=== PATIENT | male | born 1960 | race Caucasian/White ===

== ENCOUNTER 2020-02-23 20:24 | Emergency (ER) | payer OTHER, SELFPAY ==
[2020-02-23 20:25] VITALS: BP 137/79; PULSE 87; RESP 18; TEMP 38.1; O2SAT 95; BMI 30.8
--- NOTE | 2020-02-23 20:51 | ED.DCSUM_ITS ---
- ER Visit Summary Date of Service: 02/23/20 Chief Complaint: Shortness of breath History of Present Illness: The patient is a 60 M who presents with shortness of breath that has been constant for the past week. Patient states he feels like he has a tightness in his chest. Patient states it is worse with coughing and with deep breathing. Patient states he has been exposed to COVID-19. Patient denies any sputum production. Patient admits to a occasional episode of nausea and vomiting. Patient states he had a temperature at home of 101. Patient also admits to loss of smell. Physical Examination: Vital signs are stable. Patient does have a temperature of 100.5 here. Patient is in no acute distress. Oral mucosa is pink and moist. Neck is supple. Trachea is midline. There is no JVD. Heart was regular rate and rhythm. Lungs are clear and equal bilaterally. Abdomen is soft. Bowel sounds are normal. There is no tenderness. Cranial nerves II through XII are intact. There are no focal motor or sensory deficits. Test Results: CBC and comprehensive metabolic profile were obtained and were within normal limits. Verbal chest x-ray was obtained. There is interstitial infiltrates in the lungs bilaterally. There is questionable early groundglass infiltrates. Blood cultures were obtained and are pending. COVID-19 and respiratory panel were obtained and are pending. Emergency Department Course and Treatment: Patient was given albuterol inhaler here. Patient's pulse oximeter remained above 91% on room air. Patient was advised to get an [id number] pulse oximeter monitor. Patient was instructed to use his inhaler as needed. Patient was instructed to follow-up with his primary care physician in 3 to 5 days. Patient was instructed return if any worsening shortness of breath, chest pain, or worse in any way. Patient understood and was agreeable with the plan. All questions were answered. Disposition: Discharge home Impression: 1. Pneumonia 2. Likely COVID-19 This note was generated with Uniph[employer] dictation software. It may contain incorrect words, spelling, and punctuation that were not noted in review of the chart prior to signing ED Disposition - Plan for ED Patient: Disposition: Home or Assisted Living Diagnosis: Pneumonia, Suspected COVID-19 virus infection Instructions: ED PNEUMONITIS Adult Referrals: Brown Brady MD [NON-STAFF] - 3-5 Days Additional Instructions: Get an [id number] pulse oximeter monitor and check your oxygen level 3-4 times per day. Return if your oxygen level is below 90 %. Return to the emergency department if any more difficulty breathing or if you are worse in any way.
[2020-02-23] MEDS: Acetaminophen 500 MG Tablet 1000 MG PO (21:09)
--- NOTE | 2020-02-23 21:10 | RAD_ITS ---
STUDY: X-RAY CHEST REASON FOR EXAM: Male, 60 years old. Shortness of breath since yesterday. Fever and cough. Loss of smell. Body aches. TECHNIQUE: Single AP portable view of the chest. COMPARISON: None. FINDINGS: The lungs are well expanded. There is vague interstitial densities throughout both lungs which may represent early groundglass infiltrates. There is no demonstrated pleural abnormality. Normal size heart. Normal mediastinum and demarcus. Normal visualized pulmonary arteries. Normal visualized aortic arch and descending thoracic aorta. The thoracic spine is obscured by the mediastinum. Normal visualized ribs, clavicles, and shoulders. There is no demonstrated abnormality of the visualized soft tissue structures of the upper abdomen. RAD/Chest 1 View (Portable) IMPRESSION: Interstitial infiltrates in lungs. Question early groundglass infiltrates. Electronically Signed: Donald Noble DO at 21:38 EST Tel [phone], Service support ,
[2020-02-23 21:14] LABS: Absolute Lymphocyte Count 1.82 X10^3/uL (0.83-4.51); Absolute Neutrophil Count 4.9 X10^3/uL (2.0-7.7); Basophil# 0.01 X10^3/uL; Basophil% 0.1 % (0-1); Eosinophils% 1.4 % (0-5); Hematocrit 43.7 % (40-54); Hemoglobin 14.6 g/dL (13.0-16.5); Lymphocyte # 1.82 X10^3/ul (4.0); Lymphocyte % 25.5 % (19-41); Mean Corp Hgb Conc 33.4 g/dL (32-36); Mean Corpuscular Hgb 30.7 pg (27.0-32.0); Mean Platelet Vol. 10.1 fl (6.2-12.0); Monocyte# 0.25 X10^3/uL; Monocyte% 3.5 % (0-10); NRBC Flagged by Analyzer 0 % (0-5); Neutrophil # 4.93 X10^3/uL (2.7-7.7); Neutrophil % 69.2 % (47-70); POSITIVE MORPHOLOGY YES; Platelet Count 209 K/mm3 (150-450); RBC Distribution Width CV 11.7 % (11.6-14.6); RBC Distribution Width SD 39.5 fl (35.1-43.9); Red Blood Count 4.75 M/mm3 (4.6-6.2); White Blood Count 7.1 K/mm3 (4.4-11.0)
[2020-02-23 21:20] VITALS: BP 141/73; PULSE 87; RESP 18; TEMP 37.5; O2SAT 93
[2020-02-23 21:30] LABS: ALB/GLOB Ratio 0.9 RATIO (0.9-2.4); AST(SGOT) 36 U/L (15-37); Alanine Aminotransfer ALT/SGPT 53 U/L (16-61); Albumin, Serum 3.3 g/dL (3.2-5.0); Alkaline Phosphatase 90 U/L (45-117); Anion Gap 7 (5-15); BUN 13 mg/dL (7-18); BUN/Creat Ratio 12.4 RATIO (10-20); Calcium,Total 8.2 mg/dL (8.5-10.1); Chloride 103 mmol/L (98-107); Creatinine, Serum 1.05 mg/dL (0.70-1.30); Differential Indicated SCAN CRITERIA MET; EST Glomerular Filtration Rate 77 mL/min (>60); Est Glom Filt Rate - Afr Amer 93 mL/min (>60); Estimated Creatinine Clearance 83.14 ml/min; Globulin 3.7 g/dL (2.2-4.2); Glucose 133 mg/dL (74-106); Potassium 3.5 mmol/L (3.5-5.1); Sodium Level 137 mmol/L (136-145)
[2020-02-23 21:42] LABS: Differential Comment SCANNED
[2020-02-23 22:36] VITALS: BP 102/72; PULSE 80; RESP 16; TEMP 37.3; O2SAT 92
[2020-02-23 23:08] VITALS: BP 102/72; PULSE 80; RESP 16; TEMP 37.3; O2SAT 92
== END 2020-02-23 23:09 | disposition home or self-care (01) ==
PROVIDERS: Emergency Provider Emergency Medicine
DX: U07.1 COVID-19 (principal); J12.89 Other viral pneumonia
CPT/HCPCS: 71045; 80053; 85025; 87040; 87633; 87635; 99284; A4216; U0003

== ENCOUNTER 2020-02-26 10:38 | Inpatient (IN) | payer OTHER, SELFPAY ==
[2020-02-26] VITALS (8 sets, daily range): BP systolic 115–131; BP diastolic 70–79; PULSE 74–81; RESP 15–22; TEMP 37.2–37.7; O2SAT 88–97; BMI 30.7; BMI 29.2
--- NOTE | 2020-02-26 10:54 | EKG12_ITS ---
Test Reason : SOB Blood Pressure : / mmHG Vent. Rate : 079 BPM Atrial Rate : 079 BPM P-R Int : 138 ms QRS Dur : 092 ms QT Int : 370 ms P-R-T Axes : 027 016 016 degrees QTc Int : 424 ms Normal sinus rhythm Low voltage QRS (Limb Leads) Confirmed by LENNOX SERRATO, LATRICIA ([id number]), production editor GOMEZ CASTANEDA ([id number]) on 02/28/2020 12:56:03 PM Referred By: CHAMP/BRENDA Confirmed By:LATRICIA HIGH MD
--- NOTE | 2020-02-26 10:56 | ED.VISSUMM ---
- ER Visit Summary Date of Service: 02/26/20 Chief Complaint: Shortness of breath, low pulse ox History of Present Illness: The patient is a 60 M who complains of shortness of breath. Patient was seen here 3 days ago for concerns for coronavirus. His lab work looks fantastic but his chest x-ray showed some interstitial infiltrates. Coronavirus test was sent out but is not resulted yet. He returns today because of continued shortness of breath. His pulse ox was 84% on room air. He has been using an albuterol inhaler at home. He denies a history of asthma or COPD. He is a non-smoker. He is not on home oxygen. He has no chest pain. He has been having fevers at home. He has had a cough that is productive of sputum intermittently. He has no other health issues. Physical Examination: Vital signs reviewed. His pulse ox is 92% on 2 L nasal cannula. HEENT exam unremarkable. Heart is regular rate and rhythm without murmurs. Lungs have rhonchorous breath sounds bilaterally. Abdomen is soft and nontender. Extremities reveal no edema. Skin exam normal. Neurologic exam normal. Test Results: EKG is sinus rhythm with no ischemic changes. White blood cell count is increased to 12.9. Glucose 113. Troponin normal. Lactate 2.5. Chest x-ray shows worsening bilateral infiltrates Emergency Department Course and Treatment: I reviewed the patient's visit from February 22. His coronavirus test is still pending but given his symptomatology and chest x-ray findings it is fairly certain that this patient has coronavirus. He is still requiring oxygen at 2 L nasal cannula he is 92 to 93% on this. I discussed with the hospitalist for admission due to his hypoxia. She requested that we send a rapid test for confirmation. This will be performed the patient will be admitted to the Covid unit Treatment Plan: [] Disposition: Admit Impression: COVID-19, hypoxia, severe sepsis due to a viral source This note was generated with ViewRayation software. It may contain incorrect words, spelling, and punctuation that were not noted in review of the chart prior to signing ED Disposition - Plan for ED Patient: Referrals: Care Physician,No Primary [Primary Care Provider] -
--- NOTE | 2020-02-26 11:11 | RAD_ITS ---
STUDY: X-RAY CHEST REASON FOR EXAM: Male, 60 years old. patient was tested for covid, no results yet, cough, sob x 9 days TECHNIQUE: Single AP portable view of the chest. COMPARISON: 02/23/2020 FINDINGS: Increase in alveolar densities in both lungs consistent with worsening bilateral pneumonia. Azygos fissure consistent with an azygos lobe which is normal variant. Normal size heart. Normal mediastinum and demarcus. Normal visualized pulmonary arteries. Normal visualized aortic arch and descending thoracic aorta. Normal visualized thoracic spine. Normal visualized ribs, clavicles, and shoulders. There is no demonstrated abnormality of the visualized soft tissue structures of the upper abdomen. RAD/Chest 1 View (Portable) IMPRESSION: Worsening bilateral pneumonia. Electronically Signed: Ernst Fuentes MD at 11:43 EST Tel , Service support ,
[2020-02-26 11:54] LABS: Absolute Lymphocyte Count 2.68 X10^3/uL (0.83-4.51); Absolute Neutrophil Count 9.9 X10^3/uL (2.0-7.7); Basophil# 0.02 X10^3/uL; Basophil% 0.2 % (0-1); Hemoglobin 14.3 g/dL (13.0-16.5); Lymphocyte # 2.68 X10^3/ul (4.0); Lymphocyte % 20.8 % (19-41); Mean Corp Hgb Conc 33.3 g/dL (32-36); Mean Corpuscular Hgb 30.9 pg (27.0-32.0); Mean Corpuscular Volume 92.9 fL (80-94); Mean Platelet Vol. 10.4 fl (6.2-12.0); Monocyte# 0.27 X10^3/uL; Monocyte% 2.1 % (0-10); NRBC Flagged by Analyzer 0 % (0-5); Neutrophil # 9.85 X10^3/uL (2.7-7.7); Neutrophil % 76.4 % (47-70); Platelet Count 284 K/mm3 (150-450); RBC Distribution Width CV 11.9 % (11.6-14.6); RBC Distribution Width SD 41.1 fl (35.1-43.9); Red Blood Count 4.63 M/mm3 (4.6-6.2); White Blood Count 12.9 K/mm3 (4.4-11.0)
[2020-02-26 11:58] LABS: International Normalized Ratio 1.1; Prothrombin Time (Protime)PT. 13.5 SECONDS (11.7-14.9)
[2020-02-26 11:59] LABS: Partial Thromboplast Time 34.6 Seconds (24.1-36.2)
[2020-02-26 12:07] LABS: ALB/GLOB Ratio 0.6 RATIO (0.9-2.4); AST(SGOT) 39 U/L (15-37); Alanine Aminotransfer ALT/SGPT 41 U/L (16-61); Albumin, Serum 2.8 g/dL (3.2-5.0); Alkaline Phosphatase 87 U/L (45-117); Anion Gap 8 (5-15); BUN 13 mg/dL (7-18); Calcium,Total 8.7 mg/dL (8.5-10.1); Chloride 106 mmol/L (98-107); EST Glomerular Filtration Rate 82 mL/min (>60); Est Glom Filt Rate - Afr Amer 99 mL/min (>60); Globulin 4.4 g/dL (2.2-4.2); Glucose 113 mg/dL (74-106); Potassium 3.5 mmol/L (3.5-5.1); Protein, Total 7.2 g/dL (6.4-8.2); Sodium Level 139 mmol/L (136-145)
[2020-02-26 12:30] LABS: Lactic Acid 2.5 mmol/L (0.4-1.9)
[2020-02-26 12:34] LABS: Mucous, Urine 0 SEEN /hpf (<or=2+); Squamous Epithelial Cells - UA 0 SEEN /hpf (0-5)
[2020-02-26 12:36] LABS: Color, Urine Yellow (Yellow); Glucose, Dipstick Normal (Normal); Ketone-Dipstick 50 mg/dl (Negative); Leukocyte Esterase-Dipstick 25 /ul (Negative); Nitrite-Dipstick Negative (Negative); Occult Blood-Urine 10 /ul (Negative); Protein-Dipstick 30 mg/dl (Negative); Specific Gravity, Urine 1.015 (1.002-1.030); Urine Bilirubin Dipstick Negative (Negative); Urine Clarity Clear (Clear); Urine Urobilinogen 4 mg/dl (Normal); Urine pH 6.5 (5.0 - 8.0)
--- NOTE | 2020-02-26 12:40 | HP.PCM_ITS ---
Problem List (1) Hypoxia Status: Acute (2) COVID-19 Status: Acute (3) Lactic acid acidosis Status: Acute (4) Leucocytosis Status: Acute Qualifiers: Leukocytosis type: unspecified Qualified Code(s): D72.829 - Elevated white blood cell count, unspecified History of Present Illness Date of Admission: 02/26/20 Chief Complaint: SOB, cough, fever - 9 days The patient is a 60 year old M no significant past medical history who comes in with complaints of shortness of breath that started about 9 to 10 days ago. Patient was seen in the emergency department on 02/23/20 fever and worsening shortness of breath. He was discharged home on an inhaler continuous pulse oximeter remained above 91%. An outpatient test was sent out. Patient admitted that he might have been exposed on 02/10/20 at an [facility] wedding. He admits to not wearing a mask. He however has not been quarantining and because he said nobody told him to quarantine. He complains of progressive shortness of breath and fevers at home. Vitals in the ED showed temp 100.5F, HR 87, BP 137/79, RR 18, SpO2 95%. WBC count is 12.9, hemoglobin 14.3, platelet count is 284, INR 1.1, CMP is unremarkable. Lactic acid 2.5, UA unremarkable. COVID-19 PCR positive. Admitting chest x-ray showed worsening bilateral pneumonia Past Medical History Allergies No Known Allergies Allergy (Verified 02/26/20 10:48) Home Medications: Ambulatory Orders Medication Instructions Recorded Albuterol IH (ProAir) [Proair Hfa 1 - 2 puff INHALATION Q4H PRN PRN 02/26/20 (SP)Vent Pts] Surgical History: no surgical history Psychiatric History: No pertinent psych hx Lives: Alone Smoking Status: Former smoker Tobacco Use: Non-smoker Alcohol: None Drugs: None - *Family History Maternal History Items: No pertinent history Paternal History Items: No pertinent history Review of Systems Constitutional: Reports: Fever, Malaise, Weakness, Fatigue. Denies: Anorexia, Chills, Weight Change Eyes: Denies: Blurred vision, Cataracts, Drainage, Eyelid Inflammation HEENT: Denies: Difficulty Hearing, Difficulty Swallowing, Head Aches, Hearing Changes, Nasal bleeding, Nasal Congestion, Sinus Congestion, Sinus Drainage Cardiovascular: Denies: Chest Pain, Claudication, Heaviness, Light Headedness, Palpitations Respiratory: Reports: Shortness of Breath, Shortness of breath at rest, Shortness of breath upon exertion. Denies: Cough, Sputum production Gastrointestinal: Denies: Abdominal Pain, Constipation, Hematemesis, Hematochezia, Nausea, Vomiting Genitourinary: Denies: Dysuria Musculoskeletal: Denies: Joint Pain, Joint stiffness, Joint swelling, Joint Tenderness Skin: Denies: Rash, Wounds Neurological: Denies: Numbness, Tingling, Focal weakness Psychiatric: Denies: Anxiety, Depression, Homicidal Ideations, Suicidal Ideations Hematologic/ Lymphatic: Denies: Easy Bruising, Easy Bleeding VTE Information - Inpt Only VTE Present on Admission: No VTE Pharm Prophylaxis ordered?: Yes Patient Problems: Active and Suspected Problems Hypoxia (Acute) COVID-19 (Acute) Lactic acid acidosis (Acute) Leucocytosis (Acute) - Physical Exam Vitals/I&O's: Vital Signs Temp Pulse Resp BP Pulse Ox 99.2 F H 81 21 H 117/71 92 02/26/20 11:01 02/26/20 10:46 02/26/20 10:46 02/26/20 10:46 02/26/20 10:46 Oxygen Flow Rate (L/min) 2 Oxygen Delivery Method Nasal Cannula Weight: 102.8 kg Body Mass Index (BMI) 30.7 General: Alert, Oriented x3, Cooperative, No apparent distress HEENT: Atraumatic, PERRLA, EOMI, Normocephalic Oral: Moist Mucosa Neck: Supple Lungs: Diminished Cardiovascular: Regular rate, Regular Rhythm, Normal S1, Normal S2, No murmurs Abdomen: Bowel Sounds Present, Soft, Non Tender, Non-Distended, No Hepato- splenomegaly Extremities: No edema Skin: No rashes Musculoskeletal: No Tenderness to Palpation of Joints or Extremities Lymphatic: No Cervical, Supraclavicular, or Inguinal Adenopathy Neurological: Cranial nerves II-XII grossly intact, Neuro grossly intact Psych/Mental Status: Normal Affect, Appropriate Laboratory Results 02/26/20 10:50: WBC 12.9 H, RBC 4.63, Hgb 14.3, Hct 43.0, MCV 92.9, MCH 30.9, MCHC 33.3, RDW Std Deviation 41.1, RDW Coeff of Soumya 11.9, Plt Count 284, MPV 10.4, Immature Gran % (Auto) 0.500, Neut % (Auto) 76.4 H, Lymph % (Auto) 20.8, Nuckolls % (Auto) 2.1, Eos % (Auto) 0.0, Baso % (Auto) 0.2, Absolute Neuts (auto) 9.9 H, Absolute Lymphs (auto) 2.68, Nucleated RBC % 0 02/26/20 10:50: PT 13.5, INR 1.1, APTT 34.6 02/26/20 10:50: Sodium 139, Potassium 3.5, Chloride 106, Carbon Dioxide 25.0, Anion Gap 8, BUN 13, Creatinine 1.00, Estim Creat Clear Calc 87.30, Est GFR (MDRD) Af Amer 99, Est GFR (MDRD) Non-Af 82, BUN/Creatinine Ratio 13.0, Glucose 113 H, Calcium 8.7, Total Bilirubin 0.70, AST 39 H, ALT 41, Alkaline Phosphatase 87, Troponin I < 0.015, Total Protein 7.2, Albumin 2.8 L, Globulin 4.4 H, Albumin/Globulin Ratio 0.6 L 02/26/20 10:50: Lactic Acid 2.5 H* 02/26/20 12:20: Urine Color Yellow, Urine Clarity Clear, Urine pH 6.5, Ur Specific [place] 1.015, Urine Protein 30 H, Urine Glucose (UA) Normal, Urine Ketones 50 H, Urine Occult Blood 10 H, Urine Nitrite Negative, Urine Bilirubin Negative, Urine Urobilinogen 4 H, Ur Leukocyte Esterase 25 H, Urine RBC Pending, Urine WBC Pending, Ur Squamous Epith Cells Pending, Urine Bacteria Pending, Urine Mucus Pending Assessment/Plan All Active Problems Hypoxia (Acute) COVID-19 (Acute) Lactic acid acidosis (Acute) Leucocytosis (Acute) 1. Acute hypoxic respiratory insufficiency secondary to acute COVID-19 infection Continue with breathing treatments, IV steroids, encourage use of incentive spirometer. Wean off oxygen for SPO2 more than 94% 2. Acute COVID-19 with hypoxia, Started on IV dexamethasone. Will check D-dimer ID and pulmo consulted 3. Lactic acidosis secondary to hypoxia 4. DVT PPx- Lovenox SC Inpatient E&M: [id number] Init Hosp L2
[2020-02-26 12:42] LABS: Bacteria 1+ /hpf (None Seen); Red Blood Cells-Urine 0-5 SEEN /hpf (0-5); White Blood Cells 0-5 SEEN /hpf (0-5)
[2020-02-26] MEDS: dexAMETHasone 10 MG/ML Vial IV (12:59)
[2020-02-26] MEDS: 0.9% Normal Saline 1,000 ML 150 ML IV (13:00)
[2020-02-26 14:07] LABS: Probe Check PASS; Specimen Processing Control PASS
[2020-02-26 15:34] LABS: Reflex Lactate? Y
[2020-02-26 17:17] LABS: D-Dimer Quantitative (DVT/PE) 0.84 FEU/ug/m (0.27-0.49)
[2020-02-26 17:26] LABS: Lactic Acid 1.3 mmol/L (0.4-1.9)
--- NOTE | 2020-02-26 18:50 | CT_ITS ---
STUDY: CTA CHEST REASON FOR EXAM: Male, 60 years old. SOB AND COUGH X 9-10 DAYS,+ COVID TEST RADIATION DOSAGE (If Supplied By Facility): CTDIvol = ( 13.84 ) mGy, DLP = ( 555.60 ) mGycm TECHNIQUE: The examination was performed with the intravenous administration of IV 100mL Isovue-370. Post-processing of the angiographic images was performed, with multiplanar reformation and 3D reconstruction. Individualized dose optimization techniques were used for this CT. COMPARISON: None. FINDINGS: Normal enhancement of the main pulmonary artery and right and left pulmonary arteries. Normal enhancement of the bilateral peripheral pulmonary arteries. There is no demonstrated pulmonary embolism. Normal thoracic aorta and visualized great vessels. There is no demonstrated aortic dissection. Normal heart and pericardium. Mild mediastinal adenopathy. Normal hilar regions. Normal visualized trachea and bronchi. The lungs are well expanded. Bilateral diffuse infiltrates. Normal chest wall structures. Degenerative vertebral changes. Small hiatal hernia. CT/CTA Chest W/WO Contrast IMPRESSION: No demonstrated pulmonary embolism or arterial dissection. Bilateral diffuse pulmonary infiltrates. Mild mediastinal adenopathy. Small hiatal hernia. Electronically Signed: Castro Cordon DO at 20:43 EST Tel [phone], Service support ,
[2020-02-26] MEDS: Enoxaparin 30 MG/0.3 ML Syringe SC (21:50)
[2020-02-27] VITALS (8 sets, daily range): BP systolic 115–128; BP diastolic 64–75; PULSE 67–84; RESP 18–20; TEMP 36.9–38.2; O2SAT 90–94
[2020-02-27] MEDS: Acetaminophen 325 MG Tablet 650 MG PO (00:22)
[2020-02-27 05:46] LABS: Absolute Lymphocyte Count 3.83 X10^3/uL (0.83-4.51); Absolute Neutrophil Count 12.1 X10^3/uL (2.0-7.7); Basophil# 0.01 X10^3/uL; Basophil% 0.1 % (0-1); Hemoglobin 13.7 g/dL (13.0-16.5); Lymphocyte # 3.83 X10^3/ul (4.0); Lymphocyte % 23.4 % (19-41); Mean Corp Hgb Conc 33.4 g/dL (32-36); Mean Corpuscular Hgb 30.9 pg (27.0-32.0); Mean Corpuscular Volume 92.6 fL (80-94); Mean Platelet Vol. 10.3 fl (6.2-12.0); Monocyte# 0.37 X10^3/uL; Monocyte% 2.3 % (0-10); NRBC Flagged by Analyzer 0 % (0-5); Neutrophil # 12.11 X10^3/uL (2.7-7.7); Neutrophil % 73.8 % (47-70); Platelet Count 342 K/mm3 (150-450); RBC Distribution Width CV 11.9 % (11.6-14.6); RBC Distribution Width SD 40.9 fl (35.1-43.9); Red Blood Count 4.43 M/mm3 (4.6-6.2); White Blood Count 16.4 K/mm3 (4.4-11.0)
[2020-02-27 06:12] LABS: ALB/GLOB Ratio 0.7 RATIO (0.9-2.4); AST(SGOT) 36 U/L (15-37); Alanine Aminotransfer ALT/SGPT 37 U/L (16-61); Albumin, Serum 2.6 g/dL (3.2-5.0); Alkaline Phosphatase 85 U/L (45-117); Anion Gap 8 (5-15); BUN 14 mg/dL (7-18); BUN/Creat Ratio 18.3 RATIO (10-20); Chloride 105 mmol/L (98-107); Creatinine, Serum 0.76 mg/dL (0.70-1.30); EST Glomerular Filtration Rate 111 mL/min (>60); Est Glom Filt Rate - Afr Amer 134 mL/min (>60); Estimated Creatinine Clearance 114.87 ml/min; Globulin 3.5 g/dL (2.2-4.2); Glucose 109 mg/dL (74-106); Protein, Total 6.1 g/dL (6.4-8.2); Sodium Level 138 mmol/L (136-145)
--- NOTE | 2020-02-27 07:59 | CON.PCM_ITS ---
Reason for Consult Date of Consultation: 02/27/20 Reason for Consultation: Acute hypoxemic respiratory failure secondary to Covid pneumonia History of Present Illness: The patient is a 60-year-old male, with a history as outlined below, who presented to the emergency department on February 25 with complaints of shortness of breath, fever, malaise and hypoxemia. The patient was just evaluated in the emergency department on February 22 under similar circumstances. A send out coronavirus test was obtained at that time. The patient reported that he likely contracted coronavirus when he was attending a wedding on February 09. He does report that his and son have also been ill recently, but neither of them have been tested for Covid. In general, the patient's symptoms have been present now for approximately 10 days. On presentation to the emergency department, the patient was noted to have a low-grade fever and was maintaining an oxygen saturation of 88% on room air. Laboratory evaluation revealed a mildly elevated white blood cell count to 13,000. D-dimer was mildly elevated to 0.84. Chemistry profile was unrevealing. Lactate was elevated to 2.5. Troponin was negative. Coronavirus PCR was positive. CTA chest revealed diffuse bilateral pulmonary infiltrates without pulmonary embolism. The patient was placed on Decadron and admitted to the coronavirus cohort unit for further management. Past Medical History Allergies No Known Allergies Allergy (Verified 02/26/20 10:48) Home Medications: Ambulatory Orders Medication Instructions Recorded Albuterol IH (ProAir) [Proair Hfa 1 - 2 puff INHALATION Q4H PRN PRN 02/26/20 (SP)Vent Pts] Surgical History: no surgical history Psychiatric History: No pertinent psych hx Lives: Alone Smoking Status: Former smoker Tobacco Use: Non-smoker Alcohol: None Drugs: None - *Family History Maternal History Items: No pertinent history Paternal History Items: No pertinent history Review of Systems Constitutional: Reports: Chills, Fever, Malaise, Fatigue Eyes: Denies: Blurred vision, Double vision HEENT: Denies: Head Aches, Sinus Congestion, Sinus Drainage Cardiovascular: Denies: Chest Pain, Palpitations Respiratory: Reports: Cough, Shortness of Breath Gastrointestinal: Denies: Abdominal Pain, Nausea, Vomiting Genitourinary: Denies: Dysuria Musculoskeletal: Denies: Joint Pain, Joint Tenderness Skin: Denies: Rash, Wounds Neurological: Denies: Numbness, Tingling, Focal weakness Psychiatric: Denies: Anxiety, Depression, Homicidal Ideations, Suicidal Ideations Hematologic/ Lymphatic: Denies: Easy Bruising, Easy Bleeding Patient Problems: Active and Suspected Problems Hypoxia (Acute) COVID-19 (Acute) Lactic acid acidosis (Acute) Leucocytosis (Acute) Objective: The patient's most recent lab work, culture data and imaging studies have all been personally reviewed. Coronavirus PCR was positive on February 25. - Physical Exam Vitals/I&O's: Vital Signs Temp Pulse Resp BP Pulse Ox 99.1 F 67 18 119/64 90 02/27/20 02:49 02/27/20 05:29 02/27/20 02:49 02/27/20 02:49 02/27/20 05:29 Oxygen Flow Rate (L/min) 5 Oxygen Delivery Method Nasal Cannula Weight: 216 lb Body Mass Index (BMI) 29.2 Intake and Output for Last 24 Hours 02/25/20 02/26/20 02/27/20 23:59 23:59 23:59 Intake Total 660 / 660 Balance 660 / 660 General: Alert, Oriented x3, Cooperative, No apparent distress HEENT: Atraumatic, PERRLA, Normocephalic Oral: No Gingival or Mucosal Lesions/ Ulcerations Neck: Supple, No Nodes, Trachea Midline Lungs: Diminished Cardiovascular: Regular rate, Regular Rhythm Abdomen: Bowel Sounds Present, Soft, Non Tender Extremities: No clubbing, No cyanosis, No edema Skin: No breakdown Musculoskeletal: No Muscle Wasting Lymphatic: No Cervical, Supraclavicular, or Inguinal Adenopathy Neurological: Cranial nerves II-XII grossly intact, Neuro grossly intact Psych/Mental Status: Normal Affect, Appropriate Labs (Last 48 Hours) 02/26/20 02/26/20 02/26/20 10:50 10:50 10:50 WBC 12.9 H RBC 4.63 Hgb 14.3 Hct 43.0 MCV 92.9 MCH 30.9 MCHC 33.3 RDW Std Deviation 41.1 RDW Coeff of Soumya 11.9 Plt Count 284 MPV 10.4 Immature Gran % (Auto) 0.500 Neut % (Auto) 76.4 H Lymph % (Auto) 20.8 [place] % (Auto) 2.1 Eos % (Auto) 0.0 Baso % (Auto) 0.2 Absolute Neuts (auto) 9.9 H Absolute Lymphs (auto) 2.68 Nucleated RBC % 0 PT 13.5 INR 1.1 APTT 34.6 D-Dimer Quant (PE/DVT) Sodium 139 Potassium 3.5 Chloride 106 Carbon Dioxide 25.0 Anion Gap 8 BUN 13 Creatinine 1.00 Estim Creat Clear Calc 87.30 Est GFR (MDRD) Af Amer 99 Est GFR (MDRD) Non-Af 82 BUN/Creatinine Ratio 13.0 Glucose 113 H Lactic Acid Calcium 8.7 Total Bilirubin 0.70 AST 39 H ALT 41 Alkaline Phosphatase 87 Troponin I < 0.015 Total Protein 7.2 Albumin 2.8 L Globulin 4.4 H Albumin/Globulin Ratio 0.6 L Urine Color Urine Clarity Urine pH Ur Specific [place] Urine Protein Urine Glucose (UA) Urine Ketones Urine Occult Blood Urine Nitrite Urine Bilirubin Urine Urobilinogen Ur Leukocyte Esterase Urine RBC Urine WBC Ur Squamous Epith Cells Urine Bacteria Urine Mucus COVID-19 (CRAIG) 02/26/20 02/26/20 02/26/20 10:50 12:20 12:53 WBC RBC Hgb Hct MCV MCH MCHC RDW Std Deviation RDW Coeff of Soumya Plt Count MPV Immature Gran % (Auto) Neut % (Auto) Lymph % (Auto) [place] % (Auto) Eos % (Auto) Baso % (Auto) Absolute Neuts (auto) Absolute Lymphs (auto) Nucleated RBC % PT INR APTT D-Dimer Quant (PE/DVT) Sodium Potassium Chloride Carbon Dioxide Anion Gap BUN Creatinine Estim Creat Clear Calc Est GFR (MDRD) Af Amer Est GFR (MDRD) Non-Af BUN/Creatinine Ratio Glucose Lactic Acid 2.5 H* Calcium Total Bilirubin AST ALT Alkaline Phosphatase Troponin I Total Protein Albumin Globulin Albumin/Globulin Ratio Urine Color Yellow Urine Clarity Clear Urine pH 6.5 Ur Specific [place] 1.015 Urine Protein 30 H Urine Glucose (UA) Normal Urine Ketones 50 H Urine Occult Blood 10 H Urine Nitrite Negative Urine Bilirubin Negative Urine Urobilinogen 4 H Ur Leukocyte Esterase 25 H Urine RBC 0-5 SEEN Urine WBC 0-5 SEEN Ur Squamous Epith Cells 0 SEEN Urine Bacteria 1+ Urine Mucus 0 SEEN COVID-19 (CRAIG) Positive 02/26/20 02/26/20 02/27/20 16:25 16:25 04:48 WBC 16.4 H RBC 4.43 L Hgb 13.7 Hct 41.0 MCV 92.6 MCH 30.9 MCHC 33.4 RDW Std Deviation 40.9 RDW Coeff of Soumya 11.9 Plt Count 342 MPV 10.3 Immature Gran % (Auto) 0.400 Neut % (Auto) 73.8 H Lymph % (Auto) 23.4 [place] % (Auto) 2.3 Eos % (Auto) 0.0 Baso % (Auto) 0.1 Absolute Neuts (auto) 12.1 H Absolute Lymphs (auto) 3.83 Nucleated RBC % 0 PT INR APTT D-Dimer Quant (PE/DVT) 0.84 H* Sodium Potassium Chloride Carbon Dioxide Anion Gap BUN Creatinine Estim Creat Clear Calc Est GFR (MDRD) Af Amer Est GFR (MDRD) Non-Af BUN/Creatinine Ratio Glucose Lactic Acid 1.3 Calcium Total Bilirubin AST ALT Alkaline Phosphatase Troponin I Total Protein Albumin Globulin Albumin/Globulin Ratio Urine Color Urine Clarity Urine pH Ur Specific [place] Urine Protein Urine Glucose (UA) Urine Ketones Urine Occult Blood Urine Nitrite Urine Bilirubin Urine Urobilinogen Ur Leukocyte Esterase Urine RBC Urine WBC Ur Squamous Epith Cells Urine Bacteria Urine Mucus COVID-19 (CRAIG) 02/27/20 04:48 WBC RBC Hgb Hct MCV MCH MCHC RDW Std Deviation RDW Coeff of Soumya Plt Count MPV Immature Gran % (Auto) Neut % (Auto) Lymph % (Auto) [place] % (Auto) Eos % (Auto) Baso % (Auto) Absolute Neuts (auto) Absolute Lymphs (auto) Nucleated RBC % PT INR APTT D-Dimer Quant (PE/DVT) Sodium 138 Potassium 4.0 Chloride 105 Carbon Dioxide 25.0 Anion Gap 8 BUN 14 Creatinine 0.76 Estim Creat Clear Calc 114.87 Est GFR (MDRD) Af Amer 134 Est GFR (MDRD) Non-Af 111 BUN/Creatinine Ratio 18.3 Glucose 109 H Lactic Acid Calcium 8.0 L Total Bilirubin 0.60 AST 36 ALT 37 Alkaline Phosphatase 85 Troponin I Total Protein 6.1 L Albumin 2.6 L Globulin 3.5 Albumin/Globulin Ratio 0.7 L Urine Color Urine Clarity Urine pH Ur Specific [place] Urine Protein Urine Glucose (UA) Urine Ketones Urine Occult Blood Urine Nitrite Urine Bilirubin Urine Urobilinogen Ur Leukocyte Esterase Urine RBC Urine WBC Ur Squamous Epith Cells Urine Bacteria Urine Mucus COVID-19 (CRAIG) Clinical Impression(s) from Imaging Studies Chest X-Ray 02/26/20 11:11 IMPRESSION: Worsening bilateral pneumonia. Electronically Signed: Ernst Fuentes MD at 11:43 EST Tel , Service support , Chest CTA 02/26/20 18:50 IMPRESSION: No demonstrated pulmonary embolism or arterial dissection. Bilateral diffuse pulmonary infiltrates. Mild mediastinal adenopathy. Small hiatal hernia. Electronically Signed: Castro Cordon DO at 20:43 EST Tel [phone], Service support , Current Medications Acetaminophen (Acetaminophen 325 Mg Tablet) 650 mg PO Q6H PRN PRN PRN Reason: Pain Score 1-10/Temp > 100.7 F Last Admin: 02/27/20 00:22 Dose: 650 mg Documented by: Al Hydroxide/Mg Hydroxide (Mag Hydrox/Al Hydrox/Simeth 30 Ml Udc) 30 ml PO Q6H PRN PRN PRN Reason: Gastric Burning Dexamethasone Sodium Phosphate (Dexamethasone 10 Mg/Ml Vial) 6 mg IV DAILY JOSE L Enoxaparin Sodium (Enoxaparin 30 Mg/0.3 Ml Syringe) 30 mg SC BID [facility] Last Admin: 02/26/20 21:50 Dose: 30 mg Documented by: Sodium Chloride () 250 mls @ 15 mls/hr IV .[id number] PRN PRN Reason: Saline Flush Sodium Chloride () 250 mls @ 15 mls/hr IV .[id number] PRN PRN Reason: Additional IVPB Infusion Ondansetron HCl (Ondansetron 4 Mg/2 Ml Vial) 4 mg IV Q8H PRN PRN PRN Reason: NAUSEA/VOMITING Psyllium Hydrophilic Mucilloid (Psyllium 1 Packet) 1 packet PO DAILY PRN PRN PRN Reason: Constipation Senna/Docusate Sodium (Senna/Docusate Sodium 1 Tablet) 2 tablet PO BID PRN PRN PRN Reason: Constipation Sodium Chloride (0.9% Saline Lock 10 Ml Syringe) 10 - 40 ml IV UD PRN PRN Reason: SALINE FLUSH Assessment/Plan All Active Problems Hypoxia (Acute) COVID-19 (Acute) Lactic acid acidosis (Acute) Leucocytosis (Acute) RECOMMENDATIONS: 1. Start remdesivir. Monitor liver and renal function accordingly. 2. Wean supplemental oxygen to maintain saturations at or above 90%. 3. Continue Decadron 6 mg daily x10 days. 4. Continue Lovenox as ordered. 5. Encourage incentive spirometer use and mobilize patient as tolerated. IMPRESSIONS: 1. Acute hypoxemic respiratory failure secondary to COVID-19 pneumonia Plan to continue current supportive measures with supplemental oxygen to maintain saturations at or above 90%. Liver and renal function are within normal limits. Remdesivir has been ordered. We will plan to hold off on convalescent plasma. Continue Lovenox for DVT prophylaxis is ordered. Continue Decadron 6 mg daily with plans to complete a 10-day treatment course. This note was generated with [employer] dictation software. It may contain incorrect words, spelling, and punctuation that were not noted in checking the note before signing. Inpatient E&M: 26667 Init Hosp L3
--- NOTE | 2020-02-27 08:06 | PCM.PN.HOSP ---
Patient Problems: Active and Suspected Problems Hypoxia (Acute) COVID-19 (Acute) Lactic acid acidosis (Acute) Leucocytosis (Acute) Reason for Visit: Acute COVID-19 bilateral pneumonia with hypoxemia Objective: The patient was admitted with acute hypoxic respiratory failure secondary to COVID-19 pneumonia with shortness of breath, low-grade fever and hypoxia. He attended admission pending on February 09. He does not wear a mask and has not been quarantining or isolating. Low-grade fever T-max 100.7 Fahrenheit. Heart rate and blood pressure is controlled. On 5 L of oxygen, pulse ox 90%. Patient is not having nausea, vomiting or diarrhea. No abdominal pain. Mild cough with purulent sputum. Physical exam General: Alert, Oriented x3, Cooperative HEENT: Atraumatic, PERRLA, EOMI, Normocephalic Oral: No Gingival or Mucosal Lesions/ Ulcerations Neck: Supple, No JVD, Negative Carotid Bruits Lungs: Air entry diminished in bilateral lung bases. Bilateral right lung base crepitation. Cardiovascular: Regular rate, Regular Rhythm, Normal S1, Normal S2, No murmurs Abdomen: Bowel Sounds Present, Soft, Non Tender, Non-Distended : No renal angle tenderness. No suprapubic tenderness. Extremities: No edema, Capillary Refill Less than 3 Seconds Skin: No rashes, No breakdown Musculoskeletal: No Tenderness to Palpation of Joints or Extremities Neurological: Cranial nerves II-XII grossly intact, Deep Tendon Reflexes 2+/4 and Symmetrical, Neuro grossly intact Psych/Mental Status: Normal Affect, Appropriate. Vitals/I&O's: Vital Signs Temp Pulse Resp BP Pulse Ox 99.1 F 67 18 119/64 90 02/27/20 02:49 02/27/20 05:29 02/27/20 02:49 02/27/20 02:49 02/27/20 05:29 Oxygen Flow Rate (L/min) 5 Oxygen Delivery Method Nasal Cannula Weight: 216 lb Body Mass Index (BMI) 29.2 Intake and Output for Last 24 Hours 02/25/20 02/26/20 02/27/20 23:59 23:59 23:59 Intake Total 660 / 660 Balance 660 / 660 Laboratory Results 02/26/20 10:50: WBC 12.9 H, RBC 4.63, Hgb 14.3, Hct 43.0, MCV 92.9, MCH 30.9, MCHC 33.3, RDW Std Deviation 41.1, RDW Coeff of Soumya 11.9, Plt Count 284, MPV 10.4, Immature Gran % (Auto) 0.500, Neut % (Auto) 76.4 H, Lymph % (Auto) 20.8, [place] % (Auto) 2.1, Eos % (Auto) 0.0, Baso % (Auto) 0.2, Absolute Neuts (auto) 9.9 H, Absolute Lymphs (auto) 2.68, Nucleated RBC % 0 02/26/20 10:50: PT 13.5, INR 1.1, APTT 34.6 02/26/20 10:50: Sodium 139, Potassium 3.5, Chloride 106, Carbon Dioxide 25.0, Anion Gap 8, BUN 13, Creatinine 1.00, Estim Creat Clear Calc 87.30, Est GFR (MDRD) Af Amer 99, Est GFR (MDRD) Non-Af 82, BUN/Creatinine Ratio 13.0, Glucose 113 H, Calcium 8.7, Total Bilirubin 0.70, AST 39 H, ALT 41, Alkaline Phosphatase 87, Troponin I < 0.015, Total Protein 7.2, Albumin 2.8 L, Globulin 4.4 H, Albumin/Globulin Ratio 0.6 L 02/26/20 10:50: Lactic Acid 2.5 H* 02/26/20 12:20: Urine Color Yellow, Urine Clarity Clear, Urine pH 6.5, Ur Specific [place] 1.015, Urine Protein 30 H, Urine Glucose (UA) Normal, Urine Ketones 50 H, Urine Occult Blood 10 H, Urine Nitrite Negative, Urine Bilirubin Negative, Urine Urobilinogen 4 H, Ur Leukocyte Esterase 25 H, Urine RBC 0-5 SEEN, Urine WBC 0-5 SEEN, Ur Squamous Epith Cells 0 SEEN, Urine Bacteria 1+, Urine Mucus 0 SEEN 02/26/20 12:53: COVID-19 (CRAIG) Positive 02/26/20 16:25: Lactic Acid 1.3 02/26/20 16:25: D-Dimer Quant (PE/DVT) 0.84 H* 02/27/20 04:48: WBC 16.4 H, RBC 4.43 L, Hgb 13.7, Hct 41.0, MCV 92.6, MCH 30.9, MCHC 33.4, RDW Std Deviation 40.9, RDW Coeff of Soumya 11.9, Plt Count 342, MPV 10.3, Immature Gran % (Auto) 0.400, Neut % (Auto) 73.8 H, Lymph % (Auto) 23.4, [place] % (Auto) 2.3, Eos % (Auto) 0.0, Baso % (Auto) 0.1, Absolute Neuts (auto) 12.1 H, Absolute Lymphs (auto) 3.83, Nucleated RBC % 0 02/27/20 04:48: Sodium 138, Potassium 4.0, Chloride 105, Carbon Dioxide 25.0, Anion Gap 8, BUN 14, Creatinine 0.76, Estim Creat Clear Calc 114.87, Est GFR (MDRD) Af Amer 134, Est GFR (MDRD) Non-Af 111, BUN/Creatinine Ratio 18.3, Glucose 109 H, Calcium 8.0 L, Total Bilirubin 0.60, AST 36, ALT 37, Alkaline Phosphatase 85, Total Protein 6.1 L, Albumin 2.6 L, Globulin 3.5, Albumin/Globulin Ratio 0.7 L Current Medications Acetaminophen (Acetaminophen 325 Mg Tablet) 650 mg PO Q6H PRN PRN PRN Reason: Pain Score 1-10/Temp > 100.7 F Last Admin: 02/27/20 00:22 Dose: 650 mg Documented by: Al Hydroxide/Mg Hydroxide (Mag Hydrox/Al Hydrox/Simeth 30 Ml Udc) 30 ml PO Q6H PRN PRN PRN Reason: Gastric Burning Dexamethasone Sodium Phosphate (Dexamethasone 10 Mg/Ml Vial) 6 mg IV DAILY [facility] Enoxaparin Sodium (Enoxaparin 30 Mg/0.3 Ml Syringe) 30 mg SC BID [facility] Last Admin: 02/26/20 21:50 Dose: 30 mg Documented by: Sodium Chloride () 250 mls @ 15 mls/hr IV .[id number] PRN PRN Reason: Saline Flush Sodium Chloride () 250 mls @ 15 mls/hr IV .[id number] PRN PRN Reason: Additional IVPB Infusion Ondansetron HCl (Ondansetron 4 Mg/2 Ml Vial) 4 mg IV Q8H PRN PRN PRN Reason: NAUSEA/VOMITING Psyllium Hydrophilic Mucilloid (Psyllium 1 Packet) 1 packet PO DAILY PRN PRN PRN Reason: Constipation Senna/Docusate Sodium (Senna/Docusate Sodium 1 Tablet) 2 tablet PO BID PRN PRN PRN Reason: Constipation Sodium Chloride (0.9% Saline Lock 10 Ml Syringe) 10 - 40 ml IV UD PRN PRN Reason: SALINE FLUSH STROKE Vital Signs/Narrative: Vital Signs Pulse Pulse Ox 02/27/20 05:29 67 90 Medical Necessity - Tobacco Use Smoking Status: Former smoker Tobacco Use: Non-smoker Assessment/Plan All Active Problems Hypoxia (Acute) COVID-19 (Acute) Lactic acid acidosis (Acute) Leucocytosis (Acute) 1. Acute hypoxic respiratory failure secondary to acute COVID-19 infection: Patient is still on 5 L of oxygen. On IV remdesivir. Stop date on 03/02/2020. Continue with breathing treatments, IV steroids, encourage use of incentive spirometer. PEP. Wean off oxygen for SPO2 more than 94%. D-dimer elevated 0.84. On Lovenox 30 mg subcu twice daily 2. Acute COVID-19 with hypoxia, Started on IV dexamethasone. ID and pulmo consulted. Discussed with ID 3. Lactic acidosis secondary to hypoxia 4. DVT PPx- Lovenox SC Clinical Impression(s) from Imaging Studies Chest X-Ray 02/26/20 11:11 IMPRESSION: Worsening bilateral pneumonia. Chest CTA 02/26/20 18:50 IMPRESSION: No demonstrated pulmonary embolism or arterial dissection. Bilateral diffuse pulmonary infiltrates. Mild mediastinal adenopathy. Small hiatal hernia. Laboratory Results 02/26/20 12:20: Urine RBC 0-5 SEEN, Urine WBC 0-5 SEEN, Ur Squamous Epith Cells 0 SEEN, Urine Bacteria 1+, Urine Mucus 0 SEEN 02/26/20 12:53: COVID-19 (CRAIG) Positive 02/26/20 16:25: Lactic Acid 1.3 02/26/20 16:25: D-Dimer Quant (PE/DVT) 0.84 H* 02/27/20 04:48: WBC 16.4 H, RBC 4.43 L, Hgb 13.7, Hct 41.0, MCV 92.6, MCH 30.9, MCHC 33.4, RDW Std Deviation 40.9, RDW Coeff of Soumya 11.9, Plt Count 342, MPV 10.3, Immature Gran % (Auto) 0.400, Neut % (Auto) 73.8 H, Lymph % (Auto) 23.4, [place] % (Auto) 2.3, Eos % (Auto) 0.0, Baso % (Auto) 0.1, Absolute Neuts (auto) 12.1 H, Absolute Lymphs (auto) 3.83, Nucleated RBC % 0 02/27/20 04:48: Sodium 138, Potassium 4.0, Chloride 105, Carbon Dioxide 25.0, Anion Gap 8, BUN 14, Creatinine 0.76, Estim Creat Clear Calc 114.87, Est GFR (MDRD) Af Amer 134, Est GFR (MDRD) Non-Af 111, BUN/Creatinine Ratio 18.3, Glucose 109 H, Calcium 8.0 L, Total Bilirubin 0.60, AST 36, ALT 37, Alkaline Phosphatase 85, Total Protein 6.1 L, Albumin 2.6 L, Globulin 3.5, Albumin/Globulin Ratio 0.7 L 02/27/20 04:48: Alkaline Phosphatase 81 Inpatient E&M: 28391 Subs Hosp L2
[2020-02-27] MEDS: dexAMETHasone 10 MG/ML Vial 6 MG IV (09:09)
[2020-02-27] MEDS: 0.9% Saline Lock 10 ML Syringe IV (09:10)
[2020-02-27] MEDS: Enoxaparin 30 MG/0.3 ML Syringe SC (09:11)
[2020-02-27 09:45] LABS: Alkaline Phosphatase 81 U/L (45-117)
--- NOTE | 2020-02-27 12:57 | PCM.HP.ID ---
Problem List (1) COVID-19 Status: Acute Reason for Consult: covid Consulted by: Dr. Galicia History of Present Illness: The patient is a 60 year old M who presented with sx since 02/16/20. Went to [facility] 02/09, did not wear a mask. Developed cough, fever, loss of smell, mild aches, mild nausea, fatigue. Smell and aches are improved. Lives with 3 others who are also sick but improving, have not been tested. Came to ED with weakness and dyspnea. Put on O2, dex, remdesivir. Full ROS performed and neg except as noted above. - Medical History Surgical History: reviewed Allergies/Adverse Reactions: Allergies No Known Allergies Allergy (Verified 02/26/20 10:48) Home Medications: Ambulatory Orders Medication Instructions Recorded Albuterol IH (ProAir) [Proair Hfa 1 - 2 puff INHALATION Q4H PRN PRN 02/26/20 (SP)Vent Pts] - Social History SMOKING STATUS:: Former smoker Vital Signs Temp Pulse Resp BP Pulse Ox 98.6 F 82 18 121/74 H 91 02/27/20 08:57 02/27/20 08:57 02/27/20 08:57 02/27/20 08:57 02/27/20 08:57 Oxygen Flow Rate (L/min) 5 Oxygen Delivery Method Nasal Cannula Weight: 97.976 kg Body Mass Index (BMI) 29.2 Laboratory Tests Past 24 Hrs 02/26/20 02/26/20 02/26/20 12:53 16:25 16:25 WBC RBC Hgb Hct MCV MCH MCHC RDW Std Deviation RDW Coeff of Soumya Plt Count MPV Immature Gran % (Auto) Neut % (Auto) Lymph % (Auto) [place] % (Auto) Eos % (Auto) Baso % (Auto) Absolute Neuts (auto) Absolute Lymphs (auto) Nucleated RBC % D-Dimer Quant (PE/DVT) 0.84 H* Sodium Potassium Chloride Carbon Dioxide Anion Gap BUN Creatinine Estim Creat Clear Calc Est GFR (MDRD) Af Amer Est GFR (MDRD) Non-Af BUN/Creatinine Ratio Glucose Lactic Acid 1.3 Calcium Total Bilirubin AST ALT Alkaline Phosphatase Total Protein Albumin Globulin Albumin/Globulin Ratio COVID-19 (CRAIG) Positive 11/16/20 11/16/20 11/16/20 04:48 04:48 04:48 WBC 16.4 H RBC 4.43 L Hgb 13.7 Hct 41.0 MCV 92.6 MCH 30.9 MCHC 33.4 RDW Std Deviation 40.9 RDW Coeff of Soumay 11.9 Plt Count 342 MPV 10.3 Immature Gran % (Auto) 0.400 Neut % (Auto) 73.8 H Lymph % (Auto) 23.4 [place] % (Auto) 2.3 Eos % (Auto) 0.0 Baso % (Auto) 0.1 Absolute Neuts (auto) 12.1 H Absolute Lymphs (auto) 3.83 Nucleated RBC % 0 D-Dimer Quant (PE/DVT) Sodium 138 Potassium 4.0 Chloride 105 Carbon Dioxide 25.0 Anion Gap 8 BUN 14 Creatinine 0.76 Estim Creat Clear Calc 114.87 Est GFR (MDRD) Af Amer 134 Est GFR (MDRD) Non-Af 111 BUN/Creatinine Ratio 18.3 Glucose 109 H Lactic Acid Calcium 8.0 L Total Bilirubin 0.60 AST 36 ALT 37 Alkaline Phosphatase 85 81 Total Protein 6.1 L Albumin 2.6 L Globulin 3.5 Albumin/Globulin Ratio 0.7 L COVID-19 (CRAIG) - Other Studies Radiology: [] reviewed Other Studies: [] Route of nutrition/ use of supplements: [] Nutritional Intake: [] IV Site: [] [place] Catheter: [] - Physical Exam General: Alert, Oriented x3, Cooperative HEENT: Atraumatic, PERRLA, EOMI Neck: Supple, No Nodes Lungs: Diminished Cardiovascular: Regular rate, Regular Rhythm Abdomen: Soft, Non Tender, Non-Distended Extremities: No edema Skin: No rashes IV Site: Peripheral, without redness Musculoskeletal: No Tenderness to Palpation of Joints or Extremities Neurological: Cranial nerves II-XII grossly intact - Assessment/Plan Antibiotics: [] Assessment/Plan: [] Active and Suspected Problems Hypoxia (Acute) COVID-19 (Acute) Lactic acid acidosis (Acute) Leucocytosis (Acute) Sx started 02/16/20 after attending a wedding. On dex, will change to po. Cont remdesivir. Reviewed EUA of plasma, he does not want to do it. Encouraged those at home to get tested and quarantine. Will follow, thank you.
--- NOTE | 2020-02-27 16:07 | CASEMGMT ---
RN CM Assessment Note Introduced role of CM to patient via phone to room. Patient states he is able to participate in assessment, however becomes short of breath with continued conversation. Demographics, PCP verified. Patient states he is independent @ home. States his was sick a few days ago, however did not get tested. -Patient is hopeful he will not need oxygen on discharge as this would be self pay and he would need to use battery packs at home for electric. Presentation: shortness of breath Diagnosis: COVID 19 PCP: no PCP. List of PCP's in [place] (closer to his home than [place]) given to nurse to give to patient. Insurance: [employer] Preferred Pharmacy: [facility] Prescription Benefit: no LNOK: , Emilie Jorgensen Living Arrangements: Lives independently with his . States no prior care needs Tranportation: [employer] DME: patient states if oxygen needed, no preference on provider. ([facility] will likely be used due to less cost). Patient states he has battery packs and can have electric availability 24 hours/day. Patient DC Goals: Home DC Plan: anticipate home on discharge.Recommend oxygen testing at rest and with ambulation prior to discharge. CM available for discharge planning coordination. Contact CM for any concerns/needs that may arise. Jermaine ESCUDERO RN ACM
[2020-02-27] MEDS: Enoxaparin 40 MG/0.4 ML Syringe SC (19:48)
[2020-02-28 01:47] VITALS: BP 115/72; PULSE 69; RESP 18; TEMP 37.3; O2SAT 94
[2020-02-28 07:19] LABS: Hematocrit 41.9 % (40-54); Hemoglobin 13.5 g/dL (13.0-16.5); Mean Corp Hgb Conc 32.2 g/dL (32-36); Mean Corpuscular Hgb 30.3 pg (27.0-32.0); Mean Corpuscular Volume 93.9 fL (80-94); Mean Platelet Vol. 10.6 fl (6.2-12.0); Platelet Count 403 K/mm3 (150-450); RBC Distribution Width CV 12.3 % (11.6-14.6); RBC Distribution Width SD 42.5 fl (35.1-43.9); Red Blood Count 4.46 M/mm3 (4.6-6.2); White Blood Count 19.3 K/mm3 (4.4-11.0)
--- NOTE | 2020-02-28 07:38 | PN_ITS ---
Patient Problems: Active and Suspected Problems Hypoxia (Acute) COVID-19 (Acute) Lactic acid acidosis (Acute) Leucocytosis (Acute) Subjective: The patient was seen and examined at the bedside this morning. Events from the last 24 hours have been reviewed. The patient is currently afebrile, hemodynamically stable and maintaining appropriate oxygen saturations on 10 L/min via nasal cannula. The patient remains on Decadron, Lovenox and remdesivir. Renal function is stable. The patient did have a mild increase in transaminases this morning. The patient did report some mild improvement in his symptoms. Objective: The patient's most recent lab work, culture data and imaging studies have all been personally reviewed. Coronavirus PCR was positive on February 25. - Physical Exam Vitals/I&O's: Vital Signs Temp Pulse Resp BP Pulse Ox 99.1 F 69 18 115/72 94 02/28/20 01:47 02/28/20 01:47 02/28/20 01:47 02/28/20 01:47 02/28/20 01:47 Oxygen Flow Rate (L/min) 10 Oxygen Delivery Method Nasal Cannula Weight: 216 lb Body Mass Index (BMI) 29.2 Intake and Output for Last 24 Hours 02/26/20 02/27/20 02/28/20 23:59 23:59 23:59 Intake Total 660 / 660 250 / 250 Balance 660 / 660 250 / 250 General: Alert, Cooperative, No apparent distress HEENT: Atraumatic, PERRLA, Normocephalic Oral: No Gingival or Mucosal Lesions/ Ulcerations Neck: Supple, No Nodes, Trachea Midline Lungs: No rhonchi, No wheeze, No rales, Diminished Cardiovascular: Regular rate, Regular Rhythm Abdomen: Bowel Sounds Present, Soft, Non Tender Extremities: No clubbing, No cyanosis, No edema Skin: No breakdown Musculoskeletal: No Tenderness to Palpation of Joints or Extremities Lymphatic: No Cervical, Supraclavicular, or Inguinal Adenopathy Neurological: Cranial nerves II-XII grossly intact, Neuro grossly intact Psych/Mental Status: Flat Affect Labs (Last 48 Hours) 02/26/20 02/26/20 02/26/20 10:50 10:50 10:50 WBC 12.9 H RBC 4.63 Hgb 14.3 Hct 43.0 MCV 92.9 MCH 30.9 MCHC 33.3 RDW Std Deviation 41.1 RDW Coeff of Soumya 11.9 Plt Count 284 MPV 10.4 Immature Gran % (Auto) 0.500 Neut % (Auto) 76.4 H Lymph % (Auto) 20.8 [place] % (Auto) 2.1 Eos % (Auto) 0.0 Baso % (Auto) 0.2 Absolute Neuts (auto) 9.9 H Absolute Lymphs (auto) 2.68 Nucleated RBC % 0 PT 13.5 INR 1.1 APTT 34.6 D-Dimer Quant (PE/DVT) Sodium 139 Potassium 3.5 Chloride 106 Carbon Dioxide 25.0 Anion Gap 8 BUN 13 Creatinine 1.00 Estim Creat Clear Calc 87.30 Est GFR (MDRD) Af Amer 99 Est GFR (MDRD) Non-Af 82 BUN/Creatinine Ratio 13.0 Glucose 113 H Lactic Acid Calcium 8.7 Total Bilirubin 0.70 AST 39 H ALT 41 Alkaline Phosphatase 87 Troponin I < 0.015 Total Protein 7.2 Albumin 2.8 L Globulin 4.4 H Albumin/Globulin Ratio 0.6 L Urine Color Urine Clarity Urine pH Ur Specific [place] Urine Protein Urine Glucose (UA) Urine Ketones Urine Occult Blood Urine Nitrite Urine Bilirubin Urine Urobilinogen Ur Leukocyte Esterase Urine RBC Urine WBC Ur Squamous Epith Cells Urine Bacteria Urine Mucus COVID-19 (CRAIG) 02/26/20 02/26/20 02/26/20 10:50 12:20 12:53 WBC RBC Hgb Hct MCV MCH MCHC RDW Std Deviation RDW Coeff of Soumya Plt Count MPV Immature Gran % (Auto) Neut % (Auto) Lymph % (Auto) [place] % (Auto) Eos % (Auto) Baso % (Auto) Absolute Neuts (auto) Absolute Lymphs (auto) Nucleated RBC % PT INR APTT D-Dimer Quant (PE/DVT) Sodium Potassium Chloride Carbon Dioxide Anion Gap BUN Creatinine Estim Creat Clear Calc Est GFR (MDRD) Af Amer Est GFR (MDRD) Non-Af BUN/Creatinine Ratio Glucose Lactic Acid 2.5 H* Calcium Total Bilirubin AST ALT Alkaline Phosphatase Troponin I Total Protein Albumin Globulin Albumin/Globulin Ratio Urine Color Yellow Urine Clarity Clear Urine pH 6.5 Ur Specific [place] 1.015 Urine Protein 30 H Urine Glucose (UA) Normal Urine Ketones 50 H Urine Occult Blood 10 H Urine Nitrite Negative Urine Bilirubin Negative Urine Urobilinogen 4 H Ur Leukocyte Esterase 25 H Urine RBC 0-5 SEEN Urine WBC 0-5 SEEN Ur Squamous Epith Cells 0 SEEN Urine Bacteria 1+ Urine Mucus 0 SEEN COVID-19 (CRAIG) Positive 02/26/20 02/26/20 02/27/20 16:25 16:25 04:48 WBC 16.4 H RBC 4.43 L Hgb 13.7 Hct 41.0 MCV 92.6 MCH 30.9 MCHC 33.4 RDW Std Deviation 40.9 RDW Coeff of Soumya 11.9 Plt Count 342 MPV 10.3 Immature Gran % (Auto) 0.400 Neut % (Auto) 73.8 H Lymph % (Auto) 23.4 [place] % (Auto) 2.3 Eos % (Auto) 0.0 Baso % (Auto) 0.1 Absolute Neuts (auto) 12.1 H Absolute Lymphs (auto) 3.83 Nucleated RBC % 0 PT INR APTT D-Dimer Quant (PE/DVT) 0.84 H* Sodium Potassium Chloride Carbon Dioxide Anion Gap BUN Creatinine Estim Creat Clear Calc Est GFR (MDRD) Af Amer Est GFR (MDRD) Non-Af BUN/Creatinine Ratio Glucose Lactic Acid 1.3 Calcium Total Bilirubin AST ALT Alkaline Phosphatase Troponin I Total Protein Albumin Globulin Albumin/Globulin Ratio Urine Color Urine Clarity Urine pH Ur Specific [place] Urine Protein Urine Glucose (UA) Urine Ketones Urine Occult Blood Urine Nitrite Urine Bilirubin Urine Urobilinogen Ur Leukocyte Esterase Urine RBC Urine WBC Ur Squamous Epith Cells Urine Bacteria Urine Mucus COVID-19 (CRAIG) 02/27/20 02/27/20 02/28/20 04:48 04:48 05:40 WBC 19.3 H RBC 4.46 L Hgb 13.5 Hct 41.9 MCV 93.9 MCH 30.3 MCHC 32.2 RDW Std Deviation 42.5 RDW Coeff of Soumya 12.3 Plt Count 403 MPV 10.6 Immature Gran % (Auto) Neut % (Auto) Lymph % (Auto) [place] % (Auto) Eos % (Auto) Baso % (Auto) Absolute Neuts (auto) Absolute Lymphs (auto) Nucleated RBC % PT INR APTT D-Dimer Quant (PE/DVT) Sodium 138 Potassium 4.0 Chloride 105 Carbon Dioxide 25.0 Anion Gap 8 BUN 14 Creatinine 0.76 Estim Creat Clear Calc 114.87 Est GFR (MDRD) Af Amer 134 Est GFR (MDRD) Non-Af 111 BUN/Creatinine Ratio 18.3 Glucose 109 H Lactic Acid Calcium 8.0 L Total Bilirubin 0.60 AST 36 ALT 37 Alkaline Phosphatase 85 81 Troponin I Total Protein 6.1 L Albumin 2.6 L Globulin 3.5 Albumin/Globulin Ratio 0.7 L Urine Color Urine Clarity Urine pH Ur Specific [place] Urine Protein Urine Glucose (UA) Urine Ketones Urine Occult Blood Urine Nitrite Urine Bilirubin Urine Urobilinogen Ur Leukocyte Esterase Urine RBC Urine WBC Ur Squamous Epith Cells Urine Bacteria Urine Mucus COVID-19 (CRAIG) 02/28/20 05:40 WBC RBC Hgb Hct MCV MCH MCHC RDW Std Deviation RDW Coeff of Soumya Plt Count MPV Immature Gran % (Auto) Neut % (Auto) Lymph % (Auto) [place] % (Auto) Eos % (Auto) Baso % (Auto) Absolute Neuts (auto) Absolute Lymphs (auto) Nucleated RBC % PT INR APTT D-Dimer Quant (PE/DVT) Sodium Pending Potassium Pending Chloride Pending Carbon Dioxide Pending Anion Gap Pending BUN Pending Creatinine Pending Estim Creat Clear Calc Est GFR (MDRD) Af Amer Pending Est GFR (MDRD) Non-Af Pending BUN/Creatinine Ratio Pending Glucose Pending Lactic Acid Calcium Pending Total Bilirubin Pending AST Pending ALT Pending Alkaline Phosphatase Pending Troponin I Total Protein Pending Albumin Pending Globulin Albumin/Globulin Ratio Urine Color Urine Clarity Urine pH Ur Specific [place] Urine Protein Urine Glucose (UA) Urine Ketones Urine Occult Blood Urine Nitrite Urine Bilirubin Urine Urobilinogen Ur Leukocyte Esterase Urine RBC Urine WBC Ur Squamous Epith Cells Urine Bacteria Urine Mucus COVID-19 (CRAIG) Microbiology 02/26/20 12:20 Urine, Clean Catch Urine Culture - Final Culture exhibits no growth. Clinical Impression(s) from Imaging Studies Chest X-Ray 02/26/20 11:11 IMPRESSION: Worsening bilateral pneumonia. Electronically Signed: Ernst Fuentes MD at 11:43 EST Tel , Service support , Chest CTA 02/26/20 18:50 IMPRESSION: No demonstrated pulmonary embolism or arterial dissection. Bilateral diffuse pulmonary infiltrates. Mild mediastinal adenopathy. Small hiatal hernia. Electronically Signed: Castro Cordon DO at 20:43 EST Tel [phone], Service support , Current Medications Acetaminophen (Acetaminophen 325 Mg Tablet) 650 mg PO Q6H PRN PRN PRN Reason: Pain Score 1-10/Temp > 100.7 F Last Admin: 02/27/20 00:22 Dose: 650 mg Documented by: Al Hydroxide/Mg Hydroxide (Mag Hydrox/Al Hydrox/Simeth 30 Ml Udc) 30 ml PO Q6H PRN PRN PRN Reason: Gastric Burning Dexamethasone (Dexamethasone 4 Mg Tablet) 6 mg PO DAILY [facility] Stop: 03/06/20 10:01 Enoxaparin Sodium (Enoxaparin 40 Mg/0.4 Ml Syringe) 40 mg SC BID JOSE L Last Admin: 02/27/20 19:48 Dose: 40 mg Documented by: Sodium Chloride () 250 mls @ 15 mls/hr IV .[id number] PRN PRN Reason: Saline Flush Sodium Chloride () 250 mls @ 15 mls/hr IV .[id number] PRN PRN Reason: Additional IVPB Infusion Remdesivir 100 mg/ Sodium (Chloride) 250 mls @ 125 mls/hr IV DAILY JOSE L; Protocol Stop: 03/02/20 11:59 Ondansetron HCl (Ondansetron 4 Mg/2 Ml Vial) 4 mg IV Q8H PRN PRN PRN Reason: NAUSEA/VOMITING Psyllium Hydrophilic Mucilloid (Psyllium 1 Packet) 1 packet PO DAILY PRN PRN PRN Reason: Constipation Senna/Docusate Sodium (Senna/Docusate Sodium 1 Tablet) 2 tablet PO BID PRN PRN PRN Reason: Constipation Sodium Chloride (0.9% Saline Lock 10 Ml Syringe) 10 - 40 ml IV UD PRN PRN Reason: SALINE FLUSH Last Admin: 02/27/20 09:10 Dose: 10 ml Documented by: Medical Necessity - Tobacco Use Smoking Status: Former smoker Tobacco Use: Non-smoker Assessment/Plan All Active Problems Hypoxia (Acute) COVID-19 (Acute) Lactic acid acidosis (Acute) Leucocytosis (Acute) RECOMMENDATIONS: 1. Continue remdesivir. Monitor liver and renal function accordingly. 2. Wean supplemental oxygen to maintain saturations at or above 90%. 3. Continue Decadron 6 mg daily x10 days. 4. Continue Lovenox as ordered. 5. Encourage incentive spirometer use and mobilize patient as tolerated. IMPRESSIONS: 1. Acute hypoxemic respiratory failure secondary to COVID-19 pneumonia Plan to continue current supportive measures with supplemental oxygen to maintain saturations at or above 90%. Liver and renal function are within normal limits. The patient will be continued on remdesivir and Decadron 6 mg/day. Continue Lovenox for DVT prophylaxis as ordered. Encourage incentive spirometer use and mobilize patient as tolerated. This note was generated with [email or web address] dictation software. It may contain incorrect words, spelling, and punctuation that were not noted in checking the note before signing. Inpatient E&M: 53920 Subs Hosp L2
[2020-02-28 08:01] LABS: ALB/GLOB Ratio 0.6 RATIO (0.9-2.4); AST(SGOT) 69 U/L (15-37); Alanine Aminotransfer ALT/SGPT 74 U/L (16-61); Albumin, Serum 2.4 g/dL (3.2-5.0); Alkaline Phosphatase 93 U/L (45-117); Anion Gap 7 (5-15); BUN 20 mg/dL (7-18); Calcium,Total 8.3 mg/dL (8.5-10.1); Chloride 104 mmol/L (98-107); Creatinine, Serum 0.91 mg/dL (0.70-1.30); EST Glomerular Filtration Rate 91 mL/min (>60); Est Glom Filt Rate - Afr Amer 110 mL/min (>60); Estimated Creatinine Clearance 95.93 ml/min; Globulin 4.3 g/dL (2.2-4.2); Glucose 96 mg/dL (74-106); Potassium 4.4 mmol/L (3.5-5.1); Protein, Total 6.7 g/dL (6.4-8.2); Sodium Level 138 mmol/L (136-145)
[2020-02-28 10:14] VITALS: BP 129/77; PULSE 69; RESP 18; TEMP 36.6; O2SAT 92
[2020-02-28 10:15] VITALS: RESP 18
[2020-02-28] MEDS: dexAMETHasone 4 MG Tablet 6 MG PO (10:22)
[2020-02-28] MEDS: Enoxaparin 40 MG/0.4 ML Syringe SC ×2 (10:22→20:04)
--- NOTE | 2020-02-28 11:22 | PN.ID_ITS ---
Patient Problems: Active and Suspected Problems Hypoxia (Acute) COVID-19 (Acute) Lactic acid acidosis (Acute) Leucocytosis (Acute) Subjective: Feeling better, no fever, no n/v/d. - Physical Exam Vitals/I&O's: Vital Signs Temp Pulse Resp BP Pulse Ox 97.8 F 69 18 129/77 H 92 02/28/20 10:14 02/28/20 10:14 02/28/20 10:14 02/28/20 10:14 02/28/20 10:14 Oxygen Flow Rate (L/min) 10 Oxygen Delivery Method Nasal Cannula Weight: 97.976 kg Body Mass Index (BMI) 29.2 Intake and Output for Last 24 Hours 02/26/20 02/27/20 02/28/20 23:59 23:59 23:59 Intake Total 660 / 660 250 / 250 Balance 660 / 660 250 / 250 General: Alert, Cooperative, No apparent distress Lungs: Diminished Cardiovascular: Regular rate, Regular Rhythm Abdomen: Soft, Non Tender, Non-Distended Skin: No rashes Microbiology Past 72 Hours 02/26/20 10:50 Blood Culture (Wb) - Anticubital Left Blood Culture - Preliminary No growth in 48 hours. 02/26/20 10:50 Blood Culture (Wb) - Left Hand Blood Culture - Preliminary No growth in 48 hours. 02/26/20 12:20 Urine, Clean Catch Urine Culture - Final Culture exhibits no growth. Laboratory Results 02/28/20 05:40: WBC 19.3 H, RBC 4.46 L, Hgb 13.5, Hct 41.9, MCV 93.9, MCH 30.3, MCHC 32.2, RDW Std Deviation 42.5, RDW Coeff of Soumya 12.3, Plt Count 403, MPV 10.6 02/28/20 05:40: Sodium 138, Potassium 4.4, Chloride 104, Carbon Dioxide 27.0, Anion Gap 7, BUN 20 H, Creatinine 0.91, Estim Creat Clear Calc 95.93, Est GFR (MDRD) Af Amer 110, Est GFR (MDRD) Non-Af 91, BUN/Creatinine Ratio 22.0 H, Glucose 96, Calcium 8.3 L, Total Bilirubin 0.50, AST 69 H, ALT 74 H, Alkaline Phosphatase 93, Total Protein 6.7, Albumin 2.4 L, Globulin 4.3 H, Albumin/Globulin Ratio 0.6 L Current Medications Acetaminophen (Acetaminophen 325 Mg Tablet) 650 mg PO Q6H PRN PRN PRN Reason: Pain Score 1-10/Temp > 100.7 F Last Admin: 02/27/20 00:22 Dose: 650 mg Documented by: Al Hydroxide/Mg Hydroxide (Mag Hydrox/Al Hydrox/Simeth 30 Ml Udc) 30 ml PO Q6H PRN PRN PRN Reason: Gastric Burning Dexamethasone (Dexamethasone 4 Mg Tablet) 6 mg PO DAILY [facility] Stop: 03/06/20 10:01 Last Admin: 02/28/20 10:22 Dose: 6 mg Documented by: Enoxaparin Sodium (Enoxaparin 40 Mg/0.4 Ml Syringe) 40 mg SC BID [facility] Last Admin: 02/28/20 10:22 Dose: 40 mg Documented by: Sodium Chloride () 250 mls @ 15 mls/hr IV .[id number] PRN PRN Reason: Saline Flush Sodium Chloride () 250 mls @ 15 mls/hr IV .[id number] PRN PRN Reason: Additional IVPB Infusion Remdesivir 100 mg/ Sodium (Chloride) 250 mls @ 125 mls/hr IV DAILY [facility]; Protocol Stop: 03/02/20 11:59 Last Admin: 02/28/20 10:22 Dose: 125 mls/hr Documented by: Ondansetron HCl (Ondansetron 4 Mg/2 Ml Vial) 4 mg IV Q8H PRN PRN PRN Reason: NAUSEA/VOMITING Psyllium Hydrophilic Mucilloid (Psyllium 1 Packet) 1 packet PO DAILY PRN PRN PRN Reason: Constipation Senna/Docusate Sodium (Senna/Docusate Sodium 1 Tablet) 2 tablet PO BID PRN PRN PRN Reason: Constipation Sodium Chloride (0.9% Saline Lock 10 Ml Syringe) 10 - 40 ml IV UD PRN PRN Reason: SALINE FLUSH Last Admin: 02/27/20 09:10 Dose: 10 ml Documented by: Medical Necessity - Tobacco Use Smoking Status: Former smoker Tobacco Use: Non-smoker Route of nutrition/ use of supplements: [] Nutritional Intake: [] IV Site: [] [place]ckett Catheter: [] - Assessment/Plan Antibiotics: [] Assessment/Plan: [] Active and Suspected Problems Hypoxia (Acute) COVID-19 (Acute) Lactic acid acidosis (Acute) Leucocytosis (Acute) Sx started 02/16/20 after attending a wedding. On dex po. Cont remdesivir. O2 increased today. Will follow
--- NOTE | 2020-02-28 11:25 | PCM.PN.HOSP ---
Patient Problems: Active and Suspected Problems Hypoxia (Acute) COVID-19 (Acute) Lactic acid acidosis (Acute) Leucocytosis (Acute) Reason for Visit: Follow-up for COVID-19 pneumonia. On remdesivir Objective: No fever or chills. Heart rate and blood pressure is good. Patient on 10 L of oxygen pulse ox 94%. Denies nausea, vomiting. Cough with minimal sputum. Physical exam General: Alert, Oriented x3, Cooperative HEENT: Atraumatic, PERRLA, EOMI, Normocephalic Oral: No Gingival or Mucosal Lesions/ Ulcerations Neck: Supple, No JVD, Negative Carotid Bruits Lungs: Air entry diminished in bilateral lung bases. No crepitation/rhonchi. Severe hypoxemia Cardiovascular: Regular rate, Regular Rhythm, Normal S1, Normal S2, No murmurs Abdomen: Bowel Sounds Present, Soft, Non Tender, Non-Distended : No renal angle tenderness. No suprapubic tenderness. Extremities: No edema, Capillary Refill Less than 3 Seconds Skin: No rashes, No breakdown Musculoskeletal: No Tenderness to Palpation of Joints or Extremities Neurological: Cranial nerves II-XII grossly intact, Deep Tendon Reflexes 2+/4 and Symmetrical, Neuro grossly intact Psych/Mental Status: Normal Affect, Appropriate. Vitals/I&O's: Vital Signs Temp Pulse Resp BP Pulse Ox 97.8 F 69 18 129/77 H 92 02/28/20 10:14 02/28/20 10:14 02/28/20 10:14 02/28/20 10:14 02/28/20 10:14 Oxygen Flow Rate (L/min) 10 Oxygen Delivery Method Nasal Cannula Weight: 216 lb Body Mass Index (BMI) 29.2 Intake and Output for Last 24 Hours 02/26/20 02/27/20 02/28/20 23:59 23:59 23:59 Intake Total 660 / 660 250 / 250 Balance 660 / 660 250 / 250 Microbiology Past 72 Hours 02/26/20 10:50 Blood Culture (Wb) - Anticubital Left Blood Culture - Preliminary No growth in 48 hours. 02/26/20 10:50 Blood Culture (Wb) - Left Hand Blood Culture - Preliminary No growth in 48 hours. 02/26/20 12:20 Urine, Clean Catch Urine Culture - Final Culture exhibits no growth. Laboratory Results 02/28/20 05:40: WBC 19.3 H, RBC 4.46 L, Hgb 13.5, Hct 41.9, MCV 93.9, MCH 30.3, MCHC 32.2, RDW Std Deviation 42.5, RDW Coeff of Soumya 12.3, Plt Count 403, MPV 10.6 02/28/20 05:40: Sodium 138, Potassium 4.4, Chloride 104, Carbon Dioxide 27.0, Anion Gap 7, BUN 20 H, Creatinine 0.91, Estim Creat Clear Calc 95.93, Est GFR (MDRD) Af Amer 110, Est GFR (MDRD) Non-Af 91, BUN/Creatinine Ratio 22.0 H, Glucose 96, Calcium 8.3 L, Total Bilirubin 0.50, AST 69 H, ALT 74 H, Alkaline Phosphatase 93, Total Protein 6.7, Albumin 2.4 L, Globulin 4.3 H, Albumin/Globulin Ratio 0.6 L Current Medications Acetaminophen (Acetaminophen 325 Mg Tablet) 650 mg PO Q6H PRN PRN PRN Reason: Pain Score 1-10/Temp > 100.7 F Last Admin: 02/27/20 00:22 Dose: 650 mg Documented by: Al Hydroxide/Mg Hydroxide (Mag Hydrox/Al Hydrox/Simeth 30 Ml Udc) 30 ml PO Q6H PRN PRN PRN Reason: Gastric Burning Dexamethasone (Dexamethasone 4 Mg Tablet) 6 mg PO DAILY [facility] Stop: 03/06/20 10:01 Last Admin: 02/28/20 10:22 Dose: 6 mg Documented by: Enoxaparin Sodium (Enoxaparin 40 Mg/0.4 Ml Syringe) 40 mg SC BID REPL[facility]ED BY [facility] Last Admin: 02/28/20 10:22 Dose: 40 mg Documented by: Sodium Chloride () 250 mls @ 15 mls/hr IV .[id number] PRN PRN Reason: Saline Flush Sodium Chloride () 250 mls @ 15 mls/hr IV .[id number] PRN PRN Reason: Additional IVPB Infusion Remdesivir 100 mg/ Sodium (Chloride) 250 mls @ 125 mls/hr IV DAILY [facility]PL[facility]; Protocol Stop: 03/02/20 11:59 Last Admin: 02/28/20 10:22 Dose: 125 mls/hr Documented by: Ondansetron HCl (Ondansetron 4 Mg/2 Ml Vial) 4 mg IV Q8H PRN PRN PRN Reason: NAUSEA/VOMITING Psyllium Hydrophilic Mucilloid (Psyllium 1 Packet) 1 packet PO DAILY PRN PRN PRN Reason: Constipation Senna/Docusate Sodium (Senna/Docusate Sodium 1 Tablet) 2 tablet PO BID PRN PRN PRN Reason: Constipation Sodium Chloride (0.9% Saline Lock 10 Ml Syringe) 10 - 40 ml IV UD PRN PRN Reason: SALINE FLUSH Last Admin: 02/27/20 09:10 Dose: 10 ml Documented by: STROKE Vital Signs/Narrative: Vital Signs Temp Pulse Resp BP Pulse Ox 02/28/20 10:14 97.8 F 69 18 129/77 H 92 Medical Necessity - Tobacco Use Smoking Status: Former smoker Tobacco Use: Non-smoker Assessment/Plan All Active Problems Hypoxia (Acute) COVID-19 (Acute) Lactic acid acidosis (Acute) Leucocytosis (Acute) 1. Acute hypoxic respiratory failure secondary to acute COVID-19 infection: Patient is still on 5 L of oxygen. On IV remdesivir. Stop date on 03/02/2020. Continue with breathing treatments, IV steroids, encourage use of incentive spirometer. PEP. Wean off oxygen for SPO2 more than 94%. D-dimer elevated 0.84. On Lovenox 30 mg subcu twice daily 02/27: Remdesivir is started on 02/26. On Decadron. Leukocytosis, but lymphocyte normal 23.4% 2. Acute COVID-19 with hypoxia, Keep pulse ox about 90 to 94% 3. Lactic acidosis secondary to hypoxia 4. DVT PPx- Lovenox SC Clinical Impression(s) from Imaging Studies Chest X-Ray 02/26/20 11:11 IMPRESSION: Worsening bilateral pneumonia. Chest CTA 02/26/20 18:50 IMPRESSION: No demonstrated pulmonary embolism or arterial dissection. Bilateral diffuse pulmonary infiltrates. Mild mediastinal adenopathy. Small hiatal hernia. Laboratory Results 02/26/20 12:20: Urine RBC 0-5 SEEN, Urine WBC 0-5 SEEN, Ur Squamous Epith Cells 0 SEEN, Urine Bacteria 1+, Urine Mucus 0 SEEN 02/26/20 12:53: COVID-19 (CRAIG) Positive 02/26/20 16:25: Lactic Acid 1.3 02/26/20 16:25: D-Dimer Quant (PE/DVT) 0.84 H* 02/27/20 04:48: WBC 16.4 H, RBC 4.43 L, Hgb 13.7, Hct 41.0, MCV 92.6, MCH 30.9, MCHC 33.4, RDW Std Deviation 40.9, RDW Coeff of Soumya 11.9, Plt Count 342, MPV 10.3, Immature Gran % (Auto) 0.400, Neut % (Auto) 73.8 H, Lymph % (Auto) 23.4, [place] % (Auto) 2.3, Eos % (Auto) 0.0, Baso % (Auto) 0.1, Absolute Neuts (auto) 12.1 H, Absolute Lymphs (auto) 3.83, Nucleated RBC % 0 02/27/20 04:48: Sodium 138, Potassium 4.0, Chloride 105, Carbon Dioxide 25.0, Anion Gap 8, BUN 14, Creatinine 0.76, Estim Creat Clear Calc 114.87, Est GFR (MDRD) Af Amer 134, Est GFR (MDRD) Non-Af 111, BUN/Creatinine Ratio 18.3, Glucose 109 H, Calcium 8.0 L, Total Bilirubin 0.60, AST 36, ALT 37, Alkaline Phosphatase 85, Total Protein 6.1 L, Albumin 2.6 L, Globulin 3.5, Albumin/Globulin Ratio 0.7 L 02/27/20 04:48: Alkaline Phosphatase 81 Inpatient E&M: 71002 Subs Hosp L2
[2020-02-28 13:48] VITALS: BP 124/77; PULSE 68; RESP 20; TEMP 36.6; O2SAT 92
[2020-02-28 13:59] VITALS: O2SAT 92
[2020-02-28 19:58] VITALS: BP 129/76; PULSE 70; RESP 20; TEMP 37; O2SAT 93
[2020-02-29] VITALS (8 sets, daily range): BP systolic 111–130; BP diastolic 69–75; PULSE 63–73; RESP 18–20; TEMP 35.8–36.7; O2SAT 88–92
[2020-02-29 06:11] LABS: Hematocrit 42.5 % (40-54); Hemoglobin 13.7 g/dL (13.0-16.5); Mean Corp Hgb Conc 32.2 g/dL (32-36); Mean Corpuscular Hgb 30.3 pg (27.0-32.0); Mean Platelet Vol. 10.2 fl (6.2-12.0); Platelet Count 446 K/mm3 (150-450); RBC Distribution Width CV 12.3 % (11.6-14.6); RBC Distribution Width SD 42.3 fl (35.1-43.9); Red Blood Count 4.52 M/mm3 (4.6-6.2); White Blood Count 18.9 K/mm3 (4.4-11.0)
[2020-02-29 06:54] LABS: ALB/GLOB Ratio 0.7 RATIO (0.9-2.4); AST(SGOT) 47 U/L (15-37); Alanine Aminotransfer ALT/SGPT 72 U/L (16-61); Albumin, Serum 2.5 g/dL (3.2-5.0); Alkaline Phosphatase 83 U/L (45-117); Anion Gap 8 (5-15); BUN 20 mg/dL (7-18); BUN/Creat Ratio 28.2 RATIO (10-20); Calcium,Total 8.4 mg/dL (8.5-10.1); Chloride 106 mmol/L (98-107); Creatinine, Serum 0.71 mg/dL (0.70-1.30); EST Glomerular Filtration Rate 121 mL/min (>60); Est Glom Filt Rate - Afr Amer 146 mL/min (>60); Estimated Creatinine Clearance 122.96 ml/min; Globulin 3.4 g/dL (2.2-4.2); Glucose 89 mg/dL (74-106); Potassium 4.6 mmol/L (3.5-5.1); Protein, Total 5.9 g/dL (6.4-8.2); Sodium Level 139 mmol/L (136-145)
[2020-02-29] MEDS: dexAMETHasone 4 MG Tablet 6 MG PO (08:36)
[2020-02-29] MEDS: Enoxaparin 40 MG/0.4 ML Syringe SC ×2 (08:36→20:16)
[2020-02-29] MEDS: 0.9% Saline Lock 10 ML Syringe IV ×2 (10:05→20:16)
--- NOTE | 2020-02-29 10:06 | PN_ITS ---
Patient Problems: Active and Suspected Problems Hypoxia (Acute) COVID-19 (Acute) Lactic acid acidosis (Acute) Leucocytosis (Acute) Subjective: The patient was seen and examined at the bedside this morning. Events from the last 24 hours have been reviewed. The patient is currently afebrile, hemodynamically stable and maintaining appropriate oxygen saturations on 11 L/min via nasal cannula. The patient remains on Decadron, Lovenox and remdesivir. Renal and liver function are stable. Objective: The patient's most recent lab work, culture data and imaging studies have all been personally reviewed. Coronavirus PCR was positive on February 25. - Physical Exam Vitals/I&O's: Vital Signs Temp Pulse Resp BP Pulse Ox 98.1 F 73 18 111/69 92 02/29/20 08:18 02/29/20 08:18 02/29/20 08:18 02/29/20 08:18 02/29/20 08:18 Oxygen Flow Rate (L/min) 11 Oxygen Delivery Method Nasal Cannula Weight: 216 lb Body Mass Index (BMI) 29.2 Intake and Output for Last 24 Hours 02/27/20 02/28/20 02/29/20 23:59 23:59 23:59 Intake Total 250 / 250 250 / 350 200 / 200 Balance 250 / 250 250 / 350 200 / 200 General: Alert, Cooperative, No apparent distress HEENT: Atraumatic, Normocephalic Oral: Moist Mucosa, No Gingival or Mucosal Lesions/ Ulcerations Neck: Supple, No Nodes, Trachea Midline Lungs: No rhonchi, No wheeze, No rales, Diminished, Tachypneic Cardiovascular: Regular rate, Regular Rhythm Abdomen: Bowel Sounds Present, Soft, Non Tender Extremities: No clubbing, No cyanosis, No edema Skin: No breakdown Musculoskeletal: No Tenderness to Palpation of Joints or Extremities Lymphatic: No Cervical, Supraclavicular, or Inguinal Adenopathy Neurological: Cranial nerves II-XII grossly intact, Neuro grossly intact Psych/Mental Status: Alert and oriented to time, place, person, mood and affect Labs (Last 48 Hours) 02/28/20 02/28/20 02/29/20 05:40 05:40 05:24 WBC 19.3 H 18.9 H RBC 4.46 L 4.52 L Hgb 13.5 13.7 Hct 41.9 42.5 MCV 93.9 94.0 MCH 30.3 30.3 MCHC 32.2 32.2 RDW Std Deviation 42.5 42.3 RDW Coeff of Soumya 12.3 12.3 Plt Count 403 446 MPV 10.6 10.2 Sodium 138 Potassium 4.4 Chloride 104 Carbon Dioxide 27.0 Anion Gap 7 BUN 20 H Creatinine 0.91 Estim Creat Clear Calc 95.93 Est GFR (MDRD) Af Amer 110 Est GFR (MDRD) Non-Af 91 BUN/Creatinine Ratio 22.0 H Glucose 96 Calcium 8.3 L Total Bilirubin 0.50 AST 69 H ALT 74 H Alkaline Phosphatase 93 Total Protein 6.7 Albumin 2.4 L Globulin 4.3 H Albumin/Globulin Ratio 0.6 L 02/29/20 05:24 WBC RBC Hgb Hct MCV MCH MCHC RDW Std Deviation RDW Coeff of Soumya Plt Count MPV Sodium 139 Potassium 4.6 Chloride 106 Carbon Dioxide 25.0 Anion Gap 8 BUN 20 H Creatinine 0.71 Estim Creat Clear Calc 122.96 Est GFR (MDRD) Af Amer 146 Est GFR (MDRD) Non-Af 121 BUN/Creatinine Ratio 28.2 H Glucose 89 Calcium 8.4 L Total Bilirubin 0.50 AST 47 H ALT 72 H Alkaline Phosphatase 83 Total Protein 5.9 L Albumin 2.5 L Globulin 3.4 Albumin/Globulin Ratio 0.7 L Microbiology 02/26/20 10:50 Blood Culture (Wb) - Anticubital Left Blood Culture - Preliminary No growth in 48 hours. 02/26/20 10:50 Blood Culture (Wb) - Left Hand Blood Culture - Preliminary No growth in 48 hours. 02/26/20 12:20 Urine, Clean Catch Urine Culture - Final Culture exhibits no growth. Clinical Impression(s) from Imaging Studies Chest X-Ray 02/26/20 11:11 IMPRESSION: Worsening bilateral pneumonia. Electronically Signed: Ernst Fuentes MD at 11:43 EST Tel , Service support , Chest CTA 02/26/20 18:50 IMPRESSION: No demonstrated pulmonary embolism or arterial dissection. Bilateral diffuse pulmonary infiltrates. Mild mediastinal adenopathy. Small hiatal hernia. Electronically Signed: Castro Cordon DO at 20:43 EST Tel [phone], Service support , Current Medications Acetaminophen (Acetaminophen 325 Mg Tablet) 650 mg PO Q6H PRN PRN PRN Reason: Pain Score 1-10/Temp > 100.7 F Last Admin: 02/27/20 00:22 Dose: 650 mg Documented by: Al Hydroxide/Mg Hydroxide (Mag Hydrox/Al Hydrox/Simeth 30 Ml Udc) 30 ml PO Q6H PRN PRN PRN Reason: Gastric Burning Dexamethasone (Dexamethasone 4 Mg Tablet) 6 mg PO DAILY [facility] Stop: 03/06/20 10:01 Last Admin: 02/29/20 08:36 Dose: 6 mg Documented by: Enoxaparin Sodium (Enoxaparin 40 Mg/0.4 Ml Syringe) 40 mg SC BID [facility] Last Admin: 02/29/20 08:36 Dose: 40 mg Documented by: Sodium Chloride () 250 mls @ 15 mls/hr IV .[id number] PRN PRN Reason: Saline Flush Sodium Chloride () 250 mls @ 15 mls/hr IV .[id number] PRN PRN Reason: Additional IVPB Infusion Remdesivir 100 mg/ Sodium (Chloride) 250 mls @ 125 mls/hr IV DAILY [facility]; Protocol Stop: 03/02/20 11:59 Last Admin: 02/29/20 10:04 Dose: 125 mls/hr Documented by: Ondansetron HCl (Ondansetron 4 Mg/2 Ml Vial) 4 mg IV Q8H PRN PRN PRN Reason: NAUSEA/VOMITING Psyllium Hydrophilic Mucilloid (Psyllium 1 Packet) 1 packet PO DAILY PRN PRN PRN Reason: Constipation Senna/Docusate Sodium (Senna/Docusate Sodium 1 Tablet) 2 tablet PO BID PRN PRN PRN Reason: Constipation Sodium Chloride (0.9% Saline Lock 10 Ml Syringe) 10 - 40 ml IV UD PRN PRN Reason: SALINE FLUSH Last Admin: 02/29/20 10:05 Dose: 10 ml Documented by: Medical Necessity - Tobacco Use Smoking Status: Former smoker Tobacco Use: Non-smoker Assessment/Plan All Active Problems Hypoxia (Acute) COVID-19 (Acute) Lactic acid acidosis (Acute) Leucocytosis (Acute) RECOMMENDATIONS: 1. Continue remdesivir. Monitor liver and renal function accordingly. 2. Wean supplemental oxygen to maintain saturations at or above 90%. 3. Continue Decadron 6 mg daily x10 days. 4. Continue Lovenox as ordered. 5. Encourage incentive spirometer use and mobilize patient as tolerated. IMPRESSIONS: 1. Acute hypoxemic respiratory failure secondary to COVID-19 pneumonia Plan to continue current supportive measures with supplemental oxygen to maintain saturations at or above 90%. Liver and renal function are within normal limits. The patient will be continued on remdesivir and Decadron 6 mg/day. Continue Lovenox for DVT prophylaxis as ordered. Encourage incentive spirometer use and mobilize patient as tolerated. This note was generated with [employer] dictation software. It may contain incorrect words, spelling, and punctuation that were not noted in checking the note before signing. Inpatient E&M: [id number] Subs Hosp L2
--- NOTE | 2020-02-29 10:58 | PN_ITS ---
Patient Problems: Active and Suspected Problems Hypoxia (Acute) COVID-19 (Acute) Lactic acid acidosis (Acute) Leucocytosis (Acute) Reason for Visit: Follow-up for COVID-19 bilateral pneumonia. Objective: No fever or chills. Patient on 10 to 11 L of oxygen. Mild tachypnea, respiratory rate 20/min. Patient is still has cough but denies worsening of shortness of breath. Physical exam General: Alert, Oriented x3, Cooperative HEENT: Atraumatic, PERRLA, EOMI, Normocephalic Oral: No Gingival or Mucosal Lesions/ Ulcerations Neck: Supple, No JVD, Negative Carotid Bruits Lungs: Air entry diminished in bilateral lung bases. Mild bilateral expiratory rhonchi. On high flow oxygen Cardiovascular: Regular rate, Regular Rhythm, Normal S1, Normal S2, No murmurs Abdomen: Bowel Sounds Present, Soft, Non Tender, Non-Distended : No renal angle tenderness. No suprapubic tenderness. Extremities: No edema, Capillary Refill Less than 3 Seconds Skin: No rashes, No breakdown Musculoskeletal: No Tenderness to Palpation of Joints or Extremities Neurological: Cranial nerves II-XII grossly intact, Deep Tendon Reflexes 2+/4 and Symmetrical, Neuro grossly intact Psych/Mental Status: Normal Affect, Appropriate. Vitals/I&O's: Vital Signs Temp Pulse Resp BP Pulse Ox 98.1 F 73 18 111/69 92 02/29/20 08:18 02/29/20 08:18 02/29/20 08:18 02/29/20 08:18 02/29/20 08:18 Oxygen Flow Rate (L/min) 11 Oxygen Delivery Method Nasal Cannula Weight: 216 lb Body Mass Index (BMI) 29.2 Intake and Output for Last 24 Hours 02/27/20 02/28/20 02/29/20 23:59 23:59 23:59 Intake Total 250 / 250 250 / 350 200 / 200 Balance 250 / 250 250 / 350 200 / 200 Microbiology Past 72 Hours 02/26/20 10:50 Blood Culture (Wb) - Anticubital Left Blood Culture - Preliminary No growth in 48 hours. 02/26/20 10:50 Blood Culture (Wb) - Left Hand Blood Culture - Preliminary No growth in 48 hours. 02/26/20 12:20 Urine, Clean Catch Urine Culture - Final Culture exhibits no growth. Laboratory Results 02/29/20 05:24: WBC 18.9 H, RBC 4.52 L, Hgb 13.7, Hct 42.5, MCV 94.0, MCH 30.3, MCHC 32.2, RDW Std Deviation 42.3, RDW Coeff of Soumya 12.3, Plt Count 446, MPV 10.2 02/29/20 05:24: Sodium 139, Potassium 4.6, Chloride 106, Carbon Dioxide 25.0, Anion Gap 8, BUN 20 H, Creatinine 0.71, Estim Creat Clear Calc 122.96, Est GFR (MDRD) Af Amer 146, Est GFR (MDRD) Non-Af 121, BUN/Creatinine Ratio 28.2 H, Glucose 89, Calcium 8.4 L, Total Bilirubin 0.50, AST 47 H, ALT 72 H, Alkaline Phosphatase 83, Total Protein 5.9 L, Albumin 2.5 L, Globulin 3.4, Albumin/Globulin Ratio 0.7 L Current Medications Acetaminophen (Acetaminophen 325 Mg Tablet) 650 mg PO Q6H PRN PRN PRN Reason: Pain Score 1-10/Temp > 100.7 F Last Admin: 02/27/20 00:22 Dose: 650 mg Documented by: Al Hydroxide/Mg Hydroxide (Mag Hydrox/Al Hydrox/Simeth 30 Ml Udc) 30 ml PO Q6H PRN PRN PRN Reason: Gastric Burning Dexamethasone (Dexamethasone 4 Mg Tablet) 6 mg PO DAILY [facility] Stop: 03/06/20 10:01 Last Admin: 02/29/20 08:36 Dose: 6 mg Documented by: Enoxaparin Sodium (Enoxaparin 40 Mg/0.4 Ml Syringe) 40 mg SC BID [facility] Last Admin: 02/29/20 08:36 Dose: 40 mg Documented by: Sodium Chloride () 250 mls @ 15 mls/hr IV .[id number] PRN PRN Reason: Saline Flush Sodium Chloride () 250 mls @ 15 mls/hr IV .[id number] PRN PRN Reason: Additional IVPB Infusion Remdesivir 100 mg/ Sodium (Chloride) 250 mls @ 125 mls/hr IV DAILY [facility]; Protocol Stop: 03/02/20 11:59 Last Admin: 02/29/20 10:04 Dose: 125 mls/hr Documented by: Ondansetron HCl (Ondansetron 4 Mg/2 Ml Vial) 4 mg IV Q8H PRN PRN PRN Reason: NAUSEA/VOMITING Psyllium Hydrophilic Mucilloid (Psyllium 1 Packet) 1 packet PO DAILY PRN PRN PRN Reason: Constipation Senna/Docusate Sodium (Senna/Docusate Sodium 1 Tablet) 2 tablet PO BID PRN PRN PRN Reason: Constipation Sodium Chloride (0.9% Saline Lock 10 Ml Syringe) 10 - 40 ml IV UD PRN PRN Reason: SALINE FLUSH Last Admin: 02/29/20 10:05 Dose: 10 ml Documented by: STROKE Vital Signs/Narrative: Vital Signs Temp Pulse Resp BP Pulse Ox 02/29/20 08:18 98.1 F 73 18 111/69 92 02/29/20 08:15 92 Medical Necessity - Tobacco Use Smoking Status: Former smoker Tobacco Use: Non-smoker Assessment/Plan All Active Problems Hypoxia (Acute) COVID-19 (Acute) Lactic acid acidosis (Acute) Leucocytosis (Acute) 1. Acute hypoxic respiratory failure secondary to acute COVID-19 infection: Patient is still on 5 L of oxygen. On IV remdesivir. Stop date on 03/02/2020. Continue with breathing treatments, IV steroids, encourage use of incentive spirometer. PEP. Wean off oxygen for SPO2 more than 94%. D-dimer elevated 0.84. On Lovenox 30 mg subcu twice daily 02/27: Remdesivir is started on 02/26. On Decadron. Leukocytosis, but lymphocyte normal 23.4% 02/28: Continue remdesivir. Patient on 10 to 11 L of oxygen. Leukocytosis 19,000. Thrombocytosis 146,000 secondary to acute COVID-19 pneumonia. Mild elevated ALT and AST probably secondary to acute COVID-19 infection or DILI from remdesivir. 2. Acute COVID-19 with hypoxia, Keep pulse ox about 90 to 94% 3. Lactic acidosis secondary to hypoxia 4. DVT PPx- Lovenox SC Microbiology Past 72 Hours 02/26/20 10:50 Blood Culture (Wb) - Anticubital Left Blood Culture - Pre liminary No growth in 48 hours. 02/26/20 10:50 Blood Culture (Wb) - Left Hand Blood Culture - Preliminary No growth in 48 hours. 02/26/20 12:20 Urine, Clean Catch Urine Culture - Final Culture exhibits no growth. Laboratory Results 02/29/20 05:24: WBC 18.9 H, RBC 4.52 L, Hgb 13.7, Hct 42.5, MCV 94.0, MCH 30.3, MCHC 32.2, RDW Std Deviation 42.3, RDW Coeff of Soumya 12.3, Plt Count 446, MPV 10.2 02/29/20 05:24: Sodium 139, Potassium 4.6, Chloride 106, Carbon Dioxide 25.0, Anion Gap 8, BUN 20 H, Creatinine 0.71, Estim Creat Clear Calc 122.96, Est GFR (MDRD) Af Amer 146, Est GFR (MDRD) Non-Af 121, BUN/Creatinine Ratio 28.2 H, Glucose 89, Calcium 8.4 L, Total Bilirubin 0.50, AST 47 H, ALT 72 H, Alkaline Phosphatase 83, Total Protein 5.9 L, Albumin 2.5 L, Globulin 3.4, Albumin/Globulin Ratio 0.7 L Active Medications Acetaminophen (Acetaminophen 325 Mg Tablet) 650 mg PO Q6H PRN PRN PRN Reason: Pain Score 1-10/Temp > 100.7 F Last Admin: 02/27/20 00:22 Dose: 650 mg Documented by: Al Hydroxide/Mg Hydroxide (Mag Hydrox/Al Hydrox/Simeth 30 Ml Udc) 30 ml PO Q6H PRN PRN PRN Reason: Gastric Burning Dexamethasone (Dexamethasone 4 Mg Tablet) 6 mg PO DAILY [facility] Stop: 03/06/20 10:01 Last Admin: 02/29/20 08:36 Dose: 6 mg Documented by: Enoxaparin Sodium (Enoxaparin 40 Mg/0.4 Ml Syringe) 40 mg SC BID [facility] Last Admin: 02/29/20 08:36 Dose: 40 mg Documented by: Sodium Chloride () 250 mls @ 15 mls/hr IV .[id number] PRN PRN Reason: Saline Flush Sodium Chloride () 250 mls @ 15 mls/hr IV .[id number] PRN PRN Reason: Additional IVPB Infusion Remdesivir 100 mg/ Sodium (Chloride) 250 mls @ 125 mls/hr IV DAILY [facility]; Protocol Stop: 03/02/20 11:59 Last Admin: 02/29/20 10:04 Dose: 125 mls/hr Documented by: Ondansetron HCl (Ondansetron 4 Mg/2 Ml Vial) 4 mg IV Q8H PRN PRN PRN Reason: NAUSEA/VOMITING Psyllium Hydrophilic Mucilloid (Psyllium 1 Packet) 1 packet PO DAILY PRN PRN PRN Reason: Constipation Senna/Docusate Sodium (Senna/Docusate Sodium 1 Tablet) 2 tablet PO BID PRN PRN PRN Reason: Constipation Sodium Chloride (0.9% Saline Lock 10 Ml Syringe) 10 - 40 ml IV UD PRN PRN Reason: SALINE FLUSH Last Admin: 02/29/20 10:05 Dose: 10 ml Documented by: Clinical Impression(s) from Imaging Studies Chest X-Ray 02/26/20 11:11 IMPRESSION: Worsening bilateral pneumonia. Chest CTA 02/26/20 18:50 IMPRESSION: No demonstrated pulmonary embolism or arterial dissection. Bilateral diffuse pulmonary infiltrates. Mild mediastinal adenopathy. Small hiatal hernia. Inpatient E&M: [id number] [facility] Hosp L2
[2020-03-01] VITALS (12 sets, daily range): BP systolic 112–131; BP diastolic 65–79; PULSE 66–83; RESP 16–20; TEMP 36.2–37; O2SAT 87–95
[2020-03-01 08:03] LABS: Hematocrit 44.2 % (40-54); Hemoglobin 14.4 g/dL (13.0-16.5); Mean Corp Hgb Conc 32.6 g/dL (32-36); Mean Corpuscular Hgb 30.8 pg (27.0-32.0); Mean Corpuscular Volume 94.6 fL (80-94); Mean Platelet Vol. 10.5 fl (6.2-12.0); Platelet Count 492 K/mm3 (150-450); RBC Distribution Width CV 12.2 % (11.6-14.6); RBC Distribution Width SD 42.7 fl (35.1-43.9); Red Blood Count 4.67 M/mm3 (4.6-6.2)
[2020-03-01 08:52] LABS: ALB/GLOB Ratio 0.6 RATIO (0.9-2.4); AST(SGOT) 43 U/L (15-37); Alanine Aminotransfer ALT/SGPT 70 U/L (16-61); Albumin, Serum 2.5 g/dL (3.2-5.0); Alkaline Phosphatase 93 U/L (45-117); Anion Gap 7 (5-15); BUN 17 mg/dL (7-18); BUN/Creat Ratio 21.5 RATIO (10-20); Calcium,Total 8.8 mg/dL (8.5-10.1); Chloride 106 mmol/L (98-107); Creatinine, Serum 0.79 mg/dL (0.70-1.30); EST Glomerular Filtration Rate 106 mL/min (>60); Est Glom Filt Rate - Afr Amer 129 mL/min (>60); Estimated Creatinine Clearance 110.51 ml/min; Globulin 4.2 g/dL (2.2-4.2); Glucose 74 mg/dL (74-106); Potassium 4.5 mmol/L (3.5-5.1); Protein, Total 6.7 g/dL (6.4-8.2); Sodium Level 139 mmol/L (136-145)
--- NOTE | 2020-03-01 09:08 | PCM.PN.PUL ---
Patient Problems: Active and Suspected Problems Hypoxia (Acute) COVID-19 (Acute) Lactic acid acidosis (Acute) Leucocytosis (Acute) Subjective: The patient was seen and examined at the bedside this morning. Events from the last 24 hours have been reviewed. The patient is currently afebrile, hemodynamically stable and maintaining appropriate oxygen saturations on 12 L/min via nasal cannula. The patient remains on Decadron, Lovenox and remdesivir. Renal and liver function are stable. Shortness of breath is stable with continued cough noted. Oxygen requirements have slowly been increasing. Objective: The patient's most recent lab work, culture data and imaging studies have all been personally reviewed. Coronavirus PCR was positive on February 25. - Physical Exam Vitals/I&O's: Vital Signs Temp Pulse Resp BP Pulse Ox 97.5 F L 66 18 131/79 H 93 03/01/20 01:51 03/01/20 01:51 03/01/20 01:51 03/01/20 01:51 03/01/20 01:51 Oxygen Flow Rate (L/min) 11 Oxygen Delivery Method Nasal Cannula Weight: 216 lb 0.002 oz Body Mass Index (BMI) 29.2 Intake and Output for Last 24 Hours 02/28/20 02/29/20 03/01/20 23:59 23:59 23:59 Intake Total 250 / 350 450 / 450 Balance 250 / 350 450 / 450 General: Alert, Cooperative, No apparent distress HEENT: Atraumatic, PERRLA, Normocephalic Oral: No Gingival or Mucosal Lesions/ Ulcerations Neck: Supple Lungs: Diminished Cardiovascular: Regular rate, Regular Rhythm Abdomen: Bowel Sounds Present, Soft, Non Tender Extremities: No clubbing, No cyanosis, No edema Skin: No breakdown Musculoskeletal: No Tenderness to Palpation of Joints or Extremities Lymphatic: No Cervical, Supraclavicular, or Inguinal Adenopathy Neurological: Cranial nerves II-XII grossly intact, Neuro grossly intact Psych/Mental Status: Normal Affect, Appropriate Labs (Last 48 Hours) 02/29/20 02/29/20 03/01/20 05:24 05:24 06:05 WBC 18.9 H 22.0 H RBC 4.52 L 4.67 Hgb 13.7 14.4 Hct 42.5 44.2 MCV 94.0 94.6 H MCH 30.3 30.8 MCHC 32.2 32.6 RDW Std Deviation 42.3 42.7 RDW Coeff of Soumya 12.3 12.2 Plt Count 446 492 H MPV 10.2 10.5 Sodium 139 Potassium 4.6 Chloride 106 Carbon Dioxide 25.0 Anion Gap 8 BUN 20 H Creatinine 0.71 Estim Creat Clear Calc 122.96 Est GFR (MDRD) Af Amer 146 Est GFR (MDRD) Non-Af 121 BUN/Creatinine Ratio 28.2 H Glucose 89 Calcium 8.4 L Total Bilirubin 0.50 AST 47 H ALT 72 H Alkaline Phosphatase 83 Total Protein 5.9 L Albumin 2.5 L Globulin 3.4 Albumin/Globulin Ratio 0.7 L 03/01/20 06:05 WBC RBC Hgb Hct MCV MCH MCHC RDW Std Deviation RDW Coeff of Soumya Plt Count MPV Sodium 139 Potassium 4.5 Chloride 106 Carbon Dioxide 26.0 Anion Gap 7 BUN 17 Creatinine 0.79 Estim Creat Clear Calc 110.51 Est GFR (MDRD) Af Amer 129 Est GFR (MDRD) Non-Af 106 BUN/Creatinine Ratio 21.5 H Glucose 74 Calcium 8.8 Total Bilirubin 0.60 AST 43 H ALT 70 H Alkaline Phosphatase 93 Total Protein 6.7 Albumin 2.5 L Globulin 4.2 Albumin/Globulin Ratio 0.6 L Microbiology 02/26/20 10:50 Blood Culture (Wb) - Anticubital Left Blood Culture - Preliminary No growth in 48 hours. 02/26/20 10:50 Blood Culture (Wb) - Left Hand Blood Culture - Preliminary No growth in 48 hours. 02/26/20 12:20 Urine, Clean Catch Urine Culture - Final Culture exhibits no growth. Clinical Impression(s) from Imaging Studies Chest X-Ray 02/26/20 11:11 IMPRESSION: Worsening bilateral pneumonia. Electronically Signed: Ernst Fuentes MD at 11:43 EST Tel , Service support , Chest CTA 02/26/20 18:50 IMPRESSION: No demonstrated pulmonary embolism or arterial dissection. Bilateral diffuse pulmonary infiltrates. Mild mediastinal adenopathy. Small hiatal hernia. Electronically Signed: Castro Cordon DO at 20:43 EST Tel [phone], Service support , Current Medications Acetaminophen (Acetaminophen 325 Mg Tablet) 650 mg PO Q6H PRN PRN PRN Reason: Pain Score 1-10/Temp > 100.7 F Last Admin: 02/27/20 00:22 Dose: 650 mg Documented by: Al Hydroxide/Mg Hydroxide (Mag Hydrox/Al Hydrox/Simeth 30 Ml Udc) 30 ml PO Q6H PRN PRN PRN Reason: Gastric Burning Dexamethasone (Dexamethasone 4 Mg Tablet) 6 mg PO DAILY [facility] Stop: 03/06/20 10:01 Last Admin: 02/29/20 08:36 Dose: 6 mg Documented by: Enoxaparin Sodium (Enoxaparin 40 Mg/0.4 Ml Syringe) 40 mg SC BID [facility] Last Admin: 02/29/20 20:16 Dose: 40 mg Documented by: Sodium Chloride () 250 mls @ 15 mls/hr IV .[id number] PRN PRN Reason: Saline Flush Sodium Chloride () 250 mls @ 15 mls/hr IV .[id number] PRN PRN Reason: Additional IVPB Infusion Remdesivir 100 mg/ Sodium (Chloride) 250 mls @ 125 mls/hr IV DAILY [facility]; Protocol Stop: 03/02/20 11:59 Last Infusion: 02/29/20 12:04 Dose: Infused Documented by: Ondansetron HCl (Ondansetron 4 Mg/2 Ml Vial) 4 mg IV Q8H PRN PRN PRN Reason: NAUSEA/VOMITING Psyllium Hydrophilic Mucilloid (Psyllium 1 Packet) 1 packet PO DAILY PRN PRN PRN Reason: Constipation Senna/Docusate Sodium (Senna/Docusate Sodium 1 Tablet) 2 tablet PO BID PRN PRN PRN Reason: Constipation Sodium Chloride (0.9% Saline Lock 10 Ml Syringe) 10 - 40 ml IV UD PRN PRN Reason: SALINE FLUSH Last Admin: 02/29/20 20:16 Dose: 10 ml Documented by: Medical Necessity - Tobacco Use Smoking Status: Former smoker Tobacco Use: Non-smoker Assessment/Plan All Active Problems Hypoxia (Acute) COVID-19 (Acute) Lactic acid acidosis (Acute) Leucocytosis (Acute) RECOMMENDATIONS: 1. Continue remdesivir. Monitor liver and renal function accordingly. 2. Will empirically give one-time dose of IV Lasix today. 3. Wean supplemental oxygen to maintain saturations at or above 90%. 4. Continue Decadron 6 mg daily x10 days. 5. Continue Lovenox as ordered. 6. Encourage incentive spirometer use and mobilize patient as tolerated. 7. Airvo/BIPAP can be utilized, if needed, to maintain saturations at or above 90%. IMPRESSIONS: 1. Acute hypoxemic respiratory failure secondary to COVID-19 pneumonia Plan to continue current supportive measures with supplemental oxygen to maintain saturations at or above 90%. Liver and renal function are within normal limits. The patient will be continued on remdesivir and Decadron 6 mg/day. Continue Lovenox for DVT prophylaxis as ordered. Encourage incentive spirometer use and mobilize patient as tolerated. Given increasing oxygen requirements, will give one-time dose of IV Lasix today. If oxygenation continues to worsen, recommend starting the patient on either BiPAP or Airvo heated high flow oxygen. This note was generated with [employer] dictation software. It may contain incorrect words, spelling, and punctuation that were not noted in checking the note before signing. Inpatient E&M: [id number] [facility] Hosp L3
[2020-03-01] MEDS: Enoxaparin 40 MG/0.4 ML Syringe SC ×2 (09:23→21:34)
[2020-03-01] MEDS: dexAMETHasone 4 MG Tablet 6 MG PO (09:23)
[2020-03-01] MEDS: Furosemide 40 MG/4 ML Vial IV (11:07)
[2020-03-01] MEDS: 0.9% Saline Lock 10 ML Syringe IV ×2 (11:07→13:06)
--- NOTE | 2020-03-01 15:03 | PN_ITS ---
Patient Problems: Active and Suspected Problems Hypoxia (Acute) COVID-19 (Acute) Lactic acid acidosis (Acute) Leucocytosis (Acute) Reason for Visit: Acute hypoxic respiratory failure secondary to COVID-19 pneumonia Objective: Patient found very hypoxic and oxygen addressed to 12 L and then was put on AIR VO. Discussed with email marketing specialist. Lasix 40 mg IV 1 dose ordered. Patient himself denies any worsening of short of breath but he is obviously tachypneic and mild short of breath. Cough with mild sputum production. Denies nausea or vomiting. Physical exam General: Alert, Oriented x3, Cooperative HEENT: Atraumatic, PERRLA, EOMI, Normocephalic Oral: No Gingival or Mucosal Lesions/ Ulcerations Neck: Supple, No JVD, Negative Carotid Bruits Lungs: Air entry diminished in bilateral lungs. No crepitation/rhonchi. Very hypoxic Cardiovascular: Regular rate, Regular Rhythm, Normal S1, Normal S2, No murmurs Abdomen: Bowel Sounds Present, Soft, Non Tender, Non-Distended : No renal angle tenderness. No suprapubic tenderness. Extremities: No edema, Capillary Refill Less than 3 Seconds Skin: No rashes, No breakdown Musculoskeletal: No Tenderness to Palpation of Joints or Extremities Neurological: Cranial nerves II-XII grossly intact, Deep Tendon Reflexes 2+/4 and Symmetrical, Neuro grossly intact Psych/Mental Status: Normal Affect, Appropriate. Vitals/I&O's: Vital Signs Temp Pulse Resp BP Pulse Ox 97.5 F L 81 16 114/68 90 03/01/20 13:00 03/01/20 14:00 03/01/20 14:00 03/01/20 13:00 03/01/20 14:00 Oxygen Flow Rate (L/min) 15 Oxygen Delivery Method Airvo Weight: 216 lb 0.002 oz Body Mass Index (BMI) 29.2 Intake and Output for Last 24 Hours 02/28/20 02/29/20 03/01/20 23:59 23:59 23:59 Intake Total 250 / 350 450 / 450 850 / 850 Output Total 2300 / 2300 Balance 250 / 350 450 / 450 -1450 / -1450 Microbiology Past 72 Hours 02/26/20 10:50 Blood Culture (Wb) - Anticubital Left Blood Culture - Preliminary No growth in 48 hours. 02/26/20 10:50 Blood Culture (Wb) - Left Hand Blood Culture - Preliminary No growth in 48 hours. 02/26/20 12:20 Urine, Clean Catch Urine Culture - Final Culture exhibits no growth. Laboratory Results 03/01/20 06:05: WBC 22.0 H, RBC 4.67, Hgb 14.4, Hct 44.2, MCV 94.6 H, MCH 30.8, MCHC 32.6, RDW Std Deviation 42.7, RDW Coeff of Soumya 12.2, Plt Count 492 H, MPV 10.5 03/01/20 06:05: Sodium 139, Potassium 4.5, Chloride 106, Carbon Dioxide 26.0, Anion Gap 7, BUN 17, Creatinine 0.79, Estim Creat Clear Calc 110.51, Est GFR (MDRD) Af Amer 129, Est GFR (MDRD) Non-Af 106, BUN/Creatinine Ratio 21.5 H, Glucose 74, Calcium 8.8, Total Bilirubin 0.60, AST 43 H, ALT 70 H, Alkaline Phosphatase 93, Total Protein 6.7, Albumin 2.5 L, Globulin 4.2, Albumin/Globulin Ratio 0.6 L Current Medications Acetaminophen (Acetaminophen 325 Mg Tablet) 650 mg PO Q6H PRN PRN PRN Reason: Pain Score 1-10/Temp > 100.7 F Last Admin: 02/27/20 00:22 Dose: 650 mg Documented by: Al Hydroxide/Mg Hydroxide (Mag Hydrox/Al Hydrox/Simeth 30 Ml Udc) 30 ml PO Q6H PRN PRN PRN Reason: Gastric Burning Dexamethasone (Dexamethasone 4 Mg Tablet) 6 mg PO DAILY [facility] Stop: 03/06/20 10:01 Last Admin: 03/01/20 09:23 Dose: 6 mg Documented by: Enoxaparin Sodium (Enoxaparin 40 Mg/0.4 Ml Syringe) 40 mg SC BID [facility] Last Admin: 03/01/20 09:23 Dose: 40 mg Documented by: Sodium Chloride () 250 mls @ 15 mls/hr IV .[id number] PRN PRN Reason: Saline Flush Sodium Chloride () 250 mls @ 15 mls/hr IV .[id number] PRN PRN Reason: Additional IVPB Infusion Remdesivir 100 mg/ Sodium (Chloride) 250 mls @ 125 mls/hr IV DAILY [facility]; Protocol Stop: 03/02/20 11:59 Last Infusion: 03/01/20 13:07 Dose: Infused Documented by: Ondansetron HCl (Ondansetron 4 Mg/2 Ml Vial) 4 mg IV Q8H PRN PRN PRN Reason: NAUSEA/VOMITING Psyllium Hydrophilic Mucilloid (Psyllium 1 Packet) 1 packet PO DAILY PRN PRN PRN Reason: Constipation Senna/Docusate Sodium (Senna/Docusate Sodium 1 Tablet) 2 tablet PO BID PRN PRN PRN Reason: Constipation Sodium Chloride (0.9% Saline Lock 10 Ml Syringe) 10 - 40 ml IV UD PRN PRN Reason: SALINE FLUSH Last Admin: 03/01/20 13:06 Dose: 10 ml Documented by: STROKE Vital Signs/Narrative: Vital Signs Temp Pulse Resp BP Pulse Ox 03/01/20 14:00 81 16 90 03/01/20 13:00 97.5 F L 83 16 114/68 93 Medical Necessity - Tobacco Use Smoking Status: Former smoker Tobacco Use: Non-smoker Assessment/Plan All Active Problems Hypoxia (Acute) COVID-19 (Acute) Lactic acid acidosis (Acute) Leucocytosis (Acute) 1. Acute hypoxic respiratory failure secondary to acute COVID-19 infection: Patient is still on 5 L of oxygen. On IV remdesivir. Stop date on 03/02/2020. Continue with breathing treatments, IV steroids, encourage use of incentive spirometer. PEP. Wean off oxygen for SPO2 more than 94%. D-dimer elevated 0.84. On Lovenox 30 mg subcu twice daily 02/27: Remdesivir is started on 02/26. On Decadron. Leukocytosis, but lymphocyte normal 23.4% 02/28: Continue remdesivir. Patient on 10 to 11 L of oxygen. Leukocytosis 19,000. Thrombocytosis 146,000 secondary to acute COVID-19 pneumonia. Mild elevated ALT and AST probably secondary to acute COVID-19 infection or DILI from remdesivir. 03/01: 1 dose of Lasix 40 mg IV given. Leukocytosis, fluctuates between 19,000- 22,000. No definite trend. Hypoxia and tachypnea worsened. On AIR VO. Liver tests, transaminases very slow trend of improvement almost plateaued.. 2. Acute COVID-19 with hypoxia, Pulse ox 90% on 12 L of oxygen. Oxygen was changed to AIRVO 3. Lactic acidosis secondary to hypoxia 4. DVT PPx- Lovenox SC Microbiology Past 72 Hours 02/26/20 10:50 Blood Culture (Wb) - Anticubital Left Blood Culture - Preliminary No growth in 48 hours. 02/26/20 10:50 Blood Culture (Wb) - Left Hand Blood Culture - Preliminary No growth in 48 hours. 02/26/20 12:20 Urine, Clean Catch Urine Culture - Final Culture exhibits no growth. Laboratory Results 03/01/20 06:05: WBC 22.0 H, RBC 4.67, Hgb 14.4, Hct 44.2, MCV 94.6 H, MCH 30.8, MCHC 32.6, RDW Std Deviation 42.7, RDW Coeff of Soumya 12.2, Plt Count 492 H, MPV 10.5 03/01/20 06:05: Sodium 139, Potassium 4.5, Chloride 106, Carbon Dioxide 26.0, Anion Gap 7, BUN 17, Creatinine 0.79, Estim Creat Clear Calc 110.51, Est GFR (MDRD) Af Amer 129, Est GFR (MDRD) Non-Af 106, BUN/Creatinine Ratio 21.5 H, Glucose 74, Calcium 8.8, Total Bilirubin 0.60, AST 43 H, ALT 70 H, Alkaline Phosphatase 93, Total Protein 6.7, Albumin 2.5 L, Globulin 4.2, Albumin/Globulin Ratio 0.6 L Clinical Impression(s) from Imaging Studies Chest X-Ray 02/26/20 11:11 IMPRESSION: Worsening bilateral pneumonia. Electronically Signed: Ernst Fuentes MD at 11:43 EST Tel , Service support , Chest CTA 02/26/20 18:50 IMPRESSION: No demonstrated pulmonary embolism or arterial dissection. Bilateral diffuse pulmonary infiltrates. Mild mediastinal adenopathy. Small hiatal hernia. Electronically Signed: Castro Cordon DO at 20:43 EST Tel [phone], Service support , Clinical Impression(s) from Imaging Studies Chest X-Ray 02/26/20 11:11 IMPRESSION: Worsening bilateral pneumonia. Chest CTA 02/26/20 18:50 IMPRESSION: No demonstrated pulmonary embolism or arterial dissection. Bilateral diffuse pulmonary infiltrates. Mild mediastinal adenopathy. Small hiatal hernia. Inpatient E&M: [id number] [facility] L2
[2020-03-02] VITALS (13 sets, daily range): BP systolic 96–122; BP diastolic 58–75; PULSE 58–79; RESP 16–22; TEMP 36.7–37.1; O2SAT 89–97
[2020-03-02 07:27] LABS: Hematocrit 46.2 % (40-54); Hemoglobin 14.9 g/dL (13.0-16.5); Mean Corp Hgb Conc 32.3 g/dL (32-36); Mean Corpuscular Hgb 29.8 pg (27.0-32.0); Mean Corpuscular Volume 92.4 fL (80-94); Mean Platelet Vol. 10.1 fl (6.2-12.0); Platelet Count 511 K/mm3 (150-450); RBC Distribution Width CV 12.1 % (11.6-14.6); RBC Distribution Width SD 41.4 fl (35.1-43.9); White Blood Count 24.2 K/mm3 (4.4-11.0)
[2020-03-02 07:47] LABS: ALB/GLOB Ratio 0.6 RATIO (0.9-2.4); AST(SGOT) 36 U/L (15-37); Alanine Aminotransfer ALT/SGPT 62 U/L (16-61); Albumin, Serum 2.7 g/dL (3.2-5.0); Alkaline Phosphatase 91 U/L (45-117); Anion Gap 7 (5-15); BUN 19 mg/dL (7-18); Chloride 101 mmol/L (98-107); Creatinine, Serum 0.83 mg/dL (0.70-1.30); EST Glomerular Filtration Rate 101 mL/min (>60); Est Glom Filt Rate - Afr Amer 123 mL/min (>60); Estimated Creatinine Clearance 105.18 ml/min; Globulin 4.3 g/dL (2.2-4.2); Glucose 77 mg/dL (74-106); Potassium 4.1 mmol/L (3.5-5.1); Sodium Level 135 mmol/L (136-145)
[2020-03-02] MEDS: Enoxaparin 40 MG/0.4 ML Syringe SC ×2 (09:40→20:17)
[2020-03-02] MEDS: dexAMETHasone 4 MG Tablet 6 MG PO (09:40)
--- NOTE | 2020-03-02 10:39 | PCM.PN.PUL ---
Patient Problems: Active and Suspected Problems Hypoxia (Acute) COVID-19 (Acute) Lactic acid acidosis (Acute) Leucocytosis (Acute) Subjective: The patient was seen and examined at the bedside this morning. Events from the last 24 hours have been reviewed. The patient is currently afebrile, hemodynamically stable and maintaining appropriate oxygen saturations on Airvo heated high flow with an FiO2 requirement of 59%. The patient remains on Decadron, Lovenox and remdesivir. Renal and liver function are stable. The patient does believe that his shortness of breath and cough have improved somewhat. Objective: The patient's most recent lab work, culture data and imaging studies have all been personally reviewed. Coronavirus PCR was positive on February 25. - Physical Exam Vitals/I&O's: Vital Signs Temp Pulse Resp BP Pulse Ox 98.1 F 76 18 119/70 94 03/02/20 09:54 03/02/20 09:54 03/02/20 09:54 03/02/20 09:54 03/02/20 09:54 Oxygen Flow Rate (L/min) 23 Oxygen Delivery Method Airvo Weight: 216 lb 0.002 oz Body Mass Index (BMI) 29.2 Intake and Output for Last 24 Hours 02/29/20 03/01/20 03/02/20 23:59 23:59 23:59 Intake Total 450 / 450 1300 / 1300 400 / 400 Output Total 3125 / 3125 375 / 375 Balance 450 / 450 -1825 / -1825 General: Alert, Cooperative, No apparent distress HEENT: Atraumatic, Normocephalic Oral: No Gingival or Mucosal Lesions/ Ulcerations Neck: Supple, No Nodes, Trachea Midline Lungs: No rhonchi, No wheeze, No rales, Diminished Cardiovascular: Regular rate, Regular Rhythm Abdomen: Bowel Sounds Present, Soft, Non Tender Extremities: No clubbing, No cyanosis, No edema Skin: No breakdown Musculoskeletal: No Muscle Wasting Lymphatic: No Cervical, Supraclavicular, or Inguinal Adenopathy Neurological: Neuro grossly intact Psych/Mental Status: Flat Affect Labs (Last 48 Hours) 03/01/20 03/01/20 03/02/20 06:05 06:05 06:08 WBC 22.0 H 24.2 H RBC 4.67 5.00 Hgb 14.4 14.9 Hct 44.2 46.2 MCV 94.6 H 92.4 MCH 30.8 29.8 MCHC 32.6 32.3 RDW Std Deviation 42.7 41.4 RDW Coeff of Soumya 12.2 12.1 Plt Count 492 H 511 H MPV 10.5 10.1 Sodium 139 Potassium 4.5 Chloride 106 Carbon Dioxide 26.0 Anion Gap 7 BUN 17 Creatinine 0.79 Estim Creat Clear Calc 110.51 Est GFR (MDRD) Af Amer 129 Est GFR (MDRD) Non-Af 106 BUN/Creatinine Ratio 21.5 H Glucose 74 Calcium 8.8 Total Bilirubin 0.60 AST 43 H ALT 70 H Alkaline Phosphatase 93 Total Protein 6.7 Albumin 2.5 L Globulin 4.2 Albumin/Globulin Ratio 0.6 L 03/02/20 06:08 WBC RBC Hgb Hct MCV MCH MCHC RDW Std Deviation RDW Coeff of Soumya Plt Count MPV Sodium 135 L Potassium 4.1 Chloride 101 Carbon Dioxide 27.0 Anion Gap 7 BUN 19 H Creatinine 0.83 Estim Creat Clear Calc 105.18 Est GFR (MDRD) Af Amer 123 Est GFR (MDRD) Non-Af 101 BUN/Creatinine Ratio 23.0 H Glucose 77 Calcium 9.0 Total Bilirubin 0.80 AST 36 ALT 62 H Alkaline Phosphatase 91 Total Protein 7.0 Albumin 2.7 L Globulin 4.3 H Albumin/Globulin Ratio 0.6 L Clinical Impression(s) from Imaging Studies Chest X-Ray 02/26/20 11:11 IMPRESSION: Worsening bilateral pneumonia. Electronically Signed: Ernst Fuentes MD at 11:43 EST Tel , Service support , Chest CTA 02/26/20 18:50 IMPRESSION: No demonstrated pulmonary embolism or arterial dissection. Bilateral diffuse pulmonary infiltrates. Mild mediastinal adenopathy. Small hiatal hernia. Electronically Signed: Castro Cordon DO at 20:43 EST Tel [phone], Service support , Current Medications Acetaminophen (Acetaminophen 325 Mg Tablet) 650 mg PO Q6H PRN PRN PRN Reason: Pain Score 1-10/Temp > 100.7 F Last Admin: 02/27/20 00:22 Dose: 650 mg Documented by: Al Hydroxide/Mg Hydroxide (Mag Hydrox/Al Hydrox/Simeth 30 Ml Udc) 30 ml PO Q6H PRN PRN PRN Reason: Gastric Burning Dexamethasone (Dexamethasone 4 Mg Tablet) 6 mg PO DAILY [facility] Stop: 03/06/20 10:01 Last Admin: 03/02/20 09:40 Dose: 6 mg Documented by: Enoxaparin Sodium (Enoxaparin 40 Mg/0.4 Ml Syringe) 40 mg SC BID [facility] Last Admin: 03/02/20 09:40 Dose: 40 mg Documented by: Sodium Chloride () 250 mls @ 15 mls/hr IV .[id number] PRN PRN Reason: Saline Flush Sodium Chloride () 250 mls @ 15 mls/hr IV .[id number] PRN PRN Reason: Additional IVPB Infusion Remdesivir 100 mg/ Sodium (Chloride) 250 mls @ 125 mls/hr IV DAILY [facility]; Protocol Stop: 03/02/20 11:59 Last Infusion: 03/01/20 13:07 Dose: Infused Documented by: Ondansetron HCl (Ondansetron 4 Mg/2 Ml Vial) 4 mg IV Q8H PRN PRN PRN Reason: NAUSEA/VOMITING Psyllium Hydrophilic Mucilloid (Psyllium 1 Packet) 1 packet PO DAILY PRN PRN PRN Reason: Constipation Senna/Docusate Sodium (Senna/Docusate Sodium 1 Tablet) 2 tablet PO BID PRN PRN PRN Reason: Constipation Sodium Chloride (0.9% Saline Lock 10 Ml Syringe) 10 - 40 ml IV UD PRN PRN Reason: SALINE FLUSH Last Admin: 03/01/20 13:06 Dose: 10 ml Documented by: Medical Necessity - Tobacco Use Smoking Status: Former smoker Tobacco Use: Non-smoker Assessment/Plan All Active Problems Hypoxia (Acute) COVID-19 (Acute) Lactic acid acidosis (Acute) Leucocytosis (Acute) RECOMMENDATIONS: 1. Continue remdesivir. Monitor liver and renal function accordingly. 2. IV Lasix x1. 3. Wean supplemental oxygen to maintain saturations at or above 90%. 4. Continue Decadron 6 mg daily x10 days. 5. Continue Lovenox as ordered. 6. Encourage incentive spirometer use and mobilize patient as tolerated. IMPRESSIONS: 1. Acute hypoxemic respiratory failure secondary to COVID-19 pneumonia Plan to continue current supportive measures with supplemental oxygen to maintain saturations at or above 90%. Liver and renal function are within normal limits. The patient will be continued on remdesivir and Decadron 6 mg/day. Continue Lovenox for DVT prophylaxis as ordered. Encourage incentive spirometer use and mobilize patient as tolerated. Given increasing oxygen requirements, will continue attempts at gentle diuresis as tolerated by hemodynamics and renal function. This note was generated with [employer] dictation software. It may contain incorrect words, spelling, and punctuation that were not noted in checking the note before signing. Inpatient E&M: [id number] [facility] Hosp L3
[2020-03-02] MEDS: Furosemide 40 MG/4 ML Vial IV (11:29)
[2020-03-02] MEDS: 0.9% Saline Lock 10 ML Syringe IV (11:29)
--- NOTE | 2020-03-02 14:20 | PN_ITS ---
Patient Problems: Active and Suspected Problems Hypoxia (Acute) COVID-19 (Acute) Lactic acid acidosis (Acute) Leucocytosis (Acute) Reason for Visit: Acute hypoxic respiratory failure secondary to COVID-19 bilateral pneumonia Seen and examined. No change in breathing but did not get worse. Patient has mild cough. On 60% FiO2, AIRVO Physical exam General: Alert, Oriented x3, Cooperative HEENT: Atraumatic, PERRLA, EOMI, Normocephalic Oral: No Gingival or Mucosal Lesions/ Ulcerations Neck: Supple, No JVD, Negative Carotid Bruits Lungs: Air entry diminished in bilateral lungs. Bilateral fine expiratory rhonchi. Cardiovascular: Regular rate, Regular Rhythm, Normal S1, Normal S2, No murmurs Abdomen: Bowel Sounds Present, Soft, Non Tender, Non-Distended : No renal angle tenderness. No suprapubic tenderness. Extremities: No edema, Capillary Refill Less than 3 Seconds Skin: No rashes, No breakdown Musculoskeletal: No Tenderness to Palpation of Joints or Extremities Neurological: Cranial nerves II-XII grossly intact, Deep Tendon Reflexes 2+/4 and Symmetrical, Neuro grossly intact Psych/Mental Status: Normal Affect, Appropriate. Vitals/I&O's: Vital Signs Temp Pulse Resp BP Pulse Ox 98.1 F 65 17 119/70 91 03/02/20 09:54 03/02/20 12:45 03/02/20 12:45 03/02/20 09:54 03/02/20 12:45 Oxygen Flow Rate (L/min) 23 Oxygen Delivery Method Airvo Weight: 216 lb 0.002 oz Body Mass Index (BMI) 29.2 Intake and Output for Last 24 Hours 02/29/20 03/01/20 03/02/20 23:59 23:59 23:59 Intake Total 450 / 450 1300 / 1300 650 / 650 Output Total 3125 / 3125 2175 / 2175 Balance 450 / 450 -1825 / -1825 -1525 / -1525 Microbiology Past 72 Hours 02/26/20 10:50 Blood Culture (Wb) - Anticubital Left Blood Culture - Final No growth in 5 days. 02/26/20 10:50 Blood Culture (Wb) - Left Hand Blood Culture - Final No growth in 5 days. Laboratory Results 03/02/20 06:08: WBC 24.2 H, RBC 5.00, Hgb 14.9, Hct 46.2, MCV 92.4, MCH 29.8, MC HC 32.3, RDW Std Deviation 41.4, RDW Coeff of Soumya 12.1, Plt Count 511 H, MPV 10.1 03/02/20 06:08: Sodium 135 L, Potassium 4.1, Chloride 101, Carbon Dioxide 27.0, Anion Gap 7, BUN 19 H, Creatinine 0.83, Estim Creat Clear Calc 105.18, Est GFR (MDRD) Af Amer 123, Est GFR (MDRD) Non-Af 101, BUN/Creatinine Ratio 23.0 H, Glucose 77, Calcium 9.0, Total Bilirubin 0.80, AST 36, ALT 62 H, Alkaline Phosphatase 91, Total Protein 7.0, Albumin 2.7 L, Globulin 4.3 H, Albumin/Globulin Ratio 0.6 L Current Medications Acetaminophen (Acetaminophen 325 Mg Tablet) 650 mg PO Q6H PRN PRN PRN Reason: Pain Score 1-10/Temp > 100.7 F Last Admin: 02/27/20 00:22 Dose: 650 mg Documented by: Al Hydroxide/Mg Hydroxide (Mag Hydrox/Al Hydrox/Simeth 30 Ml Udc) 30 ml PO Q6H PRN PRN PRN Reason: Gastric Burning Dexamethasone (Dexamethasone 4 Mg Tablet) 6 mg PO DAILY [facility] Stop: 03/06/20 10:01 Last Admin: 03/02/20 09:40 Dose: 6 mg Documented by: Enoxaparin Sodium (Enoxaparin 40 Mg/0.4 Ml Syringe) 40 mg SC BID [facility] Last Admin: 03/02/20 09:40 Dose: 40 mg Documented by: Sodium Chloride () 250 mls @ 15 mls/hr IV .[id number] PRN PRN Reason: Saline Flush Sodium Chloride () 250 mls @ 15 mls/hr IV .[id number] PRN PRN Reason: Additional IVPB Infusion Ondansetron HCl (Ondansetron 4 Mg/2 Ml Vial) 4 mg IV Q8H PRN PRN PRN Reason: NAUSEA/VOMITING Psyllium Hydrophilic Mucilloid (Psyllium 1 Packet) 1 packet PO DAILY PRN PRN PRN Reason: Constipation Senna/Docusate Sodium (Senna/Docusate Sodium 1 Tablet) 2 tablet PO BID PRN PRN PRN Reason: Constipation Sodium Chloride (0.9% Saline Lock 10 Ml Syringe) 10 - 40 ml IV UD PRN PRN Reason: SALINE FLUSH Last Admin: 03/02/20 11:29 Dose: 10 ml Documented by: GUADALUPE Vital Signs/Narrative: Vital Signs Pulse Resp Pulse Ox 03/02/20 12:45 65 17 91 Medical Necessity - Tobacco Use Smoking Status: Former smoker Tobacco Use: Non-smoker Assessment/Plan All Active Problems Hypoxia (Acute) COVID-19 (Acute) Lactic acid acidosis (Acute) Leucocytosis (Acute) 1. Acute hypoxic respiratory failure secondary to acute COVID-19 infection: Patient is still on 5 L of oxygen. On IV remdesivir. Stop date on 03/02/2020. Continue with breathing treatments, IV steroids, encourage use of incentive spirometer. PEP. Wean off oxygen for SPO2 more than 94%. D-dimer elevated 0.84. On Lovenox 30 mg subcu twice daily 02/27: Remdesivir is started on 02/26. On Decadron. Leukocytosis, but lymphocyte normal 23.4% 02/28: Continue remdesivir. Patient on 10 to 11 L of oxygen. Leukocytosis 19,000. Thrombocytosis 146,000 secondary to acute COVID-19 pneumonia. Mild elevated ALT and AST probably secondary to acute COVID-19 infection or DILI from remdesivir. 03/01: 1 dose of Lasix 40 mg IV given. Leukocytosis, fluctuates between 19,000- 22,000. No definite trend. Hypoxia and tachypnea worsened. On AIR VO. Liver tests, transaminases very slow trend of improvement almost plateaued.. 03/02: Leukocytosis present. WBC count 24.2 thousand. Sodium 135. BUN 19. Mild decrease in sodium and BUN elevation from Lasix given yesterday. Follow-up labs 2. Acute COVID-19 with hypoxia, Patient respiratory status is currently stable on AIRVO, 60% FiO2 3. Lactic acidosis secondary to hypoxia 4. DVT PPx- Lovenox SC Microbiology Past 72 Hours 02/26/20 10:50 Blood Culture (Wb) - Anticubital Left Blood Culture - Final No growth in 5 days. 02/26/20 10:50 Blood Culture (Wb) - Left Hand Blood Culture - Final No growth in 5 days. Laboratory Results 03/02/20 06:08: WBC 24.2 H, RBC 5.00, Hgb 14.9, Hct 46.2, MCV 92.4, MCH 29.8, MCHC 32.3, RDW Std Deviation 41.4, RDW Coeff of Soumya 12.1, Plt Count 511 H, MPV 10.1 03/02/20 06:08: Sodium 135 L, Potassium 4.1, Chloride 101, Carbon Dioxide 27.0, Anion Gap 7, BUN 19 H, Creatinine 0.83, Estim Creat Clear Calc 105.18, Est GFR (MDRD) Af Amer 123, Est GFR (MDRD) Non-Af 101, BUN/Creatinine Ratio 23.0 H, Glucose 77, Calcium 9.0, Total Bilirubin 0.80, AST 36, ALT 62 H, Alkaline Phosphatase 91, Total Protein 7.0, Albumin 2.7 L, Globulin 4.3 H, Albumin/Globulin Ratio 0.6 L Clinical Impression(s) from Imaging Studies Chest X-Ray 02/26/20 11:11 IMPRESSION: Worsening bilateral pneumonia. Electronically Signed: Ernst Fuentes MD at 11:43 EST Tel , Service support , Chest CTA 02/26/20 18:50 IMPRESSION: No demonstrated pulmonary embolism or arterial dissection. Bilateral diffuse pulmonary infiltrates. Mild mediastinal adenopathy. Small hiatal hernia. Electronically Signed: Castro Cordon DO at 20:43 EST Tel [phone], Service support , Clinical Impression(s) from Imaging Studies Chest X-Ray 02/26/20 11:11 IMPRESSION: Worsening bilateral pneumonia. Chest CTA 02/26/20 18:50 IMPRESSION: No demonstrated pulmonary embolism or arterial dissection. Bilateral diffuse pulmonary infiltrates. Mild mediastinal adenopathy. Small hiatal hernia. Inpatient E&M: [id number] [facility] H[facility] L2
--- NOTE | 2020-03-02 16:26 | PCM.PN.ID ---
Patient Problems: Active and Suspected Problems Hypoxia (Acute) COVID-19 (Acute) Lactic acid acidosis (Acute) Leucocytosis (Acute) Subjective: Feeling better, breathing slowly improving, no fever - Physical Exam Vitals/I&O's: Vital Signs Temp Pulse Resp BP Pulse Ox 98.7 F 70 16 115/68 97 03/02/20 15:55 03/02/20 15:55 03/02/20 15:55 03/02/20 15:55 03/02/20 15:55 Oxygen Flow Rate (L/min) 23 Oxygen Delivery Method Airvo Weight: 97.976 kg Body Mass Index (BMI) 29.2 Intake and Output for Last 24 Hours 02/29/20 03/01/20 03/02/20 23:59 23:59 23:59 Intake Total 450 / 450 1300 / 1300 650 / 650 Output Total 3125 / 3125 2175 / 2175 Balance 450 / 450 -1825 / -1825 -1525 / -1525 General: Alert, Cooperative, No apparent distress Lungs: Clear to auscultation, Diminished Cardiovascular: Regular rate, Regular Rhythm Abdomen: Soft, Non Tender, Non-Distended Skin: No rashes Microbiology Past 72 Hours 02/26/20 10:50 Blood Culture (Wb) - Anticubital Left Blood Culture - Final No growth in 5 days. 02/26/20 10:50 Blood Culture (Wb) - Left Hand Blood Culture - Final No growth in 5 days. Laboratory Results 03/02/20 06:08: WBC 24.2 H, RBC 5.00, Hgb 14.9, Hct 46.2, MCV 92.4, MCH 29.8, MCHC 32.3, RDW Std Deviation 41.4, RDW Coeff of Soumya 12.1, Plt Count 511 H, MPV 10.1 03/02/20 06:08: Sodium 135 L, Potassium 4.1, Chloride 101, Carbon Dioxide 27.0, Anion Gap 7, BUN 19 H, Creatinine 0.83, Estim Creat Clear Calc 105.18, Est GFR (MDRD) Af Amer 123, Est GFR (MDRD) Non-Af 101, BUN/Creatinine Ratio 23.0 H, Glucose 77, Calcium 9.0, Total Bilirubin 0.80, AST 36, ALT 62 H, Alkaline Phosphatase 91, Total Protein 7.0, Albumin 2.7 L, Globulin 4.3 H, Albumin/Globulin Ratio 0.6 L Current Medications Acetaminophen (Acetaminophen 325 Mg Tablet) 650 mg PO Q6H PRN PRN PRN Reason: Pain Score 1-10/Temp > 100.7 F Last Admin: 02/27/20 00:22 Dose: 650 mg Documented by: Al Hydroxide/Mg Hydroxide (Mag Hydrox/Al Hydrox/Simeth 30 Ml Udc) 30 ml PO Q6H PRN PRN PRN Reason: Gastric Burning Dexamethasone (Dexamethasone 4 Mg Tablet) 6 mg PO DAILY [facility] Stop: 03/06/20 10:01 Last Admin: 03/02/20 09:40 Dose: 6 mg Documented by: Enoxaparin Sodium (Enoxaparin 40 Mg/0.4 Ml Syringe) 40 mg SC BID [facility] Last Admin: 03/02/20 09:40 Dose: 40 mg Documented by: Sodium Chloride () 250 mls @ 15 mls/hr IV .[id number] PRN PRN Reason: Saline Flush Sodium Chloride () 250 mls @ 15 mls/hr IV .[id number] PRN PRN Reason: Additional IVPB Infusion Ondansetron HCl (Ondansetron 4 Mg/2 Ml Vial) 4 mg IV Q8H PRN PRN PRN Reason: NAUSEA/VOMITING Psyllium Hydrophilic Mucilloid (Psyllium 1 Packet) 1 packet PO DAILY PRN PRN PRN Reason: Constipation Senna/Docusate Sodium (Senna/Docusate Sodium 1 Tablet) 2 tablet PO BID PRN PRN PRN Reason: Constipation Sodium Chloride (0.9% Saline Lock 10 Ml Syringe) 10 - 40 ml IV UD PRN PRN Reason: SALINE FLUSH Last Admin: 03/02/20 11:29 Dose: 10 ml Documented by: Medical Necessity - Tobacco Use Smoking Status: Former smoker Tobacco Use: Non-smoker Route of nutrition/ use of supplements: [] Nutritional Intake: [] IV Site: [] Crockett Catheter: [] - Assessment/Plan Antibiotics: [] Assessment/Plan: [] Active and Suspected Problems Hypoxia (Acute) COVID-19 (Acute) Lactic acid acidosis (Acute) Leucocytosis (Acute) Sx started 02/16/20 after attending a wedding. On dex po. Completed remdesivir. O2 slowly improving. Plan is to complete 10 days total of dex, discharge on 2 weeks low dose anticoagulation. Will follow
[2020-03-03] VITALS (10 sets, daily range): BP systolic 107–124; BP diastolic 63–70; PULSE 62–70; RESP 17–20; TEMP 36.3–36.6; O2SAT 93–95
[2020-03-03 07:47] LABS: Hematocrit 45.2 % (40-54); Hemoglobin 14.6 g/dL (13.0-16.5); Mean Corp Hgb Conc 32.3 g/dL (32-36); Mean Corpuscular Hgb 29.9 pg (27.0-32.0); Mean Corpuscular Volume 92.6 fL (80-94); Mean Platelet Vol. 10.2 fl (6.2-12.0); Platelet Count 526 K/mm3 (150-450); RBC Distribution Width CV 12.1 % (11.6-14.6); RBC Distribution Width SD 41.7 fl (35.1-43.9); Red Blood Count 4.88 M/mm3 (4.6-6.2); White Blood Count 21.7 K/mm3 (4.4-11.0)
[2020-03-03 08:31] LABS: ALB/GLOB Ratio 0.6 RATIO (0.9-2.4); AST(SGOT) 25 U/L (15-37); Alanine Aminotransfer ALT/SGPT 49 U/L (16-61); Albumin, Serum 2.5 g/dL (3.2-5.0); Alkaline Phosphatase 82 U/L (45-117); Anion Gap 8 (5-15); BUN 21 mg/dL (7-18); BUN/Creat Ratio 28.5 RATIO (10-20); Calcium,Total 8.8 mg/dL (8.5-10.1); Chloride 101 mmol/L (98-107); Creatinine, Serum 0.74 mg/dL (0.70-1.30); EST Glomerular Filtration Rate 116 mL/min (>60); Est Glom Filt Rate - Afr Amer 140 mL/min (>60); Estimated Creatinine Clearance 117.97 ml/min; Globulin 4.2 g/dL (2.2-4.2); Glucose 75 mg/dL (74-106); Potassium 4.2 mmol/L (3.5-5.1); Protein, Total 6.7 g/dL (6.4-8.2); Sodium Level 137 mmol/L (136-145)
[2020-03-03] MEDS: Enoxaparin 40 MG/0.4 ML Syringe SC ×2 (09:52→21:06)
[2020-03-03] MEDS: dexAMETHasone 4 MG Tablet 6 MG PO (09:52)
--- NOTE | 2020-03-03 10:37 | PCM.PN.HOSP ---
Patient Problems: Active and Suspected Problems Hypoxia (Acute) COVID-19 (Acute) Lactic acid acidosis (Acute) Leucocytosis (Acute) Reason for Visit: Follow-up for COVID-19 bilateral pneumonia with acute severe hypoxic respiratory failure Objective: Patient does not see much improvement of shortness of breath for last 2 to 3 days but does not feel worse either. Mild cough. No fever or chills. On 60% FiO2 for last 2 days Physical exam General: Alert, Oriented x3, Cooperative HEENT: Atraumatic, PERRLA, EOMI, Normocephalic Oral: No Gingival or Mucosal Lesions/ Ulcerations Neck: Supple, No JVD, Negative Carotid Bruits Lungs: Air entry diminished in bilateral lungs. No crepitation/rhonchi. Severe hypoxia Cardiovascular: Regular rate, Regular Rhythm, Normal S1, Normal S2, No murmurs Abdomen: Bowel Sounds Present, Soft, Non Tender, Non-Distended : No renal angle tenderness. No suprapubic tenderness. Extremities: No edema, Capillary Refill Less than 3 Seconds Skin: No rashes, No breakdown Musculoskeletal: No Tenderness to Palpation of Joints or Extremities Neurological: Cranial nerves II-XII grossly intact, Deep Tendon Reflexes 2+/4 and Symmetrical, Neuro grossly intact Psych/Mental Status: Normal Affect, Appropriate. Vitals/I&O's: Vital Signs Temp Pulse Resp BP Pulse Ox 97.9 F 68 18 107/63 94 03/03/20 09:48 03/03/20 09:48 03/03/20 09:48 03/03/20 09:48 03/03/20 09:48 Oxygen Flow Rate (L/min) 50 Oxygen Delivery Method Airvo Weight: 216 lb 0.002 oz Body Mass Index (BMI) 29.2 Intake and Output for Last 24 Hours 03/01/20 03/02/20 03/03/20 23:59 23:59 23:59 Intake Total 1300 / 1300 900 / 900 Output Total 3125 / 3125 5225 / 5225 500 / 500 Balance -1825 / -1825 -4325 / -4325 -500 / -500 Microbiology Past 72 Hours 02/26/20 10:50 Blood Culture (Wb) - Anticubital Left Blood Culture - Final No growth in 5 days. 02/26/20 10:50 Blood Culture (Wb) - Left Hand Blood Culture - Final No growth in 5 days. Laboratory Results 03/03/20 05:45: WBC 21.7 H, RBC 4.88, Hgb 14.6, Hct 45.2, MCV 92.6, MCH 29.9, MCHC 32.3, RDW Std Deviation 41.7, RDW Coeff of Soumya 12.1, Plt Count 526 H, MPV 10.2 03/03/20 05:45: Sodium 137, Potassium 4.2, Chloride 101, Carbon Dioxide 28.0, Anion Gap 8, BUN 21 H, Creatinine 0.74, Estim Creat Clear Calc 117.97, Est GFR (MDRD) Af Amer 140, Est GFR (MDRD) Non-Af 116, BUN/Creatinine Ratio 28.5 H, Glucose 75, Calcium 8.8, Total Bilirubin 0.60, AST 25, ALT 49, Alkaline Phosphatase 82, Total Protein 6.7, Albumin 2.5 L, Globulin 4.2, Albumin/Globulin Ratio 0.6 L Current Medications Acetaminophen (Acetaminophen 325 Mg Tablet) 650 mg PO Q6H PRN PRN PRN Reason: Pain Score 1-10/Temp > 100.7 F Last Admin: 02/27/20 00:22 Dose: 650 mg Documented by: Al Hydroxide/Mg Hydroxide (Mag Hydrox/Al Hydrox/Simeth 30 Ml Udc) 30 ml PO Q6H PRN PRN PRN Reason: Gastric Burning Dexamethasone (Dexamethasone 4 Mg Tablet) 6 mg PO DAILY [facility] Stop: 03/06/20 10:01 Last Admin: 03/03/20 09:52 Dose: 6 mg Documented by: Enoxaparin Sodium (Enoxaparin 40 Mg/0.4 Ml Syringe) 40 mg SC BID [facility] Last Admin: 03/03/20 09:52 Dose: 40 mg Documented by: Sodium Chloride () 250 mls @ 15 mls/hr IV .[id number] PRN PRN Reason: Saline Flush Sodium Chloride () 250 mls @ 15 mls/hr IV .[id number] PRN PRN Reason: Additional IVPB Infusion Ondansetron HCl (Ondansetron 4 Mg/2 Ml Vial) 4 mg IV Q8H PRN PRN PRN Reason: NAUSEA/VOMITING Psyllium Hydrophilic Mucilloid (Psyllium 1 Packet) 1 packet PO DAILY PRN PRN PRN Reason: Constipation Senna/Docusate Sodium (Senna/Docusate Sodium 1 Tablet) 2 tablet PO BID PRN PRN PRN Reason: Constipation Sodium Chloride (0.9% Saline Lock 10 Ml Syringe) 10 - 40 ml IV UD PRN PRN Reason: SALINE FLUSH Last Admin: 03/02/20 11:29 Dose: 10 ml Documented by: GUADALUPE Vital Signs/Narrative: Vital Signs Temp Pulse Resp BP Pulse Ox 03/03/20 09:48 97.9 F 68 18 107/63 94 03/03/20 08:21 93 Medical Necessity - Tobacco Use Smoking Status: Former smoker Tobacco Use: Non-smoker Assessment/Plan All Active Problems Hypoxia (Acute) COVID-19 (Acute) Lactic acid acidosis (Acute) Leucocytosis (Acute) 1. Acute hypoxic respiratory failure secondary to acute COVID-19 bilateral pneumonia: Patient is still on 5 L of oxygen. On IV remdesivir. Stop date on 03/02/2020. Continue with breathing treatments, IV steroids, encourage use of incentive spirometer. PEP. Wean off oxygen for SPO2 more than 94%. D-dimer elevated 0.84. On Lovenox 30 mg subcu twice daily 02/27: Remdesivir is started on 02/26. On Decadron. Leukocytosis, but lymphocyte normal 23.4% 02/28: Continue remdesivir. Patient on 10 to 11 L of oxygen. Leukocytosis 19,000. Thrombocytosis 146,000 secondary to acute COVID-19 pneumonia. Mild elevated ALT and AST probably secondary to acute COVID-19 infection or DILI from remdesivir. 03/01: 1 dose of Lasix 40 mg IV given. Leukocytosis, fluctuates between 19,000-22,000. No definite trend. Hypoxia and tachypnea worsened. On AIR VO. Liver tests, transaminases very slow trend of improvement almost plateaued.. 03/02: Leukocytosis present. WBC count 24.2 thousand. Sodium 135. BUN 19. Mild decrease in sodium and BUN elevation from Lasix given yesterday. Follow-up labs 03/03: Slight improvement in leukocytosis. Electrolytes within normal limit. BUN 21. Liver test within normal limit except albumin 2.5. The patient has increasing platelets increasing now 492 511 and 526 K probably due to COVID-19 infection. It is unable to determine thrombocytosis is directly related to hypercoagulable state in COVID-19 pneumonia. 2. Acute COVID-19 with hypoxia, Patient respiratory status is currently stable on AIRVO, 60% FiO2 3. Lactic acidosis secondary to hypoxia 4. DVT PPx- Lovenox SC Microbiology Past 72 Hours 02/26/20 10:50 Blood Culture (Wb) - Anticubital Left Blood Culture - Final No growth in 5 days. 02/26/20 10:50 Blood Culture (Wb) - Left Hand Blood Culture - Final No growth in 5 days. Laboratory Results 03/03/20 05:45: WBC 21.7 H, RBC 4.88, Hgb 14.6, Hct 45.2, MCV 92.6, MCH 29.9, MCHC 32.3, RDW Std Deviation 41.7, RDW Coeff of Soumya 12.1, Plt Count 526 H, MPV 10.2 03/03/20 05:45: Sodium 137, Potassium 4.2, Chloride 101, Carbon Dioxide 28.0, Anion Gap 8, BUN 21 H, Creatinine 0.74, Estim Creat Clear Calc 117.97, Est GFR (MDRD) Af Amer 140, Est GFR (MDRD) Non-Af 116, BUN/Creatinine Ratio 28.5 H, Glucose 75, Calcium 8.8, Total Bilirubin 0.60, AST 25, ALT 49, Alkaline Phosphatase 82, Total Protein 6.7, Albumin 2.5 L, Globulin 4.2, Albumin/Globulin Ratio 0.6 L Clinical Impression(s) from Imaging Studies Chest X-Ray 02/26/20 11:11 IMPRESSION: Worsening bilateral pneumonia. Electronically Signed: Ernst Fuentes MD at 11:43 EST Tel , Service support , Chest CTA 02/26/20 18:50 IMPRESSION: No demonstrated pulmonary embolism or arterial dissection. Bilateral diffuse pulmonary infiltrates. Mild mediastinal adenopathy. Small hiatal hernia. Electronically Signed: Castro Cordon DO at 20:43 EST Tel [phone], Service support , Inpatient E&M: [id number] [facility] Hosp L2
--- NOTE | 2020-03-03 12:38 | CPS ---
patient on AIRVO
[2020-03-04 02:55] VITALS: PULSE 64; O2SAT 94
--- NOTE | 2020-03-04 03:10 | CPS ---
Pt.'s liter flow titrated to 45L; wean pt.'s oxygen demands
[2020-03-04 04:00] VITALS: BP 119/76; PULSE 63; RESP 18; TEMP 36.2; O2SAT 92
[2020-03-04 07:27] VITALS: O2SAT 91
--- NOTE | 2020-03-04 08:39 | PCM.PN.PUL ---
Patient Problems: Active and Suspected Problems Hypoxia (Acute) COVID-19 (Acute) Lactic acid acidosis (Acute) Leucocytosis (Acute) Subjective: The patient was seen and examined at the bedside this morning. Events from the last 24 hours have been reviewed. The patient is currently afebrile, hemodynamically stable and maintaining appropriate oxygen saturations on Airvo heated high flow with an FiO2 requirement of 45% and flow rate of 50 L/min. The patient has completed a treatment course of remdesivir. He remains on Decadron and Lovenox. The patient continues to report feeling better, but still has a residual nonproductive cough. Objective: The patient's most recent lab work, culture data and imaging studies have all been personally reviewed. Coronavirus PCR was positive on February 25. - Physical Exam Vitals/I&O's: Vital Signs Temp Pulse Resp BP Pulse Ox 97.1 F L 63 18 119/76 91 03/04/20 04:00 03/04/20 04:00 03/04/20 04:00 03/04/20 04:00 03/04/20 07:27 Oxygen Flow Rate (L/min) 50 Oxygen Delivery Method Airvo Weight: 216 lb 0.002 oz Body Mass Index (BMI) 29.2 Intake and Output for Last 24 Hours 03/02/20 03/03/20 03/04/20 23:59 23:59 23:59 Intake Total 900 / 900 1125 / 1125 Output Total 5225 / 5225 950 / 1800 1500 / 1500 Balance -4325 / -4325 -950 / -1125 -375 / -375 General: Alert, Oriented x3, Cooperative, No apparent distress HEENT: Atraumatic, PERRLA, Normocephalic Oral: Moist Mucosa, No Gingival or Mucosal Lesions/ Ulcerations Neck: Supple, No Nodes, Trachea Midline Lungs: No rhonchi, No wheeze, No rales, Diminished Cardiovascular: Regular rate, Regular Rhythm, No murmurs Abdomen: Bowel Sounds Present, Soft, Non Tender Extremities: No clubbing, No cyanosis, No edema Skin: No breakdown Musculoskeletal: No Tenderness to Palpation of Joints or Extremities Lymphatic: No Cervical, Supraclavicular, or Inguinal Adenopathy Neurological: Cranial nerves II-XII grossly intact, Neuro grossly intact Psych/Mental Status: Alert and oriented to time, place, person, mood and affect Labs (Last 48 Hours) 03/03/20 03/03/20 05:45 05:45 WBC 21.7 H RBC 4.88 Hgb 14.6 Hct 45.2 MCV 92.6 MCH 29.9 MCHC 32.3 RDW Std Deviation 41.7 RDW Coeff of Soumya 12.1 Plt Count 526 H MPV 10.2 Sodium 137 Potassium 4.2 Chloride 101 Carbon Dioxide 28.0 Anion Gap 8 BUN 21 H Creatinine 0.74 Estim Creat Clear Calc 117.97 Est GFR (MDRD) Af Amer 140 Est GFR (MDRD) Non-Af 116 BUN/Creatinine Ratio 28.5 H Glucose 75 Calcium 8.8 Total Bilirubin 0.60 AST 25 ALT 49 Alkaline Phosphatase 82 Total Protein 6.7 Albumin 2.5 L Globulin 4.2 Albumin/Globulin Ratio 0.6 L Microbiology 02/26/20 10:50 Blood Culture (Wb) - Anticubital Left Blood Culture - Final No growth in 5 days. 02/26/20 10:50 Blood Culture (Wb) - Left Hand Blood Culture - Final No growth in 5 days. Clinical Impression(s) from Imaging Studies Chest X-Ray 02/26/20 11:11 IMPRESSION: Worsening bilateral pneumonia. Electronically Signed: Ernst Fuentes MD at 11:43 EST Tel , Service support , Chest CTA 02/26/20 18:50 IMPRESSION: No demonstrated pulmonary embolism or arterial dissection. Bilateral diffuse pulmonary infiltrates. Mild mediastinal adenopathy. Small hiatal hernia. Electronically Signed: Castro Cordon DO at 20:43 EST Tel [phone], Service support , Current Medications Acetaminophen (Acetaminophen 325 Mg Tablet) 650 mg PO Q6H PRN PRN PRN Reason: Pain Score 1-10/Temp > 100.7 F Last Admin: 02/27/20 00:22 Dose: 650 mg Documented by: Al Hydroxide/Mg Hydroxide (Mag Hydrox/Al Hydrox/Simeth 30 Ml Udc) 30 ml PO Q6H PRN PRN PRN Reason: Gastric Burning Dexamethasone (Dexamethasone 4 Mg Tablet) 6 mg PO DAILY [facility] Stop: 03/06/20 10:01 Last Admin: 03/03/20 09:52 Dose: 6 mg Documented by: Enoxaparin Sodium (Enoxaparin 40 Mg/0.4 Ml Syringe) 40 mg SC BID [facility] Last Admin: 03/03/20 21:06 Dose: 40 mg Documented by: Sodium Chloride () 250 mls @ 15 mls/hr IV .[id number] PRN PRN Reason: Saline Flush Sodium Chloride () 250 mls @ 15 mls/hr IV .[id number] PRN PRN Reason: Additional IVPB Infusion Ondansetron HCl (Ondansetron 4 Mg/2 Ml Vial) 4 mg IV Q8H PRN PRN PRN Reason: NAUSEA/VOMITING Psyllium Hydrophilic Mucilloid (Psyllium 1 Packet) 1 packet PO DAILY PRN PRN PRN Reason: Constipation Senna/Docusate Sodium (Senna/Docusate Sodium 1 Tablet) 2 tablet PO BID PRN PRN PRN Reason: Constipation Sodium Chloride (0.9% Saline Lock 10 Ml Syringe) 10 - 40 ml IV UD PRN PRN Reason: SALINE FLUSH Last Admin: 03/02/20 11:29 Dose: 10 ml Documented by: Medical Necessity - Tobacco Use Smoking Status: Former smoker Tobacco Use: Non-smoker Assessment/Plan All Active Problems Hypoxia (Acute) COVID-19 (Acute) Lactic acid acidosis (Acute) Leucocytosis (Acute) RECOMMENDATIONS: 1. Wean supplemental oxygen to maintain saturations at or above 90%. 2. Continue Decadron 6 mg daily x10 days. 3. Continue Lovenox as ordered. 4. Encourage incentive spirometer use and mobilize patient as tolerated. IMPRESSIONS: 1. Acute hypoxemic respiratory failure secondary to COVID-19 pneumonia Plan to continue current supportive measures with supplemental oxygen to maintain saturations at or above 90%. The patient has completed his treatment course of remdesivir and remains on Decadron. Continue Lovenox for DVT prophylaxis as ordered. Encourage incentive spirometer use and mobilize patient as tolerated. Continue attempts at gentle diuresis as tolerated by hemodynamics and renal function. This note was generated with [employer] software. It may contain incorrect words, spelling, and punctuation that were not noted in checking the note before signing. Inpatient E&M: [id number] Subs Hosp L2
[2020-03-04 09:34] VITALS: BP 116/66; PULSE 70; RESP 18; TEMP 36.6; O2SAT 91
[2020-03-04] MEDS: Furosemide 40 MG/4 ML Vial IV (09:45)
[2020-03-04] MEDS: dexAMETHasone 4 MG Tablet 6 MG PO (09:45)
[2020-03-04] MEDS: Enoxaparin 40 MG/0.4 ML Syringe SC ×2 (09:45→20:46)
--- NOTE | 2020-03-04 11:53 | PCM.PN.HOSP ---
Patient Problems: Active and Suspected Problems Hypoxia (Acute) COVID-19 (Acute) Lactic acid acidosis (Acute) Leucocytosis (Acute) Reason for Visit: Follow-up for acute hypoxic respiratory failure due to bilateral COVID-19 pneumonia Objective: Patient is still on 7 L of high flow oxygen. Blood pressure is controlled. No fever. Patient has been mild dry cough. Denies chest congestion Physical exam General: Alert, Oriented x3, Cooperative HEENT: Atraumatic, PERRLA, EOMI, Normocephalic Oral: No Gingival or Mucosal Lesions/ Ulcerations Neck: Supple, No JVD, Negative Carotid Bruits Lungs: Air entry diminished in bilateral lung bases. No crepitation/rhonchi Cardiovascular: Regular rate, Regular Rhythm, Normal S1, Normal S2, No murmurs Abdomen: Bowel Sounds Present, Soft, Non Tender, Non-Distended : No renal angle tenderness. No suprapubic tenderness. Extremities: No edema, Capillary Refill Less than 3 Seconds Skin: No rashes, No breakdown Musculoskeletal: No Tenderness to Palpation of Joints or Extremities Neurological: Cranial nerves II-XII grossly intact, Deep Tendon Reflexes 2+/4 and Symmetrical, Neuro grossly intact Psych/Mental Status: Normal Affect, Appropriate. Vitals/I&O's: Vital Signs Temp Pulse Resp BP Pulse Ox 97.8 F 70 18 116/66 91 03/04/20 09:34 03/04/20 09:34 03/04/20 09:34 03/04/20 09:34 03/04/20 09:34 Oxygen Flow Rate (L/min) 7 Oxygen Delivery Method Nasal Cannula Weight: 216 lb 0.002 oz Body Mass Index (BMI) 29.2 Intake and Output for Last 24 Hours 03/02/20 03/03/20 03/04/20 23:59 23:59 23:59 Intake Total 900 / 900 1125 / 1125 Output Total 5225 / 5225 950 / 1800 1500 / 1500 Balance -4325 / -4325 -950 / -1125 -375 / -375 Microbiology Past 72 Hours 02/26/20 10:50 Blood Culture (Wb) - Anticubital Left Blood Culture - Final No growth in 5 days. 02/26/20 10:50 Blood Culture (Wb) - Left Hand Blood Culture - Final No growth in 5 days. Current Medications Acetaminophen (Acetaminophen 325 Mg Tablet) 650 mg PO Q6H PRN PRN PRN Reason: Pain Score 1-10/Temp > 100.7 F Last Admin: 02/27/20 00:22 Dose: 650 mg Documented by: Al Hydroxide/Mg Hydroxide (Mag Hydrox/Al Hydrox/Simeth 30 Ml Udc) 30 ml PO Q6H PRN PRN PRN Reason: Gastric Burning Dexamethasone (Dexamethasone 4 Mg Tablet) 6 mg PO DAILY [facility] Stop: 03/06/20 10:01 Last Admin: 03/04/20 09:45 Dose: 6 mg Documented by: Enoxaparin Sodium (Enoxaparin 40 Mg/0.4 Ml Syringe) 40 mg SC BID [facility] Last Admin: 03/04/20 09:45 Dose: 40 mg Documented by: Sodium Chloride () 250 mls @ 15 mls/hr IV .[id number] PRN PRN Reason: Saline Flush Sodium Chloride () 250 mls @ 15 mls/hr IV .[id number] PRN PRN Reason: Additional IVPB Infusion Ondansetron HCl (Ondansetron 4 Mg/2 Ml Vial) 4 mg IV Q8H PRN PRN PRN Reason: NAUSEA/VOMITING Psyllium Hydrophilic Mucilloid (Psyllium 1 Packet) 1 packet PO DAILY PRN PRN PRN Reason: Constipation Senna/Docusate Sodium (Senna/Docusate Sodium 1 Tablet) 2 tablet PO BID PRN PRN PRN Reason: Constipation Sodium Chloride (0.9% Saline Lock 10 Ml Syringe) 10 - 40 ml IV UD PRN PRN Reason: SALINE FLUSH Last Admin: 03/02/20 11:29 Dose: 10 ml Documented by: STROKE Vital Signs/Narrative: Vital Signs Temp Pulse Resp BP Pulse Ox 03/04/20 09:34 97.8 F 70 18 116/66 91 Medical Necessity - Tobacco Use Smoking Status: Former smoker Tobacco Use: Non-smoker Assessment/Plan All Active Problems Hypoxia (Acute) COVID-19 (Acute) Lactic acid acidosis (Acute) Leucocytosis (Acute) 1. Acute hypoxic respiratory failure secondary to acute COVID-19 bilateral pneumonia: Patient is still on 5 L of oxygen. On IV remdesivir. Stop date on 03/02/2020. Continue with breathing treatments, IV steroids, encourage use of incentive spirometer. PEP. Wean off oxygen for SPO2 more than 94%. D-dimer elevated 0.84. On Lovenox 30 mg subcu twice daily 02/27: Remdesivir is started on 02/26. On Decadron. Leukocytosis, but lymphocyte normal 23.4% 02/28: Continue remdesivir. Patient on 10 to 11 L of oxygen. Leukocytosis 19,000. Thrombocytosis 146,000 secondary to acute COVID-19 pneumonia. Mild elevated ALT and AST probably secondary to acute COVID-19 infection or DILI from remdesivir. 03/01: 1 dose of Lasix 40 mg IV given. Leukocytosis, fluctuates between 19,000-22,000. No definite trend. Hypoxia and tachypnea worsened. On AIR VO. Liver tests, transaminases very slow trend of improvement almost plateaued.. 03/02: Leukocytosis present. WBC count 24.2 thousand. Sodium 135. BUN 19. Mild decrease in sodium and BUN elevation from Lasix given yesterday. Follow-up labs 03/03: Slight improvement in leukocytosis. Electrolytes within normal limit. BUN 21. Liver test within normal limit except albumin 2.5. 03/04: Continue high flow oxygen. Oxygen requirement is decreasing. The patient has increasing platelets increasing now 492 511 and 526 K probably due to COVID-19 infection. It is unable to determine thrombocytosis is directly related to hypercoagulable state in COVID-19 pneumonia. 2. Acute COVID-19 with hypoxia, Patient respiratory status is currently stable on AIRVO, 60% FiO2 3. Lactic acidosis secondary to hypoxia 4. DVT PPx- Lovenox SC Microbiology Past 72 Hours 02/26/20 10:50 Blood Culture (Wb) - Anticubital Left Blood Culture - Final No growth in 5 days. 02/26/20 10:50 Blood Culture (Wb) - Left Hand Blood Culture - Final No growth in 5 days. Laboratory Results 03/03/20 05:45: WBC 21.7 H, RBC 4.88, Hgb 14.6, Hct 45.2, MCV 92.6, MCH 29.9, MCHC 32.3, RDW Std Deviation 41.7, RDW Coeff of Soumya 12.1, Plt Count 526 H, MPV 10.2 03/03/20 05:45: Sodium 137, Potassium 4.2, Chloride 101, Carbon Dioxide 28.0, Anion Gap 8, BUN 21 H, Creatinine 0.74, Estim Creat Clear Calc 117.97, Est GFR (MDRD) Af Amer 140, Est GFR (MDRD) Non-Af 116, BUN/Creatinine Ratio 28.5 H, Glucose 75, Calcium 8.8, Total Bilirubin 0.60, AST 25, ALT 49, Alkaline Phosphatase 82, Total Protein 6.7, Albumin 2.5 L, Globulin 4.2, Albumin/Globulin Ratio 0.6 L Clinical Impression(s) from Imaging Studies Chest X-Ray 02/26/20 11:11 IMPRESSION: Worsening bilateral pneumonia. Electronically Signed: Ernst Fuentes MD at 11:43 EST Tel , Service support , Chest CTA 02/26/20 18:50 IMPRESSION: No demonstrated pulmonary embolism or arterial dissection. Bilateral diffuse pulmonary infiltrates. Mild mediastinal adenopathy. Small hiatal hernia. Electronically Signed: Castro Cordon DO at 20:43 EST Tel [phone], Service support , Inpatient E&M: [id number] Subs Hosp L2
--- NOTE | 2020-03-04 14:44 | CPS ---
AIRVO on standby
[2020-03-04 14:50] VITALS: BP 115/65; PULSE 73; RESP 18; TEMP 36.7; O2SAT 93
[2020-03-04 20:40] VITALS: BP 113/66; PULSE 67; RESP 17; TEMP 36.6; O2SAT 94
[2020-03-05 03:43] VITALS: BP 105/70; PULSE 61; RESP 18; TEMP 36.6; O2SAT 94
--- NOTE | 2020-03-05 07:21 | PCM.PN.HOSP ---
Patient Problems: Active and Suspected Problems Hypoxia (Acute) COVID-19 (Acute) Lactic acid acidosis (Acute) Leucocytosis (Acute) Reason for Visit: Acute hypoxic respiratory failure secondary to COVID-19 pneumonia Objective: Patient did not had fever or chills. Mild cough with clear sputum. Still on 5 L of oxygen. Patient feels mild improvement in shortness of breath. Physical exam General: Alert, Oriented x3, Cooperative HEENT: Atraumatic, PERRLA, EOMI, Normocephalic Oral: No Gingival or Mucosal Lesions/ Ulcerations Neck: Supple, No JVD, Negative Carotid Bruits Lungs: Air entry diminished in bilateral lung bases. No crepitation/rhonchi Cardiovascular: Regular rate, Regular Rhythm, Normal S1, Normal S2, No murmurs Abdomen: Bowel Sounds Present, Soft, Non Tender, Non-Distended : No renal angle tenderness. No suprapubic tenderness. Extremities: No edema, Capillary Refill Less than 3 Seconds Skin: No rashes, No breakdown Musculoskeletal: No Tenderness to Palpation of Joints or Extremities Neurological: Cranial nerves II-XII grossly intact, Deep Tendon Reflexes 2+/4 and Symmetrical, Neuro grossly intact Psych/Mental Status: Normal Affect, Appropriate. . Patient feels Vitals/I&O's: Vital Signs Temp Pulse Resp BP Pulse Ox 97.8 F 61 18 105/70 94 03/05/20 03:43 03/05/20 03:43 03/05/20 03:43 03/05/20 03:43 03/05/20 03:43 Oxygen Flow Rate (L/min) 5 Oxygen Delivery Method Nasal Cannula Weight: 216 lb 0.002 oz Body Mass Index (BMI) 29.2 Intake and Output for Last 24 Hours 03/03/20 03/04/20 03/05/20 23:59 23:59 23:59 Intake Total 1125 / 1125 900 / 900 Output Total 950 / 1800 2800 / 2800 950 / 950 Balance -950 / -1125 -1675 / -1675 -50 / -50 Microbiology Past 72 Hours 02/26/20 10:50 Blood Culture (Wb) - Anticubital Left Blood Culture - Final No growth in 5 days. 02/26/20 10:50 Blood Culture (Wb) - Left Hand Blood Culture - Final No growth in 5 days. Current Medications Acetaminophen (Acetaminophen 325 Mg Tablet) 650 mg PO Q6H PRN PRN PRN Reason: Pain Score 1-10/Temp > 100.7 F Last Admin: 02/27/20 00:22 Dose: 650 mg Documented by: Al Hydroxide/Mg Hydroxide (Mag Hydrox/Al Hydrox/Simeth 30 Ml Udc) 30 ml PO Q6H PRN PRN PRN Reason: Gastric Burning Dexamethasone (Dexamethasone 4 Mg Tablet) 6 mg PO DAILY [facility] Stop: 03/06/20 10:01 Last Admin: 03/04/20 09:45 Dose: 6 mg Documented by: Enoxaparin Sodium (Enoxaparin 40 Mg/0.4 Ml Syringe) 40 mg SC BID [facility] Last Admin: 03/04/20 20:46 Dose: 40 mg Documented by: Sodium Chloride () 250 mls @ 15 mls/hr IV .[id number] PRN PRN Reason: Saline Flush Sodium Chloride () 250 mls @ 15 mls/hr IV .[id number] PRN PRN Reason: Additional IVPB Infusion Ondansetron HCl (Ondansetron 4 Mg/2 Ml Vial) 4 mg IV Q8H PRN PRN PRN Reason: NAUSEA/VOMITING Psyllium Hydrophilic Mucilloid (Psyllium 1 Packet) 1 packet PO DAILY PRN PRN PRN Reason: Constipation Senna/Docusate Sodium (Senna/Docusate Sodium 1 Tablet) 2 tablet PO BID PRN PRN PRN Reason: Constipation Sodium Chloride (0.9% Saline Lock 10 Ml Syringe) 10 - 40 ml IV UD PRN PRN Reason: SALINE FLUSH Last Admin: 03/02/20 11:29 Dose: 10 ml Documented by: STROKE Vital Signs/Narrative: Vital Signs Temp Pulse Resp BP Pulse Ox 03/05/20 03:43 97.8 F 61 18 105/70 94 Medical Necessity - Tobacco Use Smoking Status: Former smoker Tobacco Use: Non-smoker Assessment/Plan All Active Problems Hypoxia (Acute) COVID-19 (Acute) Lactic acid acidosis (Acute) Leucocytosis (Acute) 1. Acute hypoxic respiratory failure secondary to acute COVID-19 bilateral pneumonia: Patient is still on 5 L of oxygen. On IV remdesivir. Stop date on 03/02/2020. Continue with breathing treatments, IV steroids, encourage use of incentive spirometer. PEP. Wean off oxygen for SPO2 more than 94%. D-dimer elevated 0.84. On Lovenox 30 mg subcu twice daily 02/27: Remdesivir is started on 02/26. On Decadron. Leukocytosis, but lymphocyte normal 23.4% 02/28: Continue remdesivir. Patient on 10 to 11 L of oxygen. Leukocytosis 19,000. Thrombocytosis 146,000 secondary to acute COVID-19 pneumonia. Mild elevated ALT and AST probably secondary to acute COVID-19 infection or DILI from remdesivir. 03/01: 1 dose of Lasix 40 mg IV given. Leukocytosis, fluctuates between 19,000-22,000. No definite trend. Hypoxia and tachypnea worsened. On AIR VO. Liver tests, transaminases very slow trend of improvement almost plateaued.. 03/02: Leukocytosis present. WBC count 24.2 thousand. Sodium 135. BUN 19. Mild decrease in sodium and BUN elevation from Lasix given yesterday. Follow-up labs 03/03: Slight improvement in leukocytosis. Electrolytes within normal limit. BUN 21. Liver test within normal limit except albumin 2.5. 03/04: Continue high flow oxygen. Oxygen requirement is decreasing. The patient has increasing platelets increasing now 492 511 and 526 K probably due to COVID-19 infection. It is unable to determine thrombocytosis is directly related to hypercoagulable state in COVID-19 pneumonia. 03/05: On 5 L of oxygen. Leukocytosis probably secondary to Decadron. Thrombocytosis possibly related to COVID-19 pneumonia/infection. 2. Acute COVID-19 pneumonia with hypoxia, Patient respiratory status is Stable 3. Lactic acidosis secondary to hypoxia 4. DVT PPx- Lovenox SC Microbiology Past 72 Hours 02/26/20 10:50 Blood Culture (Wb) - Anticubital Left Blood Culture - Final No growth in 5 days. 02/26/20 10:50 Blood Culture (Wb) - Left Hand Blood Culture - Final No growth in 5 days. Microbiology Past 72 Hours 02/26/20 10:50 Blood Culture (Wb) - Anticubital Left Blood Culture - Final No growth in 5 days. 02/26/20 10:50 Blood Culture (Wb) - Left Hand Blood Culture - Final No growth in 5 days. Clinical Impression(s) from Imaging Studies Chest X-Ray 02/26/20 11:11 IMPRESSION: Worsening bilateral pneumonia. Electronically Signed: Ernst Fuentes MD at 11:43 EST Tel , Service support , Chest CTA 02/26/20 18:50 IMPRESSION: No demonstrated pulmonary embolism or arterial dissection. Bilateral diffuse pulmonary infiltrates. Mild mediastinal adenopathy. Small hiatal hernia. Electronically Signed: Castro Cordon DO at 20:43 EST Tel [phone], Service support , Inpatient E&M: [id number] Subs Hosp L2
[2020-03-05 09:13] VITALS: BP 118/63; PULSE 75; RESP 18; TEMP 36.2; O2SAT 94
[2020-03-05] MEDS: Enoxaparin 40 MG/0.4 ML Syringe SC ×2 (09:16→20:40)
[2020-03-05] MEDS: dexAMETHasone 4 MG Tablet 6 MG PO (09:16)
[2020-03-05 11:44] VITALS: O2SAT 94
[2020-03-05 12:24] VITALS: BP 116/69; PULSE 74; RESP 18; TEMP 36.2; O2SAT 92
--- NOTE | 2020-03-05 15:53 | PCM.PN.PUL ---
Patient Problems: Active and Suspected Problems Hypoxia (Acute) COVID-19 (Acute) Lactic acid acidosis (Acute) Leucocytosis (Acute) Subjective: Patient did well overnight. No acute issues were reported. Patient states he feels subjectively improved compared to previous. Patient has been tolerating nasal cannula oxygen over the last 24 hours. Patient has been able to ambulate to the bathroom with some difficulty. Patient does report that he has access to electricity at home through batteries and solar power. - Physical Exam Vitals/I&O's: Vital Signs Temp Pulse Resp BP Pulse Ox 36.2 C L 74 18 116/69 92 03/05/20 12:24 03/05/20 12:24 03/05/20 12:24 03/05/20 12:24 03/05/20 12:24 Oxygen Flow Rate (L/min) 5 Oxygen Delivery Method Nasal Cannula Weight: 97.976 kg Body Mass Index (BMI) 29.2 Intake and Output for Last 24 Hours 03/03/20 03/04/20 03/05/20 23:59 23:59 23:59 Intake Total 1125 / 1125 1330 / 1330 Output Total 950 / 1800 2800 / 2800 1550 / 1550 Balance -950 / -1125 -1675 / -1675 -220 / -220 General: Alert, Oriented x3, Cooperative, No apparent distress, Well developed, Well nourished, - - Speaking in full sentences. HEENT: Atraumatic, PERRLA, EOMI, Normocephalic, - - No scleral icterus or injection noted Oral: Moist Mucosa, No Gingival or Mucosal Lesions/ Ulcerations Neck: Supple, No JVD, No Nodes, Trachea Midline Lungs: No rhonchi, No wheeze, No rales, Diminished, - - Symmetric expansion. No dullness to percussion. Cardiovascular: Regular rate, Regular Rhythm, Normal S1, Normal S2, No murmurs, No rub noted, No Gallop Abdomen: Bowel Sounds Present, Soft, Non Tender, Non-Distended Extremities: No clubbing, No cyanosis, No edema Skin: No rashes, No breakdown Musculoskeletal: No Tenderness to Palpation of Joints or Extremities Lymphatic: No Cervical, Supraclavicular, or Inguinal Adenopathy Neurological: Cranial nerves II-XII grossly intact, Neuro grossly intact, Motor Exam 5/5 strength throughout Psych/Mental Status: Alert and oriented to time, place, person, mood and affect Microbiology Past 72 Hours 02/26/20 10:50 Blood Culture (Wb) - Anticubital Left Blood Culture - Final No growth in 5 days. 02/26/20 10:50 Blood Culture (Wb) - Left Hand Blood Culture - Final No growth in 5 days. Current Medications Acetaminophen (Acetaminophen 325 Mg Tablet) 650 mg PO Q6H PRN PRN PRN Reason: Pain Score 1-10/Temp > 100.7 F Last Admin: 02/27/20 00:22 Dose: 650 mg Documented by: Al Hydroxide/Mg Hydroxide (Mag Hydrox/Al Hydrox/Simeth 30 Ml Udc) 30 ml PO Q6H PRN PRN PRN Reason: Gastric Burning Dexamethasone (Dexamethasone 4 Mg Tablet) 6 mg PO DAILY [facility] Stop: 03/06/20 10:01 Last Admin: 03/05/20 09:16 Dose: 6 mg Documented by: Enoxaparin Sodium (Enoxaparin 40 Mg/0.4 Ml Syringe) 40 mg SC BID [facility] Last Admin: 03/05/20 09:16 Dose: 40 mg Documented by: Sodium Chloride () 250 mls @ 15 mls/hr IV .[id number] PRN PRN Reason: Saline Flush Sodium Chloride () 250 mls @ 15 mls/hr IV .[id number] PRN PRN Reason: Additional IVPB Infusion Ondansetron HCl (Ondansetron 4 Mg/2 Ml Vial) 4 mg IV Q8H PRN PRN PRN Reason: NAUSEA/VOMITING Psyllium Hydrophilic Mucilloid (Psyllium 1 Packet) 1 packet PO DAILY PRN PRN PRN Reason: Constipation Senna/Docusate Sodium (Senna/Docusate Sodium 1 Tablet) 2 tablet PO BID PRN PRN PRN Reason: Constipation Sodium Chloride (0.9% Saline Lock 10 Ml Syringe) 10 - 40 ml IV UD PRN PRN Reason: SALINE FLUSH Last Admin: 03/02/20 11:29 Dose: 10 ml Documented by: Medical Necessity - Tobacco Use Smoking Status: Former smoker Tobacco Use: Non-smoker Assessment/Plan All Active Problems Hypoxia (Acute) COVID-19 (Acute) Lactic acid acidosis (Acute) Leucocytosis (Acute) RECOMMENDATIONS: 1. Wean supplemental oxygen to maintain saturations at or above 90%. 2. Continue Decadron 6 mg daily x10 days. 3. Continue Lovenox as ordered. 4. Encourage incentive spirometer use and mobilize patient as tolerated. 5. Anticipate walking oximetry when patient able to tolerate 4 L nasal cannula at rest IMPRESSIONS: 1. Acute hypoxemic respiratory failure secondary to COVID-19 pneumonia Plan to continue current supportive measures with supplemental oxygen to maintain saturations at or above 90%. The patient has completed his treatment course of remdesivir and remains on Decadron. Continue Lovenox for DVT prophylaxis as ordered. Encourage incentive spirometer use and mobilize patient as tolerated. Continue attempts at gentle diuresis as tolerated by hemodynamics and renal function. Patient appears to be improving on current plan. Anticipate evaluation for home oxygen when patient able to tolerate 4 L at rest. Inpatient E&M: [id number] Subs Hosp L2
[2020-03-05 16:57] VITALS: BP 121/72; PULSE 69; RESP 18; TEMP 37; O2SAT 95
[2020-03-05 20:35] VITALS: BP 122/74; PULSE 71; RESP 22; TEMP 36.7; O2SAT 96
[2020-03-06] VITALS (8 sets, daily range): BP systolic 110–130; BP diastolic 66–76; PULSE 62–78; RESP 16–18; TEMP 36.2–36.6; O2SAT 75–95
--- NOTE | 2020-03-06 07:45 | PCM.PN.HOSP ---
Patient Problems: Active and Suspected Problems Hypoxia (Acute) COVID-19 (Acute) Lactic acid acidosis (Acute) Leucocytosis (Acute) Reason for Visit: Follow-up for acute hypoxic respiratory failure due to bilateral COVID-19 pneumonia Objective: Patient is still on 5 L of oxygen. No fever. Patient still has mild cough. On 5 L of oxygen at rest. Pulse ox dropped to 88% on ambulation on 5 L of oxygen Physical exam General: Alert, Oriented x3, Cooperative HEENT: Atraumatic, PERRLA, EOMI, Normocephalic Oral: No Gingival or Mucosal Lesions/ Ulcerations Neck: Supple, No JVD, Negative Carotid Bruits Lungs: Air entry diminished in bilateral lung bases. No crepitation/rhonchi Cardiovascular: Regular rate, Regular Rhythm, Normal S1, Normal S2, No murmurs Abdomen: Bowel Sounds Present, Soft, Non Tender, Non-Distended : No renal angle tenderness. No suprapubic tenderness. Extremities: No edema, Capillary Refill Less than 3 Seconds Skin: No rashes, No breakdown Musculoskeletal: No Tenderness to Palpation of Joints or Extremities Neurological: Cranial nerves II-XII grossly intact, Deep Tendon Reflexes 2+/4 and Symmetrical, Neuro grossly intact Psych/Mental Status: Normal Affect, Appropriate. Vitals/I&O's: Vital Signs Temp Pulse Resp BP Pulse Ox 97.2 F L 62 16 110/70 94 03/06/20 03:03 03/06/20 03:03 03/06/20 03:03 03/06/20 03:03 03/06/20 03:03 Oxygen Flow Rate (L/min) 5 Oxygen Delivery Method Nasal Cannula Weight: 216 lb 0.002 oz Body Mass Index (BMI) 29.2 Intake and Output for Last 24 Hours 03/04/20 03/05/20 03/06/20 23:59 23:59 23:59 Intake Total 1125 / 1125 1910 / 1910 40 / 40 Output Total 2800 / 2800 2150 / 2150 Balance -1675 / -1675 -240 / -240 40 / 40 Current Medications Acetaminophen (Acetaminophen 325 Mg Tablet) 650 mg PO Q6H PRN PRN PRN Reason: Pain Score 1-10/Temp > 100.7 F Last Admin: 02/27/20 00:22 Dose: 650 mg Documented by: Al Hydroxide/Mg Hydroxide (Mag Hydrox/Al Hydrox/Simeth 30 Ml Udc) 30 ml PO Q6H PRN PRN PRN Reason: Gastric Burning Dexamethasone (Dexamethasone 4 Mg Tablet) 6 mg PO DAILY COUNTS [facility]CLUDE 234 BEDS AT [facility] Stop: 03/06/20 10:01 Last Admin: 03/05/20 09:16 Dose: 6 mg Documented by: Enoxaparin Sodium (Enoxaparin 40 Mg/0.4 Ml Syringe) 40 mg SC BID COUNTS INCLUDE 234 BEDS AT THE [facility] Last Admin: 03/05/20 20:40 Dose: 40 mg Documented by: Sodium Chloride () 250 mls @ 15 mls/hr IV .[id number] PRN PRN Reason: Saline Flush Sodium Chloride () 250 mls @ 15 mls/hr IV .[id number] PRN PRN Reason: Additional IVPB Infusion Ondansetron HCl (Ondansetron 4 Mg/2 Ml Vial) 4 mg IV Q8H PRN PRN PRN Reason: NAUSEA/VOMITING Psyllium Hydrophilic Mucilloid (Psyllium 1 Packet) 1 packet PO DAILY PRN PRN PRN Reason: Constipation Senna/Docusate Sodium (Senna/Docusate Sodium 1 Tablet) 2 tablet PO BID PRN PRN PRN Reason: Constipation Sodium Chloride (0.9% Saline Lock 10 Ml Syringe) 10 - 40 ml IV UD PRN PRN Reason: SALINE FLUSH Last Admin: 03/02/20 11:29 Dose: 10 ml Documented by: Medical Necessity - Tobacco Use Smoking Status: Former smoker Tobacco Use: Non-smoker Assessment/Plan All Active Problems Hypoxia (Acute) COVID-19 (Acute) Lactic acid acidosis (Acute) Leucocytosis (Acute) 1. Acute hypoxic respiratory failure secondary to acute COVID-19 bilateral pneumonia: Patient is still on 5 L of oxygen. On IV remdesivir. Stop date on 03/02/2020. Continue with breathing treatments, IV steroids, encourage use of incentive spirometer. PEP. Wean off oxygen for SPO2 more than 94%. D-dimer elevated 0.84. On Lovenox 30 mg subcu twice daily 02/27: Remdesivir is started on 02/26. On Decadron. Leukocytosis, but lymphocyte normal 23.4% 02/28: Continue remdesivir. Patient on 10 to 11 L of oxygen. Leukocytosis 19,000. Thrombocytosis 146,000 secondary to acute COVID-19 pneumonia. Mild elevated ALT and AST probably secondary to acute COVID-19 infection or DILI from remdesivir. 03/01: 1 dose of Lasix 40 mg IV given. Leukocytosis, fluctuates between 19,000-22,000. No definite trend. Hypoxia and tachypnea worsened. On AIR VO. Liver tests, transaminases very slow trend of improvement almost plateaued.. 03/02: Leukocytosis present. WBC count 24.2 thousand. Sodium 135. BUN 19. Mild decrease in sodium and BUN elevation from Lasix given yesterday. Follow-up labs 03/03: Slight improvement in leukocytosis. Electrolytes within normal limit. BUN 21. Liver test within normal limit except albumin 2.5. 03/04: Continue high flow oxygen. Oxygen requirement is decreasing. The patient has increasing platelets increasing now 492 511 and 526 K probably due to COVID-19 infection. It is unable to determine thrombocytosis is directly related to hypercoagulable state in COVID-19 pneumonia. 03/05: On 5 L of oxygen. Leukocytosis probably secondary to Decadron. Thrombocytosis possibly related to COVID-19 pneumonia/infection. 03/06: Still on 5 L of oxygen at rest. Pulse ox dropped to 88% on walking on 5 L of oxygen. Leukocytosis, thrombocytosis platelet 543,000. CRP elevated 4.47. Albumin 2.6 2. Acute COVID-19 pneumonia with hypoxia, Patient respiratory status is Stable 3. Lactic acidosis secondary to hypoxia 4. DVT PPx- Lovenox SC Laboratory Results 03/06/20 09:05: WBC 23.9 H, RBC 4.94, Hgb 15.2, Hct 45.9, MCV 92.9, MCH 30.8, MCHC 33.1, RDW Std Deviation 41.3, RDW Coeff of Soumya 12.1, Plt Count 543 H, MPV 9.8, Immature Gran % (Auto) 1.400 H, Neut % (Auto) 51.7, Lymph % (Auto) 44.1 H, [place] % (Auto) 2.2, Eos % (Auto) 0.3, Baso % (Auto) 0.3, Absolute Neuts (auto) 12.4 H, Absolute Lymphs (auto) 10.53 H, Nucleated RBC % 0, Differential Comment COMMENT 03/06/20 09:05: Sodium 137, Potassium 3.5, Chloride 104, Carbon Dioxide 26.0, Anion Gap 7, BUN 18, Creatinine 0.87, Estim Creat Clear Calc 100.34, Est GFR (MDRD) Af Amer 116, Est GFR (MDRD) Non-Af 96, BUN/Creatinine Ratio 20.7 H, Glucose 191 H, Calcium 8.8, Magnesium 2.4, Total Bilirubin 0.80, AST 17, ALT 40, Alkaline Phosphatase 80, C-React Prot Ext Range 4.47 H, Total Protein 6.2 L, Albumin 2.6 L, Globulin 3.6, Albumin/Globulin Ratio 0.7 L Clinical Impression(s) from Imaging Studies Chest X-Ray 02/26/20 11:11 IMPRESSION: Worsening bilateral pneumonia. Electronically Signed: Ernst Fuentes MD at 11:43 EST Tel , Service support , Chest CTA 02/26/20 18:50 IMPRESSION: No demonstrated pulmonary embolism or arterial dissection. Bilateral diffuse pulmonary infiltrates. Mild mediastinal adenopathy. Small hiatal hernia. Electronically Signed: Castro Cordon DO at 20:43 EST Tel [phone], Service support , Inpatient E&M: [id number] [facility] Hosp L2
[2020-03-06] MEDS: dexAMETHasone 4 MG Tablet 6 MG PO (08:15)
[2020-03-06] MEDS: Enoxaparin 40 MG/0.4 ML Syringe SC ×2 (08:16→20:58)
--- NOTE | 2020-03-06 08:54 | PN_ITS ---
Patient Problems: Active and Suspected Problems Hypoxia (Acute) COVID-19 (Acute) Lactic acid acidosis (Acute) Leucocytosis (Acute) Subjective: Patient did well overnight. Patient feels subjectively unchanged compared to previous. Patient is still requiring significant nasal cannula oxygen to maintain saturations. Patient still has a periodic nonproductive cough. - Physical Exam Vitals/I&O's: Vital Signs Temp Pulse Resp BP Pulse Ox 36.2 C L 71 18 114/71 92 03/06/20 08:18 03/06/20 08:18 03/06/20 08:18 03/06/20 08:18 03/06/20 08:18 Oxygen Flow Rate (L/min) 5 Oxygen Delivery Method Nasal Cannula Weight: 97.976 kg Body Mass Index (BMI) 29.2 Intake and Output for Last 24 Hours 03/04/20 03/05/20 03/06/20 23:59 23:59 23:59 Intake Total 1125 / 1125 1910 / 1910 40 / 40 Output Total 2800 / 2800 2150 / 2150 Balance -1675 / -1675 -240 / -240 40 / 40 General: Alert, Oriented x3, Cooperative, No apparent distress, Well developed, Well nourished, - - Speaking in full sentences. HEENT: Atraumatic, PERRLA, EOMI, Normocephalic, - - No scleral icterus or injection noted Oral: Moist Mucosa, No Gingival or Mucosal Lesions/ Ulcerations Neck: Supple, No JVD, No Nodes, Trachea Midline Lungs: No rhonchi, No wheeze, No rales, Diminished, - - Symmetric expansion. No dullness to percussion Cardiovascular: Regular rate, Regular Rhythm, Normal S1, Normal S2, No murmurs, No rub noted, No Gallop Abdomen: Bowel Sounds Present, Soft, Non Tender, Non-Distended Extremities: No clubbing, No cyanosis, No edema, Capillary Refill Less than 3 Seconds Skin: No rashes, No breakdown Musculoskeletal: No Tenderness to Palpation of Joints or Extremities Lymphatic: No Cervical, Supraclavicular, or Inguinal Adenopathy Neurological: Cranial nerves II-XII grossly intact, Neuro grossly intact, Motor Exam 5/5 strength throughout Psych/Mental Status: Alert and oriented to time, place, person, mood and affect Current Medications Acetaminophen (Acetaminophen 325 Mg Tablet) 650 mg PO Q6H PRN PRN PRN Reason: Pain Score 1-10/Temp > 100.7 F Last Admin: 02/27/20 00:22 Dose: 650 mg Documented by: Al Hydroxide/Mg Hydroxide (Mag Hydrox/Al Hydrox/Simeth 30 Ml Udc) 30 ml PO Q6H PRN PRN PRN Reason: Gastric Burning Dexamethasone (Dexamethasone 4 Mg Tablet) 6 mg PO DAILY [facility] Stop: 03/06/20 10:01 Last Admin: 03/06/20 08:15 Dose: 6 mg Documented by: Enoxaparin Sodium (Enoxaparin 40 Mg/0.4 Ml Syringe) 40 mg SC BID [facility] Last Admin: 03/06/20 08:16 Dose: 40 mg Documented by: Sodium Chloride () 250 mls @ 15 mls/hr IV .[id number] PRN PRN Reason: Saline Flush Sodium Chloride () 250 mls @ 15 mls/hr IV .[id number] PRN PRN Reason: Additional IVPB Infusion Ondansetron HCl (Ondansetron 4 Mg/2 Ml Vial) 4 mg IV Q8H PRN PRN PRN Reason: NAUSEA/VOMITING Psyllium Hydrophilic Mucilloid (Psyllium 1 Packet) 1 packet PO DAILY PRN PRN PRN Reason: Constipation Senna/Docusate Sodium (Senna/Docusate Sodium 1 Tablet) 2 tablet PO BID PRN PRN PRN Reason: Constipation Sodium Chloride (0.9% Saline Lock 10 Ml Syringe) 10 - 40 ml IV UD PRN PRN Reason: SALINE FLUSH Last Admin: 03/02/20 11:29 Dose: 10 ml Documented by: Medical Necessity - Tobacco Use Smoking Status: Former smoker Tobacco Use: Non-smoker Assessment/Plan All Active Problems Hypoxia (Acute) COVID-19 (Acute) Lactic acid acidosis (Acute) Leucocytosis (Acute) RECOMMENDATIONS: 1. Wean supplemental oxygen to maintain saturations at or above 90%. 2. Complete Decadron 6 mg daily x10 days. 3. Continue Lovenox as ordered. 4. Encourage incentive spirometer use and mobilize patient as tolerated. 5. Check walking oximetry. Likely okay to discharge if tolerates 6 L or less with ambulation 6. Check BMP tomorrow to see if diuretics could be given IMPRESSIONS: 1. Acute hypoxemic respiratory failure secondary to COVID-19 pneumonia Plan to continue current supportive measures with supplemental oxygen to maintain saturations at or above 90%. The patient has completed his treatment course of remdesivir and remains on Decadron. Continue Lovenox for DVT prophylaxis as ordered. Encourage incentive spirometer use and mobilize patient as tolerated. Patient appears to be improving on current plan. Anticipate evaluation for home oxygen when patient able to tolerate 4 L at rest. Will check renal function tomorrow to see if patient can tolerate another dose of Lasix. Inpatient E&M: [id number] Subs Hosp L2
[2020-03-06 09:19] LABS: Absolute Lymphocyte Count 10.53 X10^3/uL (0.83-4.51); Absolute Neutrophil Count 12.4 X10^3/uL (2.0-7.7); Basophil# 0.07 X10^3/uL; Basophil% 0.3 % (0-1); Eosinophil# 0.07 X10^3/uL; Eosinophils% 0.3 % (0-5); Hematocrit 45.9 % (40-54); Hemoglobin 15.2 g/dL (13.0-16.5); Lymphocyte # 10.53 X10^3/ul (4.0); Lymphocyte % 44.1 % (19-41); Mean Corp Hgb Conc 33.1 g/dL (32-36); Mean Corpuscular Hgb 30.8 pg (27.0-32.0); Mean Corpuscular Volume 92.9 fL (80-94); Mean Platelet Vol. 9.8 fl (6.2-12.0); Monocyte# 0.53 X10^3/uL; Monocyte% 2.2 % (0-10); NRBC Flagged by Analyzer 0 % (0-5); Neutrophil # 12.36 X10^3/uL (2.7-7.7); Neutrophil % 51.7 % (47-70); POSITIVE DIFFERENTIAL YES; POSITIVE MORPHOLOGY YES; Platelet Count 543 K/mm3 (150-450); RBC Distribution Width CV 12.1 % (11.6-14.6); RBC Distribution Width SD 41.3 fl (35.1-43.9); Red Blood Count 4.94 M/mm3 (4.6-6.2); White Blood Count 23.9 K/mm3 (4.4-11.0)
[2020-03-06 09:45] LABS: Differential Indicated SCAN CRITERIA MET
[2020-03-06 09:49] LABS: ALB/GLOB Ratio 0.7 RATIO (0.9-2.4); AST(SGOT) 17 U/L (15-37); Alanine Aminotransfer ALT/SGPT 40 U/L (16-61); Albumin, Serum 2.6 g/dL (3.2-5.0); Alkaline Phosphatase 80 U/L (45-117); Anion Gap 7 (5-15); BUN 18 mg/dL (7-18); BUN/Creat Ratio 20.7 RATIO (10-20); CRP 4.47 mg/L (0.0-3.0); Calcium,Total 8.8 mg/dL (8.5-10.1); Chloride 104 mmol/L (98-107); Creatinine, Serum 0.87 mg/dL (0.70-1.30); EST Glomerular Filtration Rate 96 mL/min (>60); Est Glom Filt Rate - Afr Amer 116 mL/min (>60); Estimated Creatinine Clearance 100.34 ml/min; Globulin 3.6 g/dL (2.2-4.2); Glucose 191 mg/dL (74-106); Magnesium 2.4 mg/dL (1.6-2.6); Potassium 3.5 mmol/L (3.5-5.1); Protein, Total 6.2 g/dL (6.4-8.2); Sodium Level 137 mmol/L (136-145)
--- NOTE | 2020-03-06 10:17 | NURSING ---
92% 5L [place] sitting at rest. 88 on 5L [place] while ambulating. Recovered within 5 minutes to 92% on 5L [place]
--- NOTE | 2020-03-06 10:45 | CASEMGMT ---
RN CM Note: Patient still requiring 5L NC @ rest and 5L NC for ambulation. Per Dr. Bertrand's note- pt to need 4L NC at rest and <6L on ambulation for dc. Spoke with Dr. Bertrand re: follow up for patient as he does not have PCP. Appointment made with pulmonology office for Thursday, Apr 02, 2020 @ 2:15 pm and per catrachito in office, a note is being placed for nurse to call patient after discharge to check on his progress. -Call to patient's room. Updated that no dc today, and oxygen will be rechecked tomorrow. Updated on above appointment and if patient has questions, difficulty @ home, can contact Dr. Bertrand's office. Encouraged patient to set up with PCP and he will discuss with his . He has list given earlier of area PCP's where he lives. -Patient does have pulse oximeter at home. Jermaine ESCUDERO RN ACM
[2020-03-07 03:06] VITALS: BP 117/73; PULSE 63; RESP 18; TEMP 36.2; O2SAT 96
[2020-03-07] MEDS: 0.9% Saline Lock 10 ML Syringe IV ×2 (03:10→08:33)
[2020-03-07 03:14] VITALS: O2SAT 96
[2020-03-07 07:46] LABS: Anion Gap 2 (5-15); BUN 17 mg/dL (7-18); BUN/Creat Ratio 23.7 RATIO (10-20); Calcium,Total 8.6 mg/dL (8.5-10.1); Chloride 107 mmol/L (98-107); Creatinine, Serum 0.72 mg/dL (0.70-1.30); EST Glomerular Filtration Rate 119 mL/min (>60); Est Glom Filt Rate - Afr Amer 144 mL/min (>60); Estimated Creatinine Clearance 121.25 ml/min; Glucose 76 mg/dL (74-106); Magnesium 2.4 mg/dL (1.6-2.6); Phosphorus 3.7 mg/dL (2.5-4.9); Potassium 4.6 mmol/L (3.5-5.1); Sodium Level 139 mmol/L (136-145)
[2020-03-07] MEDS: Enoxaparin 40 MG/0.4 ML Syringe SC (08:26)
[2020-03-07] MEDS: Furosemide 20 MG/2 ML VIAL IV (08:33)
[2020-03-07 08:35] VITALS: O2SAT 86; O2SAT 88; O2SAT 90
[2020-03-07 08:37] VITALS: BP 114/68; PULSE 74; RESP 16; TEMP 36.3; O2SAT 90
--- NOTE | 2020-03-07 08:46 | PCM.DC ---
- Discharge Diagnoses Current Active Problems: Current Active and Chronic Problems Hypoxia (Acute) COVID-19 (Acute) Lactic acid acidosis (Acute) Leucocytosis (Acute) You will use the following diet at home:: Regular Your food should be the consistency of: Regular Discharge Activity: May Not Drive - for 2 weeks until sees PCP Weight Bearing Status: Weight bearing as tolerated Call your doctor if you observe: Fever of 101 or Higher, Coldness, Increased Pain, Numbness or Tingling, Inability to urinate, Inability to have a bowel movement, Shortness of breath, Dizziness, Fainting spells, Swelling in the ankles, Chest pain, Prolonged hiccoughing, Increased palpitations (irregular heartbeat), Calf discomfort, Uncontrolled pain Allergies/Adverse Reactions: Allergies No Known Allergies Allergy (Verified 02/26/20 10:48) Medications to take at Discharge Albuterol IH (ProAir) [Proair Hfa] 1 - 2 puff INHALATION Q4H PRN PRN 02/26/20 Apixaban [Eliquis] 2.5 mg PO BID #30 tab 03/07/20 The following prescriptions were given: Apixaban [Eliquis] 2.5 mg PO BID #30 tab Transmission Status: Pending to [facility] Primary Care Physician: Care Physician,No Primary [Primary Care Provider] - Please follow up with your Primary Care Physician in: IN 2 WEEKS Test Results: Test results from this visit will be discussed in further detail at your follow-up appointment, if applicable. Please Follow Up With: Huseyin Bertrand MD When: Thursday, Maria Elena Chen CNP
--- NOTE | 2020-03-07 08:48 | PCM.DC.SUM ---
Discharge Date and Diagnosis - Problem List Patient Problems: Active and Suspected Problems Hypoxia (Acute) COVID-19 (Acute) Lactic acid acidosis (Acute) Leucocytosis (Acute) Date of Admission: 02/26/20 Date of Discharge: 03/07/20 - Primary Discharge Diagnosis Acute Problems: Active Problems Hypoxia (Acute) COVID-19 (Acute) Lactic acid acidosis (Acute) Leucocytosis (Acute) Hospital Course and Treatment Summary of Care Provided: The patient is a 60 year old M with no significant past medical history was admitted with shortness of breath for 9 to 10 days was tested COVID-19 positive. Patient attended admission pending on 02/10/2020 and he admits not wearing mask. 1. Acute hypoxic respiratory failure secondary to acute COVID-19 bilateral pneumonia: Patient was admitted on Covid cohort floor. Patient completed IV remdesivir, Decadron 6 mg daily 10 days. Patient's D-dimer elevated 0.84 therefore on Lovenox 40 mils subcu twice daily and is discharged on Eliquis 2.5 mg twice daily for 2 more weeks. Patient was on high oxygen 10 to 12 L/min. Gradually his oxygenation improved but took a long time. Patient also had leukocytosis which initially was elevated because of COVID-19 infection but later on reactive due to dexamethasone. Patient had thrombocytosis probably due to COVID-19 infection. His pulse ox 88% at rest on room air, 86% on ambulation on room air and 90% on 3 L of oxygen on ambulation. Patient has albuterol inhaler at home. Discussed with special education case manager. Patient discharged on 3 to 4 L of oxygen continuously. Patient is ambulatory in home and in the community and requires home oxygen with portability at rest and ambulation. 2. Acute COVID-19 pneumonia with hypoxia, Patient respiratory status is Stable 3. Lactic acidosis secondary to hypoxia 4. DVT PPx- Lovenox SC Discharge medication reconciliation done. Discharge follow-up instructions completed. Discharge process discussed with the patient and all questions were answered to patient's satisfaction. Prescription for Eliquis 2.5 mg sent to [facility] retail pharmacy. Follow-up in pulmonary clinic in 3 to 4 weeks with nurse practitioner, Maria Elena Chen. Patient about 20 days past exposure to COVID-19. Total time spent, exact 35 minutes on discharge meds reconciliation, examination, coordination of care with nurses and ancillary staff, review of imaging and blood test and discussion with the patient on follow-up instructions Clinical Impression(s) from Imaging Studies Chest X-Ray 02/26/20 11:11 IMPRESSION: Worsening bilateral pneumonia. Chest CTA 02/26/20 18:50 IMPRESSION: No demonstrated pulmonary embolism or arterial dissection. Bilateral diffuse pulmonary infiltrates. Mild mediastinal adenopathy. Small hiatal hernia. Patient Problems: Active and Suspected Problems Hypoxia (Acute) COVID-19 (Acute) Lactic acid acidosis (Acute) Leucocytosis (Acute) Objective: Patient is still requires 3 L of oxygen on ambulation. Pulse ox 88% on room air at rest, drops to 86% on room air on ambulation. Physical exam General: Alert, Oriented x3, Cooperative HEENT: Atraumatic, PERRLA, EOMI, Normocephalic Oral: No Gingival or Mucosal Lesions/ Ulcerations Neck: Supple, No JVD, Negative Carotid Bruits Lungs: Air entry diminished in bilateral lung bases. No crepitation/rhonchi Cardiovascular: Regular rate, Regular Rhythm, Normal S1, Normal S2, No murmurs Abdomen: Bowel Sounds Present, Soft, Non Tender, Non-Distended : No renal angle tenderness. No suprapubic tenderness. Extremities: No edema, Capillary Refill Less than 3 Seconds Skin: No rashes, No breakdown Musculoskeletal: No Tenderness to Palpation of Joints or Extremities Neurological: Cranial nerves II-XII grossly intact, Deep Tendon Reflexes 2+/4 and Symmetrical, Neuro grossly intact Psych/Mental Status: Normal Affect, Appropriate. - Physical Exam Vitals/I&O's: Vital Signs Temp Pulse Resp BP Pulse Ox 97.4 F L 74 16 114/68 90 03/07/20 08:37 03/07/20 08:37 03/07/20 08:37 03/07/20 08:37 03/07/20 08:37 Oxygen Flow Rate (L/min) [ 3 AMBULATION with Oxygen] Oxygen Flow Rate (L/min) 3 Oxygen Delivery Method Nasal Cannula Weight: 216 lb 0.002 oz Body Mass Index (BMI) 29.2 Intake and Output for Last 24 Hours 03/05/20 03/06/20 03/07/20 23:59 23:59 23:59 Intake Total 1910 / 1910 990 / 990 250 / 250 Output Total 2150 / 2150 700 / 700 Balance -240 / -240 290 / 290 250 / 250 Laboratory Results 03/06/20 09:05: WBC 23.9 H, RBC 4.94, Hgb 15.2, Hct 45.9, MCV 92.9, MCH 30.8, MCHC 33.1, RDW Std Deviation 41.3, RDW Coeff of Soumya 12.1, Plt Count 543 H, MPV 9.8, Immature Gran % (Auto) 1.400 H, Neut % (Auto) 51.7, Lymph % (Auto) 44.1 H, [place] % (Auto) 2.2, Eos % (Auto) 0.3, Baso % (Auto) 0.3, Absolute Neuts (auto) 12.4 H, Absolute Lymphs (auto) 10.53 H, Nucleated RBC % 0, Differential Comment COMMENT 03/06/20 09:05: Sodium 137, Potassium 3.5, Chloride 104, Carbon Dioxide 26.0, Anion Gap 7, BUN 18, Creatinine 0.87, Estim Creat Clear Calc 100.34, Est GFR (MDRD) Af Amer 116, Est GFR (MDRD) Non-Af 96, BUN/Creatinine Ratio 20.7 H, Glucose 191 H, Calcium 8.8, Magnesium 2.4, Total Bilirubin 0.80, AST 17, ALT 40, Alkaline Phosphatase 80, C-React Prot Ext Range 4.47 H, Total Protein 6.2 L, Albumin 2.6 L, Globulin 3.6, Albumin/Globulin Ratio 0.7 L 03/07/20 06:10: Sodium 139, Potassium 4.6, Chloride 107, Carbon Dioxide 30.0, Anion Gap 2 L, BUN 17, Creatinine 0.72, Estim Creat Clear Calc 121.25, Est GFR (MDRD) Af Amer 144, Est GFR (MDRD) Non-Af 119, BUN/Creatinine Ratio 23.7 H, Glucose 76, Calcium 8.6, Phosphorus 3.7, Magnesium 2.4 Current Medications Acetaminophen (Acetaminophen 325 Mg Tablet) 650 mg PO Q6H PRN PRN PRN Reason: Pain Score 1-10/Temp > 100.7 F Last Admin: 02/27/20 00:22 Dose: 650 mg Documented by: Al Hydroxide/Mg Hydroxide (Mag Hydrox/Al Hydrox/Simeth 30 Ml Udc) 30 ml PO Q6H PRN PRN PRN Reason: Gastric Burning Enoxaparin Sodium (Enoxaparin 40 Mg/0.4 Ml Syringe) 40 mg SC BID JOSE L Last Admin: 03/07/20 08:26 Dose: 40 mg Documented by: Sodium Chloride () 250 mls @ 15 mls/hr IV .[id number] PRN PRN Reason: Saline Flush Sodium Chloride () 250 mls @ 15 mls/hr IV .[id number] PRN PRN Reason: Additional IVPB Infusion Ondansetron HCl (Ondansetron 4 Mg/2 Ml Vial) 4 mg IV Q8H PRN PRN PRN Reason: NAUSEA/VOMITING Psyllium Hydrophilic Mucilloid (Psyllium 1 Packet) 1 packet PO DAILY PRN PRN PRN Reason: Constipation Senna/Docusate Sodium (Senna/Docusate Sodium 1 Tablet) 2 tablet PO BID PRN PRN PRN Reason: Constipation Sodium Chloride (0.9% Saline Lock 10 Ml Syringe) 10 - 40 ml IV UD PRN PRN Reason: SALINE FLUSH Last Admin: 03/07/20 08:33 Dose: 10 ml Documented by: Discharge Activity: May Not Drive - for 2 weeks until sees PCP Weight Bearing Status: Weight bearing as tolerated Call your doctor if you observe: Fever of 101 or Higher, Coldness, Increased Pain, Numbness or Tingling, Inability to urinate, Inability to have a bowel movement, Shortness of breath, Dizziness, Fainting spells, Swelling in the ankles, Chest pain, Prolonged hiccoughing, Increased palpitations (irregular heartbeat), Calf discomfort, Uncontrolled pain Home Medications: Medications to take at Discharge Albuterol IH (ProAir) [Proair Hfa] 1 - 2 puff INHALATION Q4H PRN PRN 02/26/20 Apixaban [Eliquis] 2.5 mg PO BID #30 tab 03/07/20 Following Prescriptions Were Given to Patient: Apixaban [Eliquis] 2.5 mg PO BID #30 tab Transmission Status: Received by [facility] Primary Care Physician: Care Physician,No Primary [Primary Care Provider] - Please follow up with your Primary Care Physician in: IN 2 WEEKS Please Follow Up With: Huseyin Bertrand MD When: ThursdayMaria Elena CNP Medical Necessity - Tobacco Use Smoking Status: Former smoker Tobacco Use: Non-smoker Meaningful Use Info Meaningful Use Diagnoses (Choose all that apply): None applicable Inpatient E&M: 26761 Disch Hosp
--- NOTE | 2020-03-07 09:02 | PN_ITS ---
Patient Problems: Active and Suspected Problems Hypoxia (Acute) COVID-19 (Acute) Lactic acid acidosis (Acute) Leucocytosis (Acute) Subjective: Patient did well overnight. No acute issues were reported. Patient states he feels slightly improved compared to previous. Patient is still having some dyspnea on exertion and requiring supplemental oxygen to maintain saturations. Objective: Patient requiring 3 L nasal cannula to ambulate within the room. - Physical Exam Vitals/I&O's: Vital Signs Temp Pulse Resp BP Pulse Ox 36.3 C L 74 16 114/68 90 03/07/20 08:37 03/07/20 08:37 03/07/20 08:37 03/07/20 08:37 03/07/20 08:37 Oxygen Flow Rate (L/min) [ 3 AMBULATION with Oxygen] Oxygen Flow Rate (L/min) 3 Oxygen Delivery Method Nasal Cannula Weight: 97.976 kg Body Mass Index (BMI) 29.2 Intake and Output for Last 24 Hours 03/05/20 03/06/20 03/07/20 23:59 23:59 23:59 Intake Total 1910 / 1910 990 / 990 250 / 250 Output Total 2150 / 2150 700 / 700 Balance -240 / -240 290 / 290 250 / 250 General: Alert, Oriented x3, Cooperative, No apparent distress, Well developed, Well nourished, - - Speaking in full sentences. HEENT: Atraumatic, PERRLA, EOMI, Normocephalic, - - No scleral icterus or injection noted Oral: Moist Mucosa, No Gingival or Mucosal Lesions/ Ulcerations Neck: Supple, No JVD, No Nodes, Trachea Midline Lungs: No rhonchi, No wheeze, No rales, Diminished, - - Symmetric expansion. No dullness to percussion. Cardiovascular: Regular rate, Regular Rhythm, Normal S1, Normal S2, No murmurs, No rub noted, No Gallop Abdomen: Bowel Sounds Present, Soft, Non Tender, Non-Distended Extremities: No clubbing, No cyanosis, No edema, Capillary Refill Less than 3 Seconds Skin: No rashes, No breakdown Musculoskeletal: No Tenderness to Palpation of Joints or Extremities Lymphatic: No Cervical, Supraclavicular, or Inguinal Adenopathy Neurological: Cranial nerves II-XII grossly intact, Neuro grossly intact, Motor Exam 5/5 strength throughout Psych/Mental Status: Alert and oriented to time, place, person, mood and affect Laboratory Results 03/06/20 09:05: WBC 23.9 H, RBC 4.94, Hgb 15.2, Hct 45.9, MCV 92.9, MCH 30.8, MCHC 33.1, RDW Std Deviation 41.3, RDW Coeff of Souyma 12.1, Plt Count 543 H, MPV 9.8, Immature Gran % (Auto) 1.400 H, Neut % (Auto) 51.7, Lymph % (Auto) 44.1 H, [place] % (Auto) 2.2, Eos % (Auto) 0.3, Baso % (Auto) 0.3, Absolute Neuts (auto) 12.4 H, Absolute Lymphs (auto) 10.53 H, Nucleated RBC % 0, Differential Comment COMMENT 03/06/20 09:05: Sodium 137, Potassium 3.5, Chloride 104, Carbon Dioxide 26.0, Anion Gap 7, BUN 18, Creatinine 0.87, Estim Creat Clear Calc 100.34, Est GFR (MDRD) Af Amer 116, Est GFR (MDRD) Non-Af 96, BUN/Creatinine Ratio 20.7 H, Glucose 191 H, Calcium 8.8, Magnesium 2.4, Total Bilirubin 0.80, AST 17, ALT 40, Alkaline Phosphatase 80, C-React Prot Ext Range 4.47 H, Total Protein 6.2 L, Albumin 2.6 L, Globulin 3.6, Albumin/Globulin Ratio 0.7 L 03/07/20 06:10: Sodium 139, Potassium 4.6, Chloride 107, Carbon Dioxide 30.0, Anion Gap 2 L, BUN 17, Creatinine 0.72, Estim Creat Clear Calc 121.25, Est GFR (MDRD) Af Amer 144, Est GFR (MDRD) Non-Af 119, BUN/Creatinine Ratio 23.7 H, Glucose 76, Calcium 8.6, Phosphorus 3.7, Magnesium 2.4 Current Medications Acetaminophen (Acetaminophen 325 Mg Tablet) 650 mg PO Q6H PRN PRN PRN Reason: Pain Score 1-10/Temp > 100.7 F Last Admin: 02/27/20 00:22 Dose: 650 mg Documented by: Al Hydroxide/Mg Hydroxide (Mag Hydrox/Al Hydrox/Simeth 30 Ml Udc) 30 ml PO Q6H PRN PRN PRN Reason: Gastric Burning Enoxaparin Sodium (Enoxaparin 40 Mg/0.4 Ml Syringe) 40 mg SC BID JOSE L Last Admin: 03/07/20 08:26 Dose: 40 mg Documented by: Sodium Chloride () 250 mls @ 15 mls/hr IV .[id number] PRN PRN Reason: Saline Flush Sodium Chloride () 250 mls @ 15 mls/hr IV .[id number] PRN PRN Reason: Additional IVPB Infusion Ondansetron HCl (Ondansetron 4 Mg/2 Ml Vial) 4 mg IV Q8H PRN PRN PRN Reason: NAUSEA/VOMITING Psyllium Hydrophilic Mucilloid (Psyllium 1 Packet) 1 packet PO DAILY PRN PRN PRN Reason: Constipation Senna/Docusate Sodium (Senna/Docusate Sodium 1 Tablet) 2 tablet PO BID PRN PRN PRN Reason: Constipation Sodium Chloride (0.9% Saline Lock 10 Ml Syringe) 10 - 40 ml IV UD PRN PRN Reason: SALINE FLUSH Last Admin: 03/07/20 08:33 Dose: 10 ml Documented by: Medical Necessity - Tobacco Use Smoking Status: Former smoker Tobacco Use: Non-smoker Assessment/Plan All Active Problems Hypoxia (Acute) COVID-19 (Acute) Lactic acid acidosis (Acute) Leucocytosis (Acute) RECOMMENDATIONS: 1. Wean supplemental oxygen to maintain saturations at or above 90%. 2. Complete Decadron 6 mg daily x10 days. 3. Patient should be using 3 L nasal cannula at all times until seen with follow-up 4. Encourage incentive spirometer use and mobilize patient as tolerated. 5. Okay to discharge from a pulmonary perspective 6. Patient should follow-up in the pulmonary office with nurse practitioner in 3 to 4 weeks IMPRESSIONS: 1. Acute hypoxemic respiratory failure secondary to COVID-19 pneumonia Plan to continue current supportive measures with supplemental oxygen to maintain saturations at or above 90%. The patient has completed his treatment course of remdesivir and remains on Decadron. Continue Lovenox for DVT prop hylaxis as ordered. Encourage incentive spirometer use and mobilize patient as tolerated. Patient appears to be improving on current plan. Patient will be given a dose of Lasix prior to discharge. Patient should stay on supplemental oxygen until seen in our office in 3 to 4 weeks and then this can be reevaluated. Patient will likely need complete pulmonary function test and walking oximetry as an outpatient. Inpatient E&M: [id number] Subs Hosp L2
--- NOTE | 2020-03-07 09:02 | CASEMGMT ---
Addendum entered by Jeramie Ballard 03/07/20 09:16: Call to patient's room. Updated that dc will be today and home oxygen has been ordered from [facility]. Verified patient has ability for electric at home and recommended this be set up prior to his discharge. Patient states they will have electric available when he gets home. -Updated [facility] that patient will have electric available for oxygen use. Phone # for hospital room placed on facesheet so they can call him direct. Patient's will be home, and pt will let her know to be available if delivery will be completed prior to dc. -patient will arrange his ride home and does not think there will be difficulty with this. -Patient states he has a text from [facility] and he does not know what to do with this. AZEEM SON called to [facility]- Eliquis was ordered for dc and savings card applied. No cost to patient and they will deliver to his room. Patient updated. Original Note: AZEEM SON Note: Dr. Galicia updated patient he will be returning home today. Oxygen testing completed and will need home oxygen. Script and clinical faxed to [facility]. Call to notify of home oxygen referral. Portable tank to be brought to [facility]. Jermaine ESCUDERO RN ACM
[2020-03-07 11:04] VITALS: BP 114/69; PULSE 82; RESP 16; TEMP 36.2; O2SAT 92
--- NOTE | 2020-03-07 11:56 | CASEMGMT ---
RN CM Note: Text to Dr Galicia to clarify how long to quarantine @ home. Recommendation is 2 more days after discharge. Nursing will place on dc instructions for patient. Jermaine SmithN RN ACM
--- NOTE | 2020-03-10 16:39 | CASEMGMT ---
AZEEM SON Discharge Follow-up Phone Call: JOANNERk: Rajat Strata: 2 Call Date: 03/10/20 Discharge Date: 03/07/20 Time of Call: [id number] Duration: 3 min Admitting Diagnosis: COVID 19 AZEEM SON completed follow-up phone call after recent hospitalization. Patient states he is doing better. Had no questions or concerns regarding discharge instructions. Patient filled prescriptions without any issues. Patient states he continues to wear his oxygen at home. Patient aware of follow-up appt. Patient had no further questions or concerns at this time.
== END 2020-03-07 13:45 | disposition home or self-care (01) | DRG 177 ==
LOC: ED 11:27 → MS2 13:05
PROVIDERS: Internal Medicine Critical Care Medicine; Internal Medicine Infectious Disease; Admitting Provider Internal Medicine; Emergency Provider Emergency Medicine; Visit Provider Internal Medicine
DX: U07.1 COVID-19 (principal); J12.89 Other viral pneumonia; J96.01 Acute respiratory failure with hypoxia; E87.2 Acidosis; T38.0X5A Adverse effect of glucocorticoids and synthetic analogues, initial encounter; Z87.891 Personal history of nicotine dependence
CPT/HCPCS: 36415; 71045; 71275; 80048; 80053; 81001; 83605; 83735; 84075; 84100; 84484; 85025; 85027; 85379; 85610; 85730; 86140; 87040; 87086; 87635; 93005; 94660; 97803; 99251; 99285; J7050; Q9967; A4216; G0463; J1940; U0002

== ENCOUNTER → 2020-06-08 10:39 | Outpatient (CLI) | payer SELFPAY, OTHER ==
[2020-03-22 13:38] VITALS: BMI 29.7
--- NOTE | 2020-06-09 08:44 | PFT ---
INTRODUCTION: The patient is a 60-year-old male who presents for pulmonary function studies secondary to a diagnosis of COVID-19. Respiratory therapy reports good patient effort. Bronchodilators were used during testing. INTERPRETATION: Forced expiration spirometry demonstrates no evidence of a large airways obstructive ventilatory defect. There was a significant response to aerosolized bronchodilators. Spirograms are of good quality and plateau normally. Body plethysmography was performed and reveals lung volumes to be within normal limits. Diffusing capacity by single breath CO was within normal limits. IMPRESSION: Grossly normal pulmonary function studies with significant bronchodilator response noted.
== END ==
PROVIDERS: PCP Internal Medicine; Referring Provider Nurse Practitioner Acute Care; Visit Provider Nurse Practitioner Acute Care
DX: U07.1 COVID-19 (principal)
CPT/HCPCS: 94060; 94726; 94729